=== PATIENT | female | born 1975 | race Caucasian/White ===

== ENCOUNTER → 2017-04-11 | Outpatient (CLI) | payer BC ==
[~2017-04-11] MED LIST: CIPRO500 MG PO; DEXILANT PO; HYDROCHLOROTHIA25 MG PO; HYDROCODONE-AP1 EA23 PO; POTASSIUM CHLO20 ME1 PO; PROAIR HFA INH8.5 GM INH; SINCALIDE 3 MCG/VIAL INJ ONE; SYMAX DUOTAB0.375 MG PO; VITAMIN D1000 UNI1 PO; Z.0.LEVAQUIN500 MG PO; ZOFRAN ODT4 MG PO
--- NOTE | 2017-04-11 16:35 | Diagnostic Imaging Report ---
Hepatobiliary Scan with Gallbladder Ejection Fraction Clinical information: Intermittent upper abdominal pain Report: Following intravenous administration of 6.8 millicuries of Tc-99m mebrofenin, dynamic images of the abdomen in the anterior projection were obtained through 46 minutes. Sincalide (CCK analog) 1.7 micrograms was administered intravenously over 30 minutes with additional imaging for determination of gallbladder ejection fraction. Perfusion to the liver is normal. Extraction of tracer from the blood pool by the liver parenchyma is normal. Tracer is seen promptly within the biliary tract. The gallbladder begins to fill by 18 minutes post-injection of tracer. Tracer is seen in the small bowel by 5 minutes. The gallbladder ejection fraction with administration of sincalide is 92% (normal greater than 40%). Impression: 1. Filling of the gallbladder excludes the diagnosis of acute cystic duct obstruction/acute cholecystitis. 2. Normal gallbladder ejection fraction of 92% does not support the clinical diagnosis of chronic cholecystitis/gallbladder dyskinesia. Signed by: Dr. Elida Plummer M.D. on 04/11/2017 4:31 PM
== END ==
LOC: NM 12:54
PROVIDERS: ATTEND Internal Medicine Gastroenterology
DX: R10.11 Right upper quadrant pain (principal); R10.12 Left upper quadrant pain
CPT/HCPCS: 78227; 81025; A9537; J2805

== ENCOUNTER → 2018-06-06 | Outpatient (CLI) | payer BC ==
[~2018-06-06] MED LIST changes: +DIATRIZOATE MEGL/DIATRIZOA SOD 30 ML BTL PO ONE; -SINCALIDE 3 MCG/VIAL INJ ONE
--- NOTE | 2018-06-06 16:23 | Diagnostic Imaging Report ---
EXAMINATION: CT of the abdomen and pelvis without contrast. TECHNIQUE: Spiral CT images of the abdomen and pelvis were performed from the lung bases to the lesser trochanters. No intravenous contrast was given per iodine allergy. Coronal and sagittal reformatted images were obtained. COMPARISON: Right upper quadrant pain, cholecystectomy in April 25, 2018 CLINICAL HISTORY:Abdominal pain DISCUSSION: ABSENCE OF INTRAVENOUS CONTRAST DECREASES SENSITIVITY FOR DETECTION OF FOCAL LESIONS AND VASCULAR PATHOLOGY. ABDOMEN/PELVIS: LOWER THORAX: Unremarkable. HEPATOBILIARY:No focal hepatic lesion or intrahepatic biliary dilatation. The gallbladder has been removed with metallic clips in the gallbladder fossa. Hepatic parenchyma is diffusely hypoattenuating relative to the spleen, compatible with steatosis. SPLEEN: No splenomegaly. PANCREAS: No focal masses or ductal dilatation. ADRENALS: No adrenal nodules. KIDNEYS/URETERS: No hydronephrosis, stones, or solid mass lesions. PELVIC ORGANS/BLADDER: Urinary bladder is incompletely distended but otherwise unremarkable. Uterus is anteflexed and appears normal. No adnexal mass. PERITONEUM/RETROPERITONEUM: Trace free pelvic fluid average attenuation 10-15 Hounsfield units. Dropped surgical clip in the deep pelvis. No pneumoperitoneum. LYMPH NODES: No pelvic sidewall, retroperitoneal, or mesenteric lymphadenopathy. VESSELS: Limited evaluation without intravenous contrast. The abdominal aorta is nonaneurysmal. GI TRACT: The large bowel shows no distention or wall thickening. Status post appendectomy. No small bowel dilatation to suggest obstruction. BONES AND SOFT TISSUES: No osseous destructive lesions. Bone islands intertrochanteric right femur and left femoral head. Degenerative disc changes and facet arthropathy of the lower lumbar spine. Transitional lumbosacral anatomy. IMPRESSION: No acute intra-abdominal or pelvic CT abnormalities. Trace free pelvic fluid is likely physiologic in a patient of this age. Hepatic steatosis. Signed by: Dr. Jermaine Coy M.D. on 06/06/2018 4:20 PM
== END ==
LOC: CT 14:31
PROVIDERS: ATTEND Internal Medicine Gastroenterology
DX: R10.11 Right upper quadrant pain (principal)
CPT/HCPCS: 74176; 81025

== ENCOUNTER → 2018-06-16 | Day surgery (SDC) | payer BC ==
[~2018-06-16] MED LIST changes: -DIATRIZOATE MEGL/DIATRIZOA SOD 30 ML BTL PO ONE; +FENTANYL CITRATE/PF 100MCG/2 ML INJ ONE; +HYDRALAZINE HCL 20 MG/ML VIAL ONE; +HYOSCYAMINE SULFATE 0.5 MG/ML INJ ONE; +LABETALOL HCL 5 MG/ML 20ML VIAL ONE; +LIDOCAINE HCL 2% LOCAL INJ 5 ML SDV VIAL INJ ONE; +METOCLOPRAMIDE HCL 10 MG/2ML VIAL ONE; +MIDAZOLAM HCL 2 MG/2 ML VIAL ONE; +ONDANSETRON HCL INJ 2MG/ML 2ML 2 MG/ML VIAL ONE; +PROPOFOL IV EMULSION 10 MG/ML 50 ML VIAL ONE
[2018-06-16 09:27] VITALS: BP 135/79
[2018-06-16 09:45] VITALS: BP 132/95
[2018-06-16 10:00] VITALS: BP 135/80
[2018-06-16 10:09] LABS: WBC,FECAL (FECAL LACTOFERRIN) NEGATIVE (NEGATIVE)
[2018-06-16 10:15] VITALS: BP 132/70
[2018-06-16 10:30] VITALS: BP 110/99
[2018-06-16 11:00] VITALS: BP 117/80
[2018-06-16 14:20] LABS: C DIFFICILE TOXIN A&B AMP PROB NEGATIVE (NEGATIVE)
--- NOTE | 2018-06-16 19:58 | Operative Report ---
DATE OF PROCEDURE: 06/16/2018 SURGEON: Herman Brown MD PROCEDURES: Esophagogastroduodenoscopy with biopsies and colonoscopy with polypectomy and biopsies. INDICATIONS FOR EGD: Upper abdominal pain, nausea, and vomiting. INDICATIONS FOR COLONOSCOPY: Diarrhea and right lower quadrant pain. MEDICATIONS: The patient was done under MAC. Please see anesthesiologist's note. PROCEDURE IN DETAIL: With the patient in left lateral decubitus position, flexible fiberoptic Olympus gastroscope was introduced into the esophagus under direct visualization without any difficulty. There was some patchy erythema noted in distal esophagus. GE junction was nodular and that was biopsied. The scope was then advanced with ease into the stomach and mucosa overlying the antrum and the body revealed some patchy areas of erythema and low-grade to moderate edema and biopsies were obtained and sent to stain for H pylori. Pylorus appeared to be of normal contour and shape, it was intubated with ease and the scope was advanced all the way to the second portion of the duodenum. The scope was then withdrawn slowly. Mucosa overlying the proximal second portion and duodenal bulb grossly appeared to be within normal limits. Biopsies were obtained to rule out sprue. The scope was then withdrawn back into the stomach and retroflexed and mucosa overlying the fundus and cardia appeared to be within normal limits. The scope was then straightened out and stomach was decompressed. The scope was subsequently withdrawn. The patient tolerated procedure well. IMPRESSION: 1. Distal esophagitis. 2. Gastroesophageal junction, nodular, biopsied. 3. Gastritis, biopsied. Biopsies sent to stain for H pylori. 4. Rule out sprue. PLAN: Follow up histology. Initiate Dexilant 60 mg one p.o. q.a.m. before meals and Carafate 1 g p.o. before meals t.i.d. and at bedtime. The patient was then turned around and after adequate lubrication of the anal canal, a flexible fiberoptic Olympus colonoscope was inserted into the rectum with ease and advanced all the way to the cecum. Mucosa overlying the cecum appeared to be within normal limits. The ileocecal valve was intubated and the scope was advanced into the terminal ileum. Biopsies were obtained. The scope was then withdrawn back into the colon. It was then withdrawn slowly. Mucosa overlying the ascending colon appeared to be within normal limits. One polyp was snared from the transverse colon. The mucosa overlying the transverse revealed some patchy areas of erythema and low-grade edema. The inflammatory changes were more marked in the left colon, but there was still patchy mild and multiple random biopsies were obtained. One polyp was hot biopsied from the sigmoid colon and one polyp was hot biopsied from the rectum. The scope was then retroflexed into the distal rectum and small internal hemorrhoids were noted, none of which were actively bleeding. The scope was then straightened out. It was subsequently withdrawn after securing an adequate stool specimen that was sent for the appropriate stool studies. The patient tolerated procedure well. IMPRESSION: 1. Transverse colon polyp, snared. 2. Mild patchy left-sided colitis. 3. Sigmoid colon polyp, hot biopsied. 4. Proctitis, mild. 5. Rectal polyp, hot biopsied. 6. Internal hemorrhoids, none actively bleeding. PLAN: Follow up histology. Follow up stool studies. Start Questran 4 g p.o. b.i.d. and Bentyl 20 mg one p.o. t.i.d. The patient might benefit from a followup colonoscopy in 3 years. Herman Brown MD [facility]ANKI /[id number] cc: Slade Ballard DO
--- OUTSIDE RECORDS SUMMARY | 2018-06-18 10:28 | XMS REPORT | Summary of Care ---
Author Organization Unknown Address Unknown Phone Unavailable Encounter HQ Anair_marito([facility]) [id number] Date(s): 06/19/13 - 06/19/13 [facility] Outpatient Imaging - [address] [address]- [place] Discharge Disposition: Home Physician Attending: Brian Nowak MD Reason for Visit 786.50 - CHEST PAIN NOS Problem List No data available for this section Allergies, Adverse Reactions, Alerts No data available for this section Medications No data available for this section Medications Administered During Your Visit No data available for this section Immunizations No data available for this section
--- OUTSIDE RECORDS SUMMARY | 2018-06-18 10:28 | XMS REPORT | Summary of Care ---
Author Author [facility] Outpatient Imaging [facility] Address Unknown Phone Unavailable Encounter HQ Encntr_alivaishali(FIN) [id number] Date(s): 01/06/17 - 01/06/17 [facility] Outpatient [facility] [address] [address], [address] [place] [phone] Discharge Disposition: Home or Self Care Attending Physician: Brennan Whitaker MD Vital Signs No data available for this section Problem List No data available for this section Allergies, Adverse Reactions, Alerts No data available for this section Medications No data available for this section Results No data available for this section Immunizations No data available for this section Procedures No data available for this section Social History No data available for this section Assessment and Plan No data available for this section
--- OUTSIDE RECORDS SUMMARY | 2018-06-18 10:28 | XMS REPORT | Clinical Summary ---
Author Author [facility] Organization [facility] Address Unknown Phone Unavailable Care Team Providers Care Front Office Specialist Name Role Phone Hank Ballard MD PCP Allergies Comments Active Allergy Reactions Severity Noted Date Codeine 09/14/2017 Fish Oil 09/14/2017 Penicillins 09/14/2017 Sulfa (Sulfonamide 09/14/2017 Antibiotics) Medications End Date Status Medication Sig Dispensed Refills Start Date Active PROAIR HFA 90 Inhale 2 2 mcg/actuation inhaler puffs every 4 8 (four) hours as needed. May take every 4-6 hrs Active hydroCHLOROthiazide Take 12.5 mg 0 (HYDRODIURIL) 12.5 MG by mouth tablet daily. Active ergocalciferol (VITAMIN Take 50,000 0 D2) 50,000 unit capsule Units by mouth once a week. Active potassium gluconate 595 Take 1 tablet 0 mg (99 mg) tablet by mouth daily. Active albuterol (ACCUNEB) 0.63 Take 1 ampule 0 mg/3 mL nebulizer by solution nebulization every 6 (six) hours as needed for wheezing. Active acetaminophen (TYLENOL) Take 325 mg 0 325 MG tablet by mouth every 6 (six) hours as needed for fever. 09/23/2017 ciprofloxacin (CIPRO) 500 Take 1 tablet 10 tablet 0 MG tablet (500 mg 8 total) by mouth 2 (two) times a day for 5 days. 10/18/2017 ondansetron (ZOFRAN) 4 MG Take 1 tablet 20 tablet 0 tablet (4 mg total) 8 by mouth every 8 (eight) hours as needed for nausea or vomiting for up to 30 days. Active Problems Problem Noted Date Asthma 09/15/2017 Chronic kidney disease 09/15/2017 Overview: Normal GFR at this time Intractable cyclical vomiting with nausea 09/14/2017 Encounters Care Team Description Date Type Specialty Sherif Briones, Deshaun Coffey MD Intractable cyclical vomiting with nausea (Primary Dx); Viral gastroenteritis 09/14/2017 Emergency General Internal Medicine - 09/18/2017 after 06/17/2017 Social History Date Tobacco Use Types Packs/Day Years Used Never Smoker Smokeless Tobacco: Never Used Alcohol Use Drinks/Week oz/Week Comments No Sex Assigned at Date Recorded Not on file Industry Job Start Date Occupation Not on file Not on file Not on file Travel End Travel History Travel Start No recent travel history available. Last Filed Vital Signs Time Taken Vital Sign Reading 09/18/2017 7:18 PM CDT Blood Pressure 143/86 09/18/2017 8:13 PM CDT Pulse 94 09/18/2017 7:18 PM CDT Temperature 37 C (98.6 F) 09/18/2017 8:13 PM CDT Respiratory Rate 18 09/18/2017 7:18 PM CDT Oxygen Saturation 98% - Inhaled Oxygen - Concentration 09/14/2017 1:46 PM CDT Weight 78 kg (172 lb) 09/14/2017 1:46 PM CDT Height 149.9 cm (4' 11") 09/14/2017 1:46 PM CDT Body Mass Index 34.74 Plan of Treatment Health Maintenance Due Date Last Done Comments CERVICAL CANCER SCREENING 1998 INFLUENZA VACCINE 09/06/2018 Procedures Comments Procedure Name Priority Date/Time Associated Diagnosis ZZESTIMATED GFR STAT 09/18/2017 6:20 PM CDT COMPREHENSIVE METABOLIC STAT 09/18/2017 PANEL 6:20 PM CDT HC COMPLETE BLD COUNT STAT 09/18/2017 W/AUTO DIFF 6:[address] ABDOMEN PELVIS WO Routine 09/15/2017 CONTRAST 10:14 AM CDT XR CHEST 1 VW PORTABLE STAT 09/14/2017 2:41 PM CDT ZZESTIMATED GFR STAT 09/14/2017 2:38 PM CDT BASIC METABOLIC PANEL STAT 09/14/2017 2:38 PM CDT HC COMPLETE BLD COUNT STAT 09/14/2017 W/AUTO DIFF 2:38 PM CDT ECG 12-LEAD STAT 09/14/2017 1:46 PM CDT after 06/17/2017 Results * Estimated GFR (09/18/2017 6:20 PM CDT) Only the most recent of 2 results within the time period is included. GFR Non Af Amer 61 mL/min/1.73 m2 [facility] DEPARTMENT OF PATHOLOGY AND GENOMIC MEDICINE GFR Af Amer 74 mL/min/1.73 m2 [facility] DEPARTMENT OF Comment: PATHOLOGY AND Chronic kidney disease: <60 GENOMIC MEDICINE mL/min/1.73m2 Kidney failure: <15 mL/min/1.73m2 The estimated GFR is calculated from the IDMS-traceable Modification of Diet in Renal Disease Equation. The accuracy of the calculation is poor when the creatinine is normal. Calculated values >90 mL/min/1.73m2 are not reported. This equation has not been validated in children (<18 years), women, the elderly (>70 years), or ethnic groups other than Caucasians and Americans. Specimen Plasma specimen Performing Organization Address City/State/Zipcode Phone Number [facility] [place] [address] [place] [address] PATHOLOGY AND GENOMIC MEDICINE * CBC with platelet and differential (09/18/2017 6:20 PM CDT) Only the most recent of 2 results within the time period is included. WBC 10.54 4.50 - 11.00 k/uL [facility] DEPARTMENT OF PATHOLOGY AND GENOMIC MEDICINE RBC 4.41 4.20 - 5.50 m/uL [facility] DEPARTMENT OF PATHOLOGY AND GENOMIC MEDICINE HGB 12.6 12.0 - 16.0 g/dL [facility] DEPARTMENT OF PATHOLOGY AND GENOMIC MEDICINE HCT 39.2 37.0 - 47.0 % [facility] DEPARTMENT OF PATHOLOGY AND GENOMIC MEDICINE MCV 88.9 82.0 - 100.0 fL [facility] DEPARTMENT OF PATHOLOGY AND GENOMIC MEDICINE MCH 28.6 27.0 - 34.0 pg [facility] DEPARTMENT OF PATHOLOGY AND GENOMIC MEDICINE MCHC 32.1 31.0 - 37.0 g/dL [facility] DEPARTMENT OF PATHOLOGY AND GENOMIC MEDICINE RDW - SD 40.6 37.0 - 55.0 fL [facility] DEPARTMENT OF PATHOLOGY AND GENOMIC MEDICINE MPV 9.9 8.8 - 13.2 fL [facility] DEPARTMENT OF PATHOLOGY AND GENOMIC MEDICINE Platelet count 358 150 - 400 k/uL [facility] DEPARTMENT OF PATHOLOGY AND GENOMIC MEDICINE Nucleated RBC 0.00 /100 WBC [facility] DEPARTMENT OF PATHOLOGY AND GENOMIC MEDICINE Neutrophils 68.3 39.0 - 69.0 % [facility] DEPARTMENT OF PATHOLOGY AND GENOMIC MEDICINE Lymphocytes 21.4 (L) 25.0 - 45.0 % [facility] DEPARTMENT OF PATHOLOGY AND GENOMIC MEDICINE Monocytes 6.3 0.0 - 10.0 % [facility] DEPARTMENT OF PATHOLOGY AND GENOMIC MEDICINE Eosinophils 3.1 0.0 - 5.0 % [facility] DEPARTMENT OF PATHOLOGY AND GENOMIC MEDICINE Basophils 0.6 0.0 - 1.0 % [facility] DEPARTMENT OF PATHOLOGY AND GENOMIC MEDICINE Specimen Blood Performing Organization Address City/State/Zipcode Phone Number [facility] [phone] [place] [address] [place] [address] PATHOLOGY AND GENOMIC MEDICINE * Comprehensive metabolic panel (09/18/2017 6:20 PM CDT) Sodium 138 135 - 148 mEq/L [facility] DEPARTMENT OF PATHOLOGY AND GENOMIC MEDICINE Potassium 4.4 3.5 - 5.0 mEq/L [facility] DEPARTMENT OF PATHOLOGY AND GENOMIC MEDICINE Chloride 104 98 - 112 mEq/L [facility] DEPARTMENT OF PATHOLOGY AND GENOMIC MEDICINE CO2 22 (L) 24 - 31 mEq/L [facility] DEPARTMENT OF PATHOLOGY AND GENOMIC MEDICINE Anion gap 12@ANIO 7 - 15 mEq/L [facility] DEPARTMENT OF PATHOLOGY AND GENOMIC MEDICINE BUN 14 6 - 20 mg/dL [facility] DEPARTMENT OF PATHOLOGY AND GENOMIC MEDICINE Creatinine 1.0 (H) 0.5 - 0.9 mg/dL [facility] DEPARTMENT OF PATHOLOGY AND GENOMIC MEDICINE Glucose 134 (H) 65 - 99 mg/dL [facility] DEPARTMENT OF PATHOLOGY AND GENOMIC MEDICINE Calcium 8.7 8.3 - 10.2 mg/dL [facility] DEPARTMENT OF PATHOLOGY AND GENOMIC MEDICINE Protein 6.9 6.3 - 8.3 g/dL [facility] DEPARTMENT OF Comment: PATHOLOGY AND GENOMIC MEDICINE 4.6-7.0 g/dL 1 week 4.4-7.6 g/dL 7 months-1year 5.1-7.3 g/dL 1-2 years5.6-7 .5 g/dL >3 years6.0-8 .0 g/dL 18-150 6.3-8.3 g/dL Albumin 4.0 3.5 - 5.0 g/dL [facility] DEPARTMENT OF PATHOLOGY AND GENOMIC MEDICINE A/G ratio 1.4 0.7 - 3.8 [facility] DEPARTMENT OF PATHOLOGY AND GENOMIC MEDICINE Alkaline phosphatase 92 35 - 104 U/L [facility] DEPARTMENT OF PATHOLOGY AND GENOMIC MEDICINE AST 56 (H) 10 - 35 U/L [facility] DEPARTMENT OF PATHOLOGY AND GENOMIC MEDICINE ALT 48 5 - 50 U/L [facility] OF PATHOLOGY AND GENOMIC MEDICINE Total bilirubin 0.3 0.0 - 1.2 mg/dL [facility] DEPARTMENT OF PATHOLOGY AND GENOMIC MEDICINE Specimen Plasma specimen Performing Organization Address City/State/Zipcode Phone Number [facility] DEPARTMENT [address] [place] [address] PATHOLOGY AND GENOMIC MEDICINE * CT Abdomen Pelvis Wo Contrast (09/15/2017 10:14 AM CDT) Narrative Performed At EXAMINATION:CT ABDOMEN PELVIS WO CONTRAST RADIANT CLINICAL HISTORY:Abd painunspecified, Nauseavomiting TECHNIQUE: Multiple axial images of the abdomen and pelvis were obtained without intravenous administration of iodinated contrast. Sagittal and coronal computerized reformatted images were also obtained. The lack of intravenous contrast reduces the sensitivity of detecting solid organ disease. CT scans are performed using radiation dose reduction techniques. Technical factors are evaluated and adjusted to ensure appropriate moderation of exposure. Automated dose management technology is applied to adjust radiation exposure while achieving a diagnostic quality image. COMPARISON:None. FINDINGS: The unenhanced spleen, adrenal glands, pancreas, liver, gallbladder, and kidneys are normal. There are no renal calculi. Abdominal aorta is normal in caliber. There is no lymphadenopathy. Appendix has been removed. There are diverticula within the colon without findings of diverticulitis. No bowel obstruction is present. There is a small amount of pelvic ascites. No pelvic mass or pelvic lymphadenopathy are seen. There is atelectasis in the lung bases. Degenerative changes of the lower thoracic and lumbosacral spine are noted. IMPRESSION: No acute findings. Diverticulosis without findings of diverticulitis. [id number] Procedure Note Interface, Radiology Results Incoming - 09/15/2017 10:50 AM CDT EXAMINATION: CT ABDOMEN PELVIS WO CONTRAST CLINICAL HISTORY: Abd pain unspecified, Nausea vomiting TECHNIQUE: Multiple axial images of the abdomen and pelvis were obtained without intravenous administration of iodinated contrast. Sagittal and coronal computerized reformatted images were also obtained. The lack of intravenous contrast reduces the sensitivity of detecting solid organ disease. CT scans are performed using radiation dose reduction techniques. Technical factors are evaluated and adjusted to ensure appropriate moderation of exposure. Automated dose management technology is applied to adjust radiation exposure while achieving a diagnostic quality image. COMPARISON: None. FINDINGS: The unenhanced spleen, adrenal glands, pancreas, liver, gallbladder, and kidneys are normal. There are no renal calculi. Abdominal aorta is normal in caliber. There is no lymphadenopathy. Appendix has been removed. There are diverticula within the colon without findings of diverticulitis. No bowel obstruction is present. There is a small amount of pelvic ascites. No pelvic mass or pelvic lymphadenopathy are seen. There is atelectasis in the lung bases. Degenerative changes of the lower thoracic and lumbosacral spine are noted. IMPRESSION: No acute findings. Diverticulosis without findings of diverticulitis. [facility]-[id number] Performing Organization Address [facility] Phone Number [facility] [address] [place] [address] * XR Chest 1 Vw Portable (09/14/2017 2:41 PM CDT) Narrative Performed At EXAMINATION:XR CHEST 1 VW PORTABLE RADIANT CLINICAL HISTORY:COUGH COMPARISON: None . IMPRESSION: 1.Heart size is at upper limits of normal. 2.Lungs are clear. 3.A pleural effusion or pneumothorax is not identified. 4.Osseous structures are intact. [id number] Procedure Note Interface, Radiology Results Incoming - 09/14/2017 3:02 PM CDT EXAMINATION: XR CHEST 1 VW PORTABLE CLINICAL HISTORY: COUGH COMPARISON: None . IMPRESSION: 1. Heart size is at upper limits of normal. 2. Lungs are clear. 3. A pleural effusion or pneumothorax is not identified. 4. Osseous structures are intact. [id number] Performing Organization Address [facility] Phone Number [facility] [address] [place] [address] * Basic metabolic panel (09/14/2017 2:38 PM CDT) Sodium 139 135 - 148 mEq/L [facility] DEPARTMENT OF PATHOLOGY AND GENOMIC MEDICINE Potassium 4.1 3.5 - 5.0 mEq/L [facility] DEPARTMENT OF PATHOLOGY AND GENOMIC MEDICINE Chloride 105 98 - 112 mEq/L [facility] DEPARTMENT OF PATHOLOGY AND GENOMIC MEDICINE CO2 24 24 - 31 mEq/L [facility] DEPARTMENT OF PATHOLOGY AND GENOMIC MEDICINE Anion gap 10@ANIO 7 - 15 mEq/L [facility] DEPARTMENT OF PATHOLOGY AND GENOMIC MEDICINE BUN 12 6 - 20 mg/dL [facility] DEPARTMENT OF PATHOLOGY AND GENOMIC MEDICINE Creatinine 0.9 0.5 - 0.9 mg/dL [facility] DEPARTMENT OF PATHOLOGY AND GENOMIC MEDICINE Glucose 92 65 - 99 mg/dL [facility] OF PATHOLOGY AND GENOMIC MEDICINE Calcium 8.8 8.3 - 10.2 mg/dL [facility] DEPARTMENT OF PATHOLOGY AND GENOMIC MEDICINE Specimen Plasma specimen Performing Organization Address City/[facility] Phone Number [address] [place] [address] PATHOLOGY AND GENOMIC MEDICINE * ECG 12 lead (09/14/2017 1:46 PM CDT) Ventricular rate 90 [facility] Atrial rate 90 [facility] ID interval 152 [facility] QRSD interval 80 [facility] QT interval 334 [facility] QTC interval 408 [facility] P axis 1 26 [facility] QRS axis 1 6 [facility] T wave axis 12 [facility] EKG impression Normal sinus rhythm-Normal [facility] ECG-No previous ECGs available- Performing Organization Address City/[facility] Hospital[facility] Phone Number [facility] [address] [place] [address] after 06/17/2017 Insurance Payer Benefit Subscriber ID Type Phone Address Plan / Group BCBS BCBS OUT xxxxxxxxxxxx PPO OF STATE Advance Directives Patient has advance care planning documents on file. For more information, plevaishali e contact: Orlando Luke [address] [place] [address]
--- OUTSIDE RECORDS SUMMARY | 2018-06-18 10:28 | XMS REPORT | Continuity of Care Document ---
Author Author [facility] Interface Address Unknown Phone Unavailable Problems Problem Status Onset Date Classification Date Reported Comments Source [id number] SCLEROSIS Active 05/19/2016 [place] 786.50 - CHEST PAIN NOS Active 06/19/2013 [facility] Medications Medication Details Route Status Patient Instructions Ordering Provider Order Date Source Allergies, Adverse Reactions, Alerts Substance Category Reaction Severity Reaction type Status Date Reported Comments Source Immunizations Immunization Date Given Site Status Last Updated Comments Source Results Order Name Results Value Reference Range Date Interpretation Comments Source Retroperitoneal Complete US Retroperitoneal Complete US EXAM: US RETROPERITONEAL COMPLETE DATE: 01/06/2017 8:27 AM 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 Lower back pain for the past 6 months increasing over the past 3 weeks. Bilateral leg swelling for the past 6 months. ADDITIONAL INFORMATION: None. COMPARISON: None. TECHNIQUE: Multiplanar grayscale and color Doppler ultrasound images of the kidneys, aorta, IVC and urinary bladder. DISCUSSION: Right kidney Hydronephrosis: None. Size: 9.8 x 4.2 x 4.6 cm Echogenicity: Normal. Parenchymal thickness and contour: Normal. Calculi: None. Cysts: None. Masses: None. Left kidney Hydronephrosis: None. Size: 10.0 x 4.9 x 4.7 cm Echogenicity: Normal. Parenchymal thickness and contour: Normal. Calculi: Within the inferior pole of the left kidney, there is a 0.7 x 0.6 x 0.6 cm hyperechoic calculus with posterior acoustic shadowing/twinkle artifact. Cysts: None. Masses: None. Abdominal aorta:There is no sonographic evidence of aneurysm or of dissection where visualized. IVC: Normal where visualized. Bladder: No wall thickening, masses, or calculi are seen. Normal ureteral jets are seen confirming bilateral ureteral patency. Prevoid bladder volume is estimated to be 233 cc. Postvoid bladder volume is estimated to be 45 cc. Other: The liver displays diffuse increased echogenicity were visualized within compared with the right kidney. IMPRESSION: 1. 7 mm nonobstructive inferior pole left renal calculus. 2. No abnormalities of the right kidney are seen. 3. Moderate postvoid residual in the urinary bladder of approximately 45 cc. 4. The liver displays a nonspecific diffuse increased echogenicity were visualized, likely from steatosis (fatty infiltration). 01/06/2017 - - Read by: Han Cosby MD Dictated Date/time: 01/06/17 09:16 Electronically Signed by: Han Cosby MD 01/06/17 09:20 FINAL REPORT [facility] BODY FLUIDS Color CSF Colorless (05/25/16 9:01 AM) Colorless 05/25/2016 [facility] BODY FLUIDS Clarity CSF Clear (05/25/16 9:01 AM) Clear 05/25/2016 [facility] FLUIDS Supernat CSF Colorless (05/25/16 9:01 AM) Colorless 05/25/2016 [facility] FLUIDS WBC CSF 0 /mm3 0 - 53 05/25/2016 [facility] FLUIDS RBC CSF 1 /mm3 0 - 03 05/25/2016 [facility] Tube Num CSF 4 05/25/2016 [facility] FLUIDS Glucose CSF 57 mg/dL 45 - 80 05/25/2016 [facility] FLUIDS Protein CSF 43 mg/dL 15 - 45 05/25/2016 [facility] MYELIN BASIC PROT CSF 1.1 ng/mL 0.0 - 1.2 05/25/2016 Result Comment: Results for this test are for research purposes only by the assay's family practice physician assistant. The performance characteristics of this product have not been established. Results should not be used as a diagnostic procedure without confirmation of the diagnosis by another medically established diagnostic product or procedure. Performed At: [facility] [id number] Jay Fuentes MD Ph:[phone] [facility] IMMUNOLOGY IgG Lvl CSF null 2.0 - 4.0 05/25/2016 [facility] IgG Lvl CSF 2.4 mg/dL 2.0 - 4.0 05/25/2016 [facility] IMMUNOLOGY Alb CSF (CPE) 26.3 mg/dL 14.0 - 25.0 05/25/2016 [facility] IMMUNOLOGY Alb (CPE) 3900.0 05/25/2016 [facility] IgG (CPE) 751 mg/dL 694 - 1618 05/25/2016 [facility] IMMUNOLOGY IgG Index 0.5 mg/dL 0.3 - 0.7 05/25/2016 [facility] URINE CHEM U Preg Negative (05/25/16 8:18 AM) Negative 05/25/2016 [facility] Spine lumbar puncture w fluoro DX Spine lumbar puncture w fluoro DX Patient Name: AMBROSIO CHILD : 1975; Age: 40 years y/o Female MR: [id number] Study: Spine lumbar puncture w fluoro DX 05/25/2016 7:43 AM CDT Clinical Indication: G35 Multiple sclerosis, pt. stated hx. of fall in Feb...hx. of epistaxis, pain, blurred vision, gait and balance problems, ringing in ears, weakness, tremors, dizziness, blackouts, left sided tingling/numbness since - fluoro time: 09 sec. dose: 4 mGy. COMPARISON: None. EXAM: Lumbar Puncture, flouroscopic guidance CONSENT: The patient denied any drug allergies. The patient denied intake of any blood thinners, including Plavix, aspirin and warfarin. The risks and benefits of the procedure, the risk of doing nothing, as well as alternative therapies were explained to the patient. The patient was then allowed to ask questions. The patient stated understanding and agreed to proceed. It is my judgment the patient does understand the treatment plan. TECHNIQUE AND FINDINGS: Time out procedure was performed. The lower back was prepped and draped in sterile fashion with the patient in prone position. Under fluoroscopic guidance a 22 gauge Quincke tip needle was advanced into the thecal sac at the L2-L3 interspace, and 8 mL of clear spinal fluid was withdrawn without complication. COMPLICATION: None. IMPRESSION: Fluoroscopically guided lumbar puncture. SL: [id number] 05/25/2016 - - Read by: Tadeo Iqbal MD Dictated Date/time: 05/25/16 10:03 Electronically Signed by: Tadeo Iqbal MD 05/25/16 10:04 FINAL REPORT [facility] Small bowel series DX Small bowel series DX EXAMINATION: Small Bowel Follow-Through HISTORY: Abdominal pain; food intolerance COMPARISON: None. TECHNIQUE: After a customer sales consultant radiograph was obtained, the patient was given barium to drink and multiple fluoroscopic and conventional overhead radiographs of the stomach, duodenum, and small bowel were obtained. FINDINGS: Government Minister radiograph demonstrates a normal bowel gas pattern with air and stool throughout the colon. There is transit of contrast from stomach to the colon by less than 20 minutes. The duodenum, jejunum, and ileum are normal in caliber with a normal mucosal fold pattern. There is no obstruction or extraluminal extravasation of contrast. There are no obstructing masses or strictures identified. Fluoroscopy time: 7 seconds IMPRESSION: 1. Rapid transit time with contrast appearing within the colon at less than 20 minutes. 2. Otherwise, unremarkable small bowel follow-through examination. 01/13/2014 - - Read by: Hugh Pierson MD Dictated Date/time: 01/13/14 12:42 Electronically Signed by: Hugh Pierson MD 01/13/14 12:45 FINAL REPORT [facility] Chest 2 views Chest 2 views CHEST RADIOGRAPHY CLINICAL HISTORY: Chest pain. COMPARISON IMAGING: None. FINDINGS: Two views of the chest were acquired and submitted for evaluation. No pleural fluid is identified. The contour of the cardiac silhouette is within normal limits. There is no significant pulmonary consolidation or nodularity. Bones are unremarkable. IMPRESSION: No significant abnormality. 06/19/2013 - - Read by: John Jones MD Dictated Date/time: 06/19/13 16:47 Electronically Signed by: John Jones MD 06/19/13 16:48 FINAL REPORT [facility] Vital Signs Vital Sign Value Date Comments Source Encounters Location Location Details Encounter Type Encounter Number Reason For Visit Attending Provider ADM Date DC Date Status Source [facility] [place] [facility] [id number] Brian Nowak 06/19/2013 06/20/2013 [facility] Tripathia [facility] [place] [facility] [id number] Damon Hurley 01/13/2014 01/14/2014 [facility] Hermosilloadena [facility] Outpatient [id number] Frankie Regan 05/25/2016 05/26/2016 [facility] [place] [facility] [id number] Brennan Whitaker 01/06/2017 01/07/2017 [facility] [place] Procedures Procedure Code Date Perfomer Comments Source
--- OUTSIDE RECORDS SUMMARY | 2018-06-18 10:28 | XMS REPORT | Summary of Care ---
Author Author [facility] Organization [facility] Address Unknown Phone Unavailable Encounter HQ Javier(LISA) [id number] Date(s): 05/25/16 - 05/25/16 [facility] [address] [place] [address]- Discharge Disposition: Home or Self Care Attending Physician: Frankie Regan MD Referring Physician: Frankie Regan MD Vital Signs No data available for this section Problem List No data available for this section Allergies, Adverse Reactions, Alerts No data available for this section Medications No data available for this section Results URINE CHEM Most recent to 1 oldest [Reference Range]: U Preg [Negative] Negative (05/25/16 8:18 AM) BODY FLUIDS Most recent to 1 oldest [Reference Range]: Glucose CSF [45-80 57 mg/dL mg/dL] (05/25/16 9:01 AM) Protein CSF [15-45 43 mg/dL mg/dL] (05/25/16 9:01 AM) Tube Num CSF 4 *NA* (05/25/16 9:01 AM) Color CSF Colorless [Colorless] (05/25/16 9:01 AM) Clarity CSF [Clear] Clear (05/25/16 9:01 AM) Supernat CSF Colorless [Colorless] (05/25/16 9:01 AM) RBC CSF [0-0 /mm3] 1 /mm3 *HI* (05/25/16 9:01 AM) WBC CSF [0-5 /mm3] 0 /mm3 (05/25/16 9:01 AM) IMMUNOLOGY Most recent to 1 2 oldest [Reference Range]: MBP CSF [0.0-1.2 1.1 ng/mL 1 ng/mL] *NA* (05/25/16 9:01 AM) IgG Lvl CSF [2.0-4.0 <35.0 mg/dL 2.4 mg/dL mg/dL] *HI* (05/25/16 9:01 AM) (05/25/16 9:01 AM) IgG (CPE) [694-1618 751 mg/dL mg/dL] (05/25/16 9:01 AM) Alb CSF (CPE) 26.3 mg/dL [14.0-25.0 mg/dL] *HI* (05/25/16 9:01 AM) Alb (CPE) 3900.0 (05/25/16 9:01 AM) IgG Index [0.3-0.7 0.5 mg/dL mg/dL] (05/25/16 9:01 AM) 1Result Comment: Results for this test are for research purposes only by the assay's surgical garment assembly supervisor. The performance characteristics of this product have not been established. Results should not be used as a diagnostic procedure without confirmation of the diagnosis by another medically established diagnostic product or procedure. Performed At: [facility] [id number] Jay Fuentes MD Ph:[phone] Immunizations No data available for this section Procedures No data available for this section Social History No data available for this section Assessment and Plan No data available for this section
--- OUTSIDE RECORDS SUMMARY | 2018-06-18 10:28 | XMS REPORT ---
Author Author [facility] Address Unknown Phone Unavailable Care Team Providers Care Shell Maker Lockstitch Name Role Phone LEATHA JUSTINE Unavailable Unavailable JUAN PABLO BALLARD Unavailable Unavailable Payers Payer Name Policy Type Policy Number Effective Date Expiration Date Problems This patient has no known problems. Allergies, Adverse Reactions, Alerts Allergy Name Allergy Type Status Severity Reaction(s) Onset Date Inactive Date Treating Clinician Comments codeine DA Active 2018-04-24 00:00:00 Iodinated Contrast- Oral and IV Dye DA Active SV 2018-03-19 00:00:00 Penicillins DA Active U 2018-03-19 00:00:00 Sulfa (Sulfonamide Antibiotics) DA Active U 2018-03-19 00:00:00 aspirin DA Active U 2018-03-19 00:00:00 fish oil DA Active U 2018-03-19 00:00:00 Iodinated Contrast- Oral and IV Dye DA Active SV 2016-12-30 00:00:00 Penicillins DA Active U 2016-12-30 00:00:00 Sulfa (Sulfonamide Antibiotics) DA Active U 2016-12-30 00:00:00 aspirin DA Active U 2016-12-30 00:00:00 fish oil DA Active U 2016-12-30 00:00:00 Medications This patient has no known medications. Results Test Description Test Time Test Comments Text Results Atomic Results Result Comments CT ABDOMEN/PELVIS WO 2018-06-06 16:13:[address] [address] Patient Name: AMBROSIO CHILD MR #: [id number] : 1975 Age/Sex: 42/F Req #: [id number] [facility] Physician: Ordered by: JUSTINE ZHANG MD Report #: [id number] Location: CT Room/Bed: Procedure: [id number] CT/CT ABDOMEN/PELVIS WO Exam Date: 06/06/18 Exam Time: 1550 REPORT STATUS: Signed EXAMINATION: CT of the abdomen and pelvis without cont rast. TECHNIQUE: Spiral CT images of the abdomen and pelvis were performed from the lung bases to the lesser trochanters. No intravenous contrast was given per iodine allergy. Coronal and sagittal reformatted images were obtained. COMPARISON: Right upper quadrant pain, cholecystectomy in April 25, 2018 CLINICAL HISTORY:Abdominal pain DISCUSSION: ABSENCE OF INTRAVENOUS CONTRAST DECREASES SENSITIVITY FOR DETECTION OF FOCAL LESIONS AND VASCULAR PATHOLOGY. ABDOMEN/PELVIS: LOWER THORAX: Unremarkable. HEPATOBILIARY:No focal hepatic lesion or intrahepatic biliary dilatation. The gallbladder has been removed with metallic clips in the gallbladder fossa. Hepatic parenchyma is diffusely hypoattenuating relative to the spleen, compatible with steatosis. SPLEEN: No splenomegaly. PANCREAS: No focal masses or ductal dilatation. ADRENALS: No adrenal nodules. KIDNEYS/URETERS: No hydronephrosis, stones, or solid mass lesions. PELVIC ORGANS/BLADDER: Urinary bladder is incompletely distended but otherwise unremarkable. Uterus is anteflexed and appears normal. No adnexal mass. PERITONEUM/RETROPERITONEUM: Trace free pelvic fluid average attenuation 10-15 Hounsfield units. Dropped surgical clip in the deep pelvis. No pneumoperitoneum. LYMPH NODES: No pelvic sidewall, retroperitoneal, or mesenteric lymphadenopathy. VESSELS: Limited evaluation without intravenous contrast. The abdominal aorta is nonaneurysmal. GI TRACT: The large bowel shows no distention or wall thickening. Status post appendectomy. No small bowel dilatation to suggest obstruction. BONES AND SOFT TISSUES: No osseous destructive lesions. [place] intertrochanteric right femur and left femoral head. Degenerative disc changes and facet arthropathy of the lower lumbar spine. Transitional lumbosacral anatomy. IMPRESSION: No acute intra-abdominal or pelvic CT abnormalities. Trace free pelvic fluid is likely physiologic in a patient of this age. Hepatic steatosis. Signed by: Dr. Dennise Coy M.D. on 06/06/2018 4:20 PM Dictated By: DENNISE COY MD 19 Transcribed By: ALAN on 06/06/18 1620 COPY TO: JUSTINE ZHANG MD CBC W/AUTO DIFF 2018-04-25 07:37:00 WHITE BLOOD CELL (test code=WBC) 12.0 K/mm3 4.5-12.5 RED BLOOD CELL (test code=RBC) 4.03 mill/mm3 3.7-5.2 HEMOGLOBIN (test code=HGB) 11.3 gram/dL 11.5-15.5 HEMATOCRIT (test code=HCT) 37.0 % 36.0-46.0 MEAN CELL VOLUME (test code=MCV) 91.8 fL 80-98 MEAN CELL HGB (test code=MCH) 28.0 picogram 27.0-33.0 MEAN CELL HGB CONCETRATION (test code=MCHC) 30.5 gram/dL 33.0-36.0 RED CELL DISTRIBUTION WIDTH (test code=RDW) 13.4 % 11.6-16.2 RED CELL DISTRIBUTION WIDTH SD (test code=RDW-SD) 45.5 fL 37.0-51.0 PLATELET COUNT (test code=PLT) 365 K/mm3 150-450 MEAN PLATELET VOLUME (test code=MPV) 10.1 fL 6.7-11.0 NEUTROPHIL % (test code=NT%) 73.4 % 39.0-69.0 IMMATURE GRANULOCYTE % (test code=IG%) 0.5 % 0.0-5.0 LYMPHOCYTE % (test code=LY%) 18.5 % 25.0-55.0 MONOCYTE % (test code=MO%) 7.0 % 0.0-10.0 EOSINOPHIL % (test code=EO%) 0.4 % 0.0-5.0 BASOPHIL % (test code=BA%) 0.2 % 0.0-1.0 NUCLEATED RBC % (test code=NRBC%) 0.0 % 0-0 NEUTROPHIL # (test code=NT#) 8.83 K/mm3 1.8-7.7 IMMATURE GRANULOCYTE # (test code=IG#) 0.06 x10 3/uL 0-0.03 LYMPHOCYTE # (test code=LY#) 2.22 K/mm3 1.0-5.0 MONOCYTE # (test code=MO#) 0.84 K/mm3 0-0.8 EOSINOPHIL # (test code=EO#) 0.05 K/mm3 0.0-0.5 BASOPHIL # (test code=BA#) 0.03 K/mm3 0.0-0.2 NUCLEATED RBC # (test code=NRBC#) 0.00 K/mm3 0.0-0.1 MANUAL DIFF REQUIRED (test code=MDIFF) NO HEPATIC FUNCTION [id number] 07:33:00* Test Item Value Reference Range Comments TOTAL PROTEIN (test code=PROT) 6.6 gram/dL 6.4-8.2 ALBUMIN (test code=ALB) 3.2 g/dL 3.4-5.0 GLOBULIN (test code=GLOB) 3.4 gram/dL 2.7-4.2 ALBUMIN/GLOBULIN RATIO (test code=A/G) 0.9 0.75-1.50 BILIRUBIN TOTAL (test code=BILT) 0.50 mg/dL 0.0-1.0 BILIRUBIN DIRECT (test code=BILD) 0.09 mg/dL 0.0-0.20 SGOT/AST (test code=AST) 47 IUnit/L 15-37 SGPT/ALT (test code=ALT) 60 IUnit/L 12-78 ALKALINE PHOSPHATASE TOTAL (test code=ALKP) 79 IUnit/L 45-117 Note change in reference range due to change in reagent. COMPREHENSIVE METABOLIC [id number] 10:11:00* Test Item Value Reference Range Comments SODIUM (test code=NA) 140 mmol/L 136-145 POTASSIUM (test code=K) 4.5 mmol/L 3.5-5.1 CHLORIDE (test code=CL) 107.0 mmol/L 98-107 CARBON DIOXIDE (test code=CO2) 28.0 mmol/L 21-32 ANION GAP (test code=GAP) 9.5 10-20 GLUCOSE (test code=GLU) 89 mg/dL 74-106 BLOOD UREA NITROGEN (test code=BUN) 13 mg/dL 7-18 GLOMERULAR FILTRATION RATE (test code=GFR) > 60 mL/min >=60 Estimated GFR by using Modified MDRD formula.Chronic kidney disease is defined as either kidney damageor GFR <60 mL/min/1.73 m2 for >3 months. CREATININE (test code=CREAT) 0.80 mg/dL 0.55-1.02 Note change in reference range due to change in reagent. BUN/CREATININE RATIO (test code=BUN/CREA) 15.7 10-20 TOTAL PROTEIN (test code=PROT) 6.6 gram/dL 6.4-8.2 ALBUMIN (test code=ALB) 3.5 g/dL 3.4-5.0 GLOBULIN (test code=GLOB) 3.1 gram/dL 2.7-4.2 ALBUMIN/GLOBULIN RATIO (test code=A/G) 1.1 0.75-1.50 CALCIUM (test code=CA) 8.4 mg/dL 8.5-10.1 BILIRUBIN TOTAL (test code=BILT) 0.40 mg/dL 0.0-1.0 SGOT/AST (test code=AST) 43 IUnit/L 15-37 SGPT/ALT (test code=ALT) 59 IUnit/L 12-78 ALKALINE PHOSPHATASE TOTAL (test code=ALKP) 96 IUnit/L 45-117 Note change in reference range due to change in reagent. COMPREHENSIVE METABOLIC [id number] 09:55:00* Test Item Value Reference Range Comments SODIUM (test code=NA) 140 mmol/L 136-145 POTASSIUM (test code=K) 4.5 mmol/L 3.5-5.1 CHLORIDE (test code=CL) 107.0 mmol/L 98-107 CARBON DIOXIDE (test code=CO2) mmol/L 21-32 ANION GAP (test code=GAP) 10-20 GLUCOSE (test code=GLU) mg/dL 74-106 BLOOD UREA NITROGEN (test code=BUN) mg/dL 7-18 GLOMERULAR FILTRATION RATE (test code=GFR) mL/min >=60 CREATININE (test code=CREAT) mg/dL 0.55-1.02 BUN/CREATININE RATIO (test code=BUN/CREA) 10-20 TOTAL PROTEIN (test code=PROT) gram/dL 6.4-8.2 ALBUMIN (test code=ALB) g/dL 3.4-5.0 GLOBULIN (test code=GLOB) gram/dL 2.7-4.2 ALBUMIN/GLOBULIN RATIO (test code=A/G) 0.75-1.50 CALCIUM (test code=CA) mg/dL 8.5-10.1 BILIRUBIN TOTAL (test code=BILT) mg/dL 0.0-1.0 SGOT/AST (test code=AST) IUnit/L 15-37 SGPT/ALT (test code=ALT) IUnit/L 12-78 ALKALINE PHOSPHATASE TOTAL (test code=ALKP) IUnit/L 45-117 CBC W/AUTO [id number] 09:53:00* Test Item Value Reference Range Comments WHITE BLOOD CELL (test code=WBC) 12.7 K/mm3 4.5-12.5 RED BLOOD CELL (test code=RBC) 4.58 mill/mm3 3.7-5.2 HEMOGLOBIN (test code=HGB) 12.5 gram/dL 11.5-15.5 HEMATOCRIT (test code=HCT) 41.7 % 36.0-46.0 MEAN CELL VOLUME (test code=MCV) 91.0 fL 80-98 MEAN CELL HGB (test code=MCH) 27.3 picogram 27.0-33.0 MEAN CELL HGB CONCETRATION (test code=MCHC) 30.0 gram/dL 33.0-36.0 RED CELL DISTRIBUTION WIDTH (test code=RDW) 13.2 % 11.6-16.2 RED CELL DISTRIBUTION WIDTH SD (test code=RDW-SD) 43.9 fL 37.0-51.0 PLATELET COUNT (test code=PLT) 394 K/mm3 150-450 MEAN PLATELET VOLUME (test code=MPV) 10.2 fL 6.7-11.0 NEUTROPHIL % (test code=NT%) 69.2 % 39.0-69.0 IMMATURE GRANULOCYTE % (test code=IG%) 0.6 % 0.0-5.0 LYMPHOCYTE % (test code=LY%) 21.7 % 25.0-55.0 MONOCYTE % (test code=MO%) 6.4 % 0.0-10.0 EOSINOPHIL % (test code=EO%) 1.7 % 0.0-5.0 BASOPHIL % (test code=BA%) 0.4 % 0.0-1.0 NUCLEATED RBC % (test code=NRBC%) 0.0 % 0-0 NEUTROPHIL # (test code=NT#) 8.78 K/mm3 1.8-7.7 IMMATURE GRANULOCYTE # (test code=IG#) 0.07 x10 3/uL 0-0.03 LYMPHOCYTE # (test code=LY#) 2.75 K/mm3 1.0-5.0 MONOCYTE # (test code=MO#) 0.81 K/mm3 0-0.8 EOSINOPHIL # (test code=EO#) 0.22 K/mm3 0.0-0.5 BASOPHIL # (test code=BA#) 0.05 K/mm3 0.0-0.2 NUCLEATED RBC # (test code=NRBC#) 0.00 K/mm3 0.0-0.1 MANUAL DIFF REQUIRED (test code=MDIFF) NO CBC W/AUTO [id number] 09:50:00* Test Item Value Reference Range Comments WHITE BLOOD CELL (test code=WBC) K/mm3 4.5-12.5 RED BLOOD CELL (test code=RBC) mill/mm3 3.7-5.2 HEMOGLOBIN (test code=HGB) 12.5 gram/dL 11.5-15.5 HEMATOCRIT (test code=HCT) 41.7 % 36.0-46.0 MEAN CELL VOLUME (test code=MCV) fL 80-98 MEAN CELL HGB (test code=MCH) picogram 27.0-33.0 MEAN CELL HGB CONCETRATION (test code=MCHC) gram/dL 33.0-36.0 RED CELL DISTRIBUTION WIDTH (test code=RDW) % 11.6-16.2 RED CELL DISTRIBUTION WIDTH SD (test code=RDW-SD) fL 37.0-51.0 PLATELET COUNT (test code=PLT) K/mm3 150-450 MEAN PLATELET VOLUME (test code=MPV) fL 6.7-11.0 NEUTROPHIL % (test code=NT%) % 39.0-69.0 IMMATURE GRANULOCYTE % (test code=IG%) % 0.0-5.0 LYMPHOCYTE % (test code=LY%) % 25.0-55.0 MONOCYTE % (test code=MO%) % 0.0-10.0 EOSINOPHIL % (test code=EO%) % 0.0-5.0 BASOPHIL % (test code=BA%) % 0.0-1.0 NEUTROPHIL # (test code=NT#) K/mm3 1.8-7.7 LYMPHOCYTE # (test code=LY#) K/mm3 1.0-5.0 MONOCYTE # (test code=MO#) K/mm3 0-0.8 EOSINOPHIL # (test code=EO#) K/mm3 0.0-0.5 BASOPHIL # (test code=BA#) K/mm3 0.0-0.2 - HEPA IMAG INCL GB W [id number] 09:12:00 FAX: Poli Alvarado MD [place]: St: ADM FAX: Juan Manuel [place],Juan Pablo Nathaniel DO [phone] Name: AMBROSIO CHILD [facility] : 1975 Age/S: 42/F [address] [facility] Unit #: [id number] Loc: [address] [place] [id number] Phys: Poli Bazan MD Acct: [id number] Dis Date: Status: ADM IN PHONE #: [phone] Exam Date: 04/23/2018 0910 FAX #: [phone] Reason: contracted gallbladder w/ abd pain. EXAMS: CPT CODE: [id number] HEPA IMAG INCL GB W PHA 18031 HISTORY: Abdominal pain and contracted gallbladder. COMPARISON: CT and ultrasound from previous day. HIDA scan: 6.2 mCi of technetium 99m Choletec and 1.8 mcg of CCK. Sequential images obtai kash. Homogeneous uptake within the liver. Excretion into the bilia ry system as well as into the gallbladder. Ejection fraction calculated to 1% at 15 1/2 minutes. The normal should be greater than 35%. IMPRESSION: Markedly depressed ejection fraction of 1% at 15 1/2 minutes may suggest chronic gallbladder dysmotility and/or biliary dyskinesia. at 0912 Reported and signed by: Igor Caballero M.D. CC: Poli Bazan MD; Juan Pablo Ballard DO Technologist: MYRON LARA Trnscrd Da te/Time/By: 04/23/2018 (911) : By: [email or web address] Orig Print D/T: S: 04/23 (914) PAGE 1 Signed Report [id number] 07:41:00* Test Item Value Reference Range Comments TROPONIN-I (test code=TROPI) <0.015 ng/mL 0-0.045 COMMENTS TO GEOCHEMIST: COLLECT 3 HOURS AFTER PREVIOUS [id number] 05:22:00* Test Item Value Reference Range Comments TROPONIN-I (test code=TROPI) <0.015 ng/mL 0-0.045 COMMENTS TO GEOCHEMIST: COLLECT 3 HOURS AFTER PREVIOUS [id number] 23:15:00* Test Item Value Reference Range Comments TROPONIN-I (test code=TROPI) <0.015 ng/mL 0-0.045 - CT ABD PELVIS W/O [id number] 22:52:00 Name: AMBROSIO CHILD [facility] : 1975 Age/S: 42 / F [address] [facility] Unit #: [id number] Loc: [place] [address] Phys: Gay Washburn DO Acct: [id number] Dis Date: Status: REG ER PHONE #: [phone] Exam Date: 04/22/2018 2235 FAX #: [phone] Reason: abdominal pain, r/o appendicitis EXAMS: CPT CODE: [id number] CT ABD PELVIS W/O CONT 03706 REASON FOR EXAM: abdominal pain, r/o appendicitis EXAM ORDER DATE: 04/22/2018 10:11 PM Ordering Andrew: Gay Washburn DO PROCEDURE: - CT ABD PELVIS W/O CONT COMPARISON: FINDINGS: CT images of the abdomen and pelvis were obtained without IV and without oral contrast at 5mm. Dose modulation, iterative reconstruction, and/or weight based adjustment of the MA/KV was utilized to reduce the radiation dose to as low as reasonably achievable. The liver, spleen, and pancreas are grossly within normal limits. The gall bladder is unremarkable by CT. The kidneys are within normal limits. The urinary bladder is contracted The colon, small bowel, and stomach are within normal limits without evidence of obstruction. The appendix was not seen No evidence of free air . The uterus is unremarkable. IMPRESSION: Nonspecific minimal free fluid in the cul-de-sac. Nonvis ualization of the appendix at 2252 Reported and signed by: López Beatty M.D. CC: Juan Pablo Ballard DO; Gay Washburn DO Technologis t:HUMERA DAYTON CT CTDI: DLP: Trnscb Date/Time: (553) t.JOSHR.VTL Orig Print D/T: S: 04/22/2018 (2 255) CTDI: DLP: PAGE 1 Signed Rep ort - US ABDOMEN [id number] 21:22:00 Name: AMBROSIO CHILD [facility] : 1975 Age/S: 42 / F [address] [facility] Unit #: [id number] Loc: [place] [address] Phys: Justin Washburn DO Acct: [id number] Di s Date: Status: REG ER PHONE #: Exam Date: 04/22/20182111 FAX #: Reason: Abdominal Pain EXAMS: CPT CODE: [id number] US ABDOMEN LTD 00456 REASON FOR EXAM: Abdominal Pain EXAM ORDER DATE: 04/22/2018 8:11 PM At [facility] Andrew: Gay Washburn DO PROCEDURE: - US ABDOMEN LTD FINDINGS: The liver is mildly echogenic. There is no evidence of focal mass identified. The pancreas is within normal limits. The right kidney measures 10 x 3.6 cm. There is no evidence of hydronephrosis. There is no evidence of nephrolithiasis. There is no evidence of renal mass. The gallbladder is contracted without evidence of gallstone. The common bile duct measures 0.4 cm. There is no evidence of ascites. The aorta and IVC are within normal limits. The portal vein is patent with hepatopetal flow IMPRESSION: Fatty liver. Contrac crista gallbladder without evidence of gallstone at 2121 Reported a nd signed by: López Beatty M.D. CC: Juan Pablo Ballard DO; Rafia Washburn DO Technologist: ELIZABTEH YADAV Trnscb Date/Time: 04/22/2018 (2121) t.VTL Orig Print D/T: S: 04/22/2018 (2124) Probe: PAGE 1 Signed Report BASIC METABOLIC [id number] 20:49:00* Test Item Value Reference Range Comments SODIUM (test code=NA) 137 mmol/L 136-145 POTASSIUM (test code=K) 4.3 mmol/L 3.5-5.1 CHLORIDE (test code=CL) 106.0 mmol/L 98-107 CARBON DIOXIDE (test code=CO2) 22.0 mmol/L 21-32 ANION GAP (test code=GAP) 13.3 10-20 GLUCOSE (test code=GLU) 86 mg/dL 74-106 BLOOD UREA NITROGEN (test code=BUN) 14 mg/dL 7-18 GLOMERULAR FILTRATION RATE (test code=GFR) > 60 mL/min >=60 Estimated GFR by using Modified MDRD formula.Chronic kidney disease is defined as either kidney damageor GFR <60 mL/min/1.73 m2 for >3 months. CREATININE (test code=CREAT) 0.90 mg/dL 0.55-1.02 Note change in reference range due to change in reagent. BUN/CREATININE RATIO (test code=BUN/CREA) 15.8 10-20 CALCIUM (test code=CA) 9.0 mg/dL 8.5-10.1 HEPATIC FUNCTION [id number] 20:49:00* Test Item Value Reference Range Comments TOTAL PROTEIN (test code=PROT) 7.5 gram/dL 6.4-8.2 ALBUMIN (test code=ALB) 3.6 g/dL 3.4-5.0 GLOBULIN (test code=GLOB) 3.9 gram/dL 2.7-4.2 ALBUMIN/GLOBULIN RATIO (test code=A/G) 0.9 0.75-1.50 BILIRUBIN TOTAL (test code=BILT) 0.30 mg/dL 0.0-1.0 BILIRUBIN DIRECT (test code=BILD) 0.07 mg/dL 0.0-0.20 SGOT/AST (test code=AST) 46 IUnit/L 15-37 SGPT/ALT (test code=ALT) 59 IUnit/L 12-78 ALKALINE PHOSPHATASE TOTAL (test code=ALKP) 110 IUnit/L 45-117 Note change in reference range due to change in reagent. [id number] 20:49:00* Test Item Value Reference Range Comments LIPASE (test code=LIP) 150 U/L 73.0-393.0 HCG SERUM [id number] 20:49:00* Test Item Value Reference Range Comments HCG SERUM QUAL (test code=HCGQL) NEGATIVE NEGATIVE This HCGQL test is NOT applicable for MALE patients.Check with nurse about probable order error.If Tumor Marker Test needed, nurse should order test "HCGTU"(Test #550.10255) BASIC METABOLIC [id number] 20:46:00* Test Item Value Reference Range Comments SODIUM (test code=NA) 137 mmol/L 136-145 POTASSIUM (test code=K) 4.3 mmol/L 3.5-5.1 CHLORIDE (test code=CL) 106.0 mmol/L 98-107 CARBON DIOXIDE (test code=CO2) 22.0 mmol/L 21-32 ANION GAP (test code=GAP) 13.3 10-20 GLUCOSE (test code=GLU) 86 mg/dL 74-106 BLOOD UREA NITROGEN (test code=BUN) 14 mg/dL 7-18 GLOMERULAR FILTRATION RATE (test code=GFR) > 60 mL/min >=60 Estimated GFR by using Modified MDRD formula.Chronic kidney disease is defined as either kidney damageor GFR <60 mL/min/1.73 m2 for >3 months. CREATININE (test code=CREAT) 0.90 mg/dL 0.55-1.02 Note change in reference range due to change in reagent. BUN/CREATININE RATIO (test code=BUN/CREA) 15.8 10-20 CALCIUM (test code=CA) 9.0 mg/dL 8.5-10.1 HEPATIC FUNCTION [id number] 20:46:00* Test Item Value Reference Range Comments TOTAL PROTEIN (test code=PROT) 7.5 gram/dL 6.4-8.2 ALBUMIN (test code=ALB) 3.6 g/dL 3.4-5.0 GLOBULIN (test code=GLOB) 3.9 gram/dL 2.7-4.2 ALBUMIN/GLOBULIN RATIO (test code=A/G) 0.9 0.75-1.50 BILIRUBIN TOTAL (test code=BILT) 0.30 mg/dL 0.0-1.0 BILIRUBIN DIRECT (test code=BILD) 0.07 mg/dL 0.0-0.20 SGOT/AST (test code=AST) 46 IUnit/L 15-37 SGPT/ALT (test code=ALT) 59 IUnit/L 12-78 ALKALINE PHOSPHATASE TOTAL (test code=ALKP) 110 IUnit/L 45-117 Note change in reference range due to change in reagent. [id number] 20:46:00* Test Item Value Reference Range Comments LIPASE (test code=LIP) 150 U/L 73.0-393.0 HCG SERUM [id number] 20:46:00* Test Item Value Reference Range Comments HCG SERUM QUAL (test code=HCGQL) NEGATIVE BASIC METABOLIC [id number] 20:42:00* Test Item Value Reference Range Comments SODIUM (test code=NA) 137 mmol/L 136-145 POTASSIUM (test code=K) 4.3 mmol/L 3.5-5.1 CHLORIDE (test code=CL) 106.0 mmol/L 98-107 CARBON DIOXIDE (test code=CO2) mmol/L 21-32 ANION GAP (test code=GAP) 10-20 GLUCOSE (test code=GLU) mg/dL 74-106 BLOOD UREA NITROGEN (test code=BUN) mg/dL 7-18 GLOMERULAR FILTRATION RATE (test code=GFR) mL/min >=60 CREATININE (test code=CREAT) mg/dL 0.55-1.02 BUN/CREATININE RATIO (test code=BUN/CREA) 10-20 CALCIUM (test code=CA) mg/dL 8.5-10.1 HEPATIC FUNCTION [id number] 20:42:00* Test Item Value Reference Range Comments TOTAL PROTEIN (test code=PROT) gram/dL 6.4-8.2 ALBUMIN (test code=ALB) g/dL 3.4-5.0 GLOBULIN (test code=GLOB) gram/dL 2.7-4.2 ALBUMIN/GLOBULIN RATIO (test code=A/G) 0.75-1.50 BILIRUBIN TOTAL (test code=BILT) mg/dL 0.0-1.0 BILIRUBIN DIRECT (test code=BILD) mg/dL 0.0-0.20 SGOT/AST (test code=AST) IUnit/L 15-37 SGPT/ALT (test code=ALT) IUnit/L 12-78 ALKALINE PHOSPHATASE TOTAL (test code=ALKP) IUnit/L 45-117 [id number] 20:42:00* Test Item Value Reference Range Comments LIPASE (test code=LIP) U/L 73.0-393.0 HCG SERUM [id number] 20:42:00* Test Item Value Reference Range Comments HCG SERUM QUAL (test code=HCGQL) NEGATIVE - XR CHEST 1 [id number] 20:34:00 FAX: Juan Pablo Rdz DO [phone] [place]: St: PRE FAX: Gay Washburn DO Name: AMBROSIO CHILD [facility] : 1975 Age/S: 42/F [address] [facility] Unit #: [id number] Loc: [place] [address] Phys: Gay Washburn DO Acct: [id number] Dis Date: Status: PRE ER PHONE #: [phone] Exam Date: 04/22/20182029 FAX #: [phone] Reason: chest pain EXAMS: CPT CODE: [id number] XR CHEST 1 V 27983 REASON FOR EXAM: chest pain EXAM ORDER DATE: 04/22/2018 8:11 PM Ordering Andrew: Gay Washburn DO PROCEDURE: - XR CHEST 1 V COMPARISON: FINDINGS: Portable AP frontal view of the chest obtained at 8:28 PM shows clear lungs without evidence of consolidation. There is no evidence of effusion. The heart size is within normal limits. Pulmonary vasculatures are unremarkable. IMPRESSION: No active disease. at 2033 Reported and signed by: López Beatty M.D. CC: Juan Pablo Ballard DO; Gay Washburn DO Technologist: Sai Skinner RT(R) Trnscrd Date/Time/By: 04/22/2018 (2033) : By: RocioL Orig Print D/T: S: 04/22/2018 (2037) PAGE 1 Signed Report CBC W/O [id number] 20:22:00* Test Item Value Reference Range Comments WHITE BLOOD CELL (test code=WBC) 15.2 K/mm3 4.5-12.5 RED BLOOD CELL (test code=RBC) 4.69 mill/mm3 3.7-5.2 HEMOGLOBIN (test code=HGB) 13.4 gram/dL 11.5-15.5 HEMATOCRIT (test code=HCT) 42.2 % 36.0-46.0 MEAN CELL VOLUME (test code=MCV) 90.0 fL 80-98 MEAN CELL HGB (test code=MCH) 28.6 picogram 27.0-33.0 MEAN CELL HGB CONCETRATION (test code=MCHC) 31.8 gram/dL 33.0-36.0 RED CELL DISTRIBUTION WIDTH (test code=RDW) 13.0 % 11.6-16.2 PLATELET COUNT (test code=PLT) 428 K/mm3 150-450 MEAN PLATELET VOLUME (test code=MPV) 10.2 fL 6.7-11.0 CBC W/O [id number] 20:17:00* Test Item Value Reference Range Comments WHITE BLOOD CELL (test code=WBC) K/mm3 4.5-12.5 RED BLOOD CELL (test code=RBC) mill/mm3 3.7-5.2 HEMOGLOBIN (test code=HGB) 13.4 gram/dL 11.5-15.5 HEMATOCRIT (test code=HCT) 42.2 % 36.0-46.0 MEAN CELL VOLUME (test code=MCV) fL 80-98 MEAN CELL HGB (test code=MCH) picogram 27.0-33.0 MEAN CELL HGB CONCETRATION (test code=MCHC) gram/dL 33.0-36.0 RED CELL DISTRIBUTION WIDTH (test code=RDW) % 11.6-16.2 PLATELET COUNT (test code=PLT) K/mm3 150-450 MEAN PLATELET VOLUME (test code=MPV) fL 6.7-11.0 URINALYSIS [id number] 20:17:00* Test Item Value Reference Range Comments UA COLOR (test code=COLU) STRAW YELLOW UA APPEARANCE (test code=APPU) CLEAR CLEAR UA GLUCOSE DIPSTICK (test code=DGLUU) NEGATIVE mg/dL NEGATIVE UA BILIRUBIN DIPSTICK (test code=BILU) NEGATIVE mg/dL NEGATIVE UA KETONE DIPSTICK (test code=KETU) Negative mg/dL NEGATIVE UA SPECIFIC GRAVITY (test code=SGU) 1.011 1.001-1.035 UA BLOOD DIPSTICK (test code=PHOEBE) Negative NEGATIVE UA PH DIPSTICK (test code=ITA) 5.0 5.0-8.0 UA PROTEIN DIPSTICK (test code=PROU) Negative mg/dL NEGATIVE UA UROBILINIOGEN DIPSTICK (test code=URO) NEGATIVE mg/dL NEGATIVE UA NITRITE DIPSTICK (test code=EVARISTO) NEGATIVE NEGATIVE UA LEUKOCYTE ESTERASE W REFLEX (test code=LEUUR) NEGATIVE NEGATIVE UA WBC (test code=WBCU) 0-5 #/HPF 0-5 UA RBC (test code=RBCU) NONE SEEN #/HPF 0-5 UA EPITHELIAL CELLS (test code=EPIU) None seen per HPF FEW UA BACTERIA (test code=BACU) NONE SEEN #/HPF NONE UA MUCUS (test code=MUCU) FEW #/LPF FEW Urine Source? Clean CatchURINALYSIS [id number] 20:12:00* Test Item Value Reference Range Comments UA COLOR (test code=COLU) STRAW YELLOW UA APPEARANCE (test code=APPU) CLEAR CLEAR UA GLUCOSE DIPSTICK (test code=DGLUU) NEGATIVE mg/dL NEGATIVE UA BILIRUBIN DIPSTICK (test code=BILU) NEGATIVE mg/dL NEGATIVE UA KETONE DIPSTICK (test code=KETU) Negative mg/dL NEGATIVE UA SPECIFIC GRAVITY (test code=SGU) 1.011 1.001-1.035 UA BLOOD DIPSTICK (test code=PHOEBE) Negative NEGATIVE UA PH DIPSTICK (test code=ITA) 5.0 5.0-8.0 UA PROTEIN DIPSTICK (test code=PROU) Negative mg/dL NEGATIVE UA UROBILINIOGEN DIPSTICK (test code=URO) NEGATIVE mg/dL NEGATIVE UA NITRITE DIPSTICK (test code=EVARISTO) NEGATIVE NEGATIVE UA LEUKOCYTE ESTERASE W REFLEX (test code=LEUUR) NEGATIVE NEGATIVE UA WBC (test code=WBCU) per HPF 0-5 Urine Source? Clean CatchURINALYSIS [id number] 21:31:00* Test Item Value Reference Range Comments UA COLOR (test code=COLU) LIGHT YELLOW YELLOW UA APPEARANCE (test code=APPU) CLEAR CLEAR UA GLUCOSE DIPSTICK (test code=DGLUU) NEGATIVE mg/dL NEGATIVE UA BILIRUBIN DIPSTICK (test code=BILU) NEGATIVE mg/dL NEGATIVE UA KETONE DIPSTICK (test code=KETU) Negative mg/dL NEGATIVE UA SPECIFIC GRAVITY (test code=SGU) 1.018 1.001-1.035 UA BLOOD DIPSTICK (test code=PHOEBE) Negative NEGATIVE UA PH DIPSTICK (test code=ITA) 8.0 5.0-8.0 UA PROTEIN DIPSTICK (test code=PROU) Negative mg/dL NEGATIVE UA UROBILINIOGEN DIPSTICK (test code=URO) NEGATIVE mg/dL NEGATIVE UA NITRITE DIPSTICK (test code=EVARISTO) NEGATIVE NEGATIVE UA LEUKOCYTE ESTERASE W REFLEX (test code=LEUUR) NEGATIVE NEGATIVE UA WBC (test code=WBCU) 0-5 #/HPF 0-5 UA RBC (test code=RBCU) 0-2 #/HPF 0-5 UA BACTERIA (test code=BACU) FEW #/HPF NONE UA MUCUS (test code=MUCU) FEW #/LPF FEW Urine Source? Clean CatchDRUGS OF ABUSE SCREEN [id number] 21:31:00* Test Item Value Reference Range Comments URN COCAINE (test code=COCAURN) NEGATIVE <300 ng/mL URN CANNABINOIDS (test code=CANNABURN) NEGATIVE <50 ng/mL URN AMPHETAMINE (test code=AMPHETURN) NEGATIVE <1000 ng/mL URN BARBITURATE (test code=BARBITURN) NEGATIVE <200 ng/mL URN BENZODIAZEPINE (test code=BENZOURN) NEGATIVE <200 ng/mL URN OPIATES (test code=OPIATURN) NEGATIVE <300 ng/mL URN PHENCYCLIDINE (PCP) (test code=PHENCURN) NEGATIVE <25 ng/mL URN METHADONE (test code=METHAURN) NEGATIVE <300 ng/mL Urine Source? Clean CatchURINALYSIS [id number] 21:09:00* Test Item Value Reference Range Comments UA COLOR (test code=COLU) LIGHT YELLOW YELLOW UA APPEARANCE (test code=APPU) CLEAR CLEAR UA GLUCOSE DIPSTICK (test code=DGLUU) NEGATIVE mg/dL NEGATIVE UA BILIRUBIN DIPSTICK (test code=BILU) NEGATIVE mg/dL NEGATIVE UA KETONE DIPSTICK (test code=KETU) Negative mg/dL NEGATIVE UA SPECIFIC GRAVITY (test code=SGU) 1.018 1.001-1.035 UA BLOOD DIPSTICK (test code=PHOEBE) Negative NEGATIVE UA PH DIPSTICK (test code=ITA) 8.0 5.0-8.0 UA PROTEIN DIPSTICK (test code=PROU) Negative mg/dL NEGATIVE UA UROBILINIOGEN DIPSTICK (test code=URO) NEGATIVE mg/dL NEGATIVE UA NITRITE DIPSTICK (test code=EVARISTO) NEGATIVE NEGATIVE UA LEUKOCYTE ESTERASE W REFLEX (test code=LEUUR) NEGATIVE NEGATIVE UA WBC (test code=WBCU) 0-5 #/HPF 0-5 UA RBC (test code=RBCU) 0-2 #/HPF 0-5 UA BACTERIA (test code=BACU) FEW #/HPF NONE UA MUCUS (test code=MUCU) FEW #/LPF FEW Urine Source? Clean CatchDRUGS OF ABUSE SCREEN [id number] 21:09:00* Test Item Value Reference Range Comments URN COCAINE (test code=COCAURN) <300 ng/mL URN CANNABINOIDS (test code=CANNABURN) <50 ng/mL URN AMPHETAMINE (test code=AMPHETURN) <1000 ng/mL URN BARBITURATE (test code=BARBITURN) <200 ng/mL URN BENZODIAZEPINE (test code=BENZOURN) <200 ng/mL URN OPIATES (test code=OPIATURN) <300 ng/mL URN PHENCYCLIDINE (PCP) (test code=PHENCURN) <25 ng/mL URN METHADONE (test code=METHAURN) <300 ng/mL Urine Source? Clean Catch- US ABDOMEN [id number] 20:27:00 Name: AMBROSIO CHILD [facility] : 1975 Age/S: 42 / F [address] [facility] Unit #: [id number] Loc: K[place]INA Herrera [address] Phys: RITA ROTIZ MD Acct: [id number] Di s Date: Status: REG ER PHONE #: Exam Date: 03/19/20181955 FAX #: Reason: RUQ pain, vomiting EXAMS: CPT CODE: [id number] US ABDOMEN LTD [id number] REASON FOR EXAM: RUQ pain, vomiting EXAM ORDER DATE: 03/19/2018 7:20 PM Attending Andrew: LOUISE ORTIZ MD PROCEDURE: - US ABDOMEN LTD FINDINGS: The liver is mildly echogenic. There is no evidence of focal mass identified. The pancreas is within normal limits. The right kidney measures 9.6 x 4 cm. There is no evidence of hydronephrosis. There is no evidence of nephrolithiasis. There is no evidence of renal m ass. The gallbladder is partially contracted without evidence of g allstone. The common bile duct measures 0.3 cm There is no evidence of ascites. The aorta and IVC are within normal limits. The gissell l vein is patent with hepatopetal flow IMPRESSION: Fatty liver. No evidence of gallstone. at 2027 Reported and signed by: López Beatty M.D. CC: Juan Pablo Ballard DO; LOUISE ORTIZ MD Obed hnologist: Mallorie Moncada RDMS Trnscb Date/Ti me: 03/19/2018 (2026) Selene Orig Print D/T: S: 2018 (2029) Probe: PAGE 1 Anu d Report [id number] 19:06:00* Test Item Value Reference Range Comments TROPONIN-I (test code=TROPI) <0.015 ng/mL 0-0.045 [id number] 18:49:00* Test Item Value Reference Range Comments LIPASE (test code=LIP) 180 U/L 73.0-393.0 [id number] 18:49:00* Test Item Value Reference Range Comments MAGNESIUM (test code=MAG) 2.2 mg/dL 1.8-2.4 BASIC METABOLIC [id number] 16:44:00* Test Item Value Reference Range Comments SODIUM (test code=NA) 139 mmol/L 136-145 POTASSIUM (test code=K) 3.7 mmol/L 3.5-5.1 CHLORIDE (test code=CL) 107.0 mmol/L 98-107 CARBON DIOXIDE (test code=CO2) 23.0 mmol/L 21-32 ANION GAP (test code=GAP) 12.7 10-20 GLUCOSE (test code=GLU) 95 mg/dL 74-106 BLOOD UREA NITROGEN (test code=BUN) 13 mg/dL 7-18 GLOMERULAR FILTRATION RATE (test code=GFR) > 60 mL/min >=60 Estimated GFR by using Modified MDRD formula.Chronic kidney disease is defined as either kidney damageor GFR <60 mL/min/1.73 m2 for >3 months. CREATININE (test code=CREAT) 0.90 mg/dL 0.55-1.02 Note change in reference range due to change in reagent. BUN/CREATININE RATIO (test code=BUN/CREA) 14.4 10-20 CALCIUM (test code=CA) 8.9 mg/dL 8.5-10.1 HEPATIC FUNCTION [id number] 16:44:00* Test Item Value Reference Range Comments TOTAL PROTEIN (test code=PROT) 7.9 gram/dL 6.4-8.2 ALBUMIN (test code=ALB) 3.8 g/dL 3.4-5.0 GLOBULIN (test code=GLOB) 4.1 gram/dL 2.7-4.2 ALBUMIN/GLOBULIN RATIO (test code=A/G) 0.9 0.75-1.50 BILIRUBIN TOTAL (test code=BILT) 0.40 mg/dL 0.0-1.0 BILIRUBIN DIRECT (test code=BILD) 0.05 mg/dL 0.0-0.20 SGOT/AST (test code=AST) 60 IUnit/L 15-37 SGPT/ALT (test code=ALT) 74 IUnit/L 12-78 ALKALINE PHOSPHATASE TOTAL (test code=ALKP) 105 IUnit/L 45-117 Note change in reference range due to change in reagent. HCG SERUM [id number] 16:44:00* Test Item Value Reference Range Comments HCG SERUM QUAL (test code=HCGQL) NEGATIVE NEGATIVE This HCGQL test is NOT applicable for MALE patients.Check with nurse about probable order error.If Tumor Marker Test needed, nurse should order test "HCGTU"(Test #550.91668) [id number] 16:44:00* Test Item Value Reference Range Comments ACETAMINOPHEN (test code=ACET) < 10 mcg/mL 10-30 A RANGE OF 10-30 mcg/mL IS A THERAPEUTIC RANGE. TOXIC CONCENTRATIONS: >150 mcg/mL AT 4 HOURS AFTER INGESTION >=50 mcg/mL AT 12 HOURS AFTER INGESTION [id number] 16:44:00* Test Item Value Reference Range Comments SALICYLATE (test code=ALBERTO) 1.8 mg/dL 2.8-20.0 [id number] 16:44:00* Test Item Value Reference Range Comments ALCOHOL (test code=ALC) < 3 mg/dL 0.0-3.0 INTERPRETIVE DATA NOTE: POSITIVE SCREENING RESULTS SHOULD BE CONSIDERED PRESUMPTIVE.WHEN COLLECTED FOR MEDICAL PURPOSES ONLY. SPECIMEN WILL NOTBE COLLECTED BY CHAIN OF CUSTODY.IF A CONFIRMATION OF POSITIVE RESULTS IS DESIRED, ACONFIRMATION TEST MUST BE REQUESTED BY THE PHYSICIAN AT ANADDITIONAL CHARGE TO THE PATIENT. BASIC METABOLIC [id number] 16:34:00* Test Item Value Reference Range Comments SODIUM (test code=NA) mmol/L 136-145 POTASSIUM (test code=K) mmol/L 3.5-5.1 CHLORIDE (test code=CL) mmol/L 98-107 CARBON DIOXIDE (test code=CO2) mmol/L 21-32 ANION GAP (test code=GAP) 10-20 GLUCOSE (test code=GLU) mg/dL 74-106 BLOOD UREA NITROGEN (test code=BUN) mg/dL 7-18 GLOMERULAR FILTRATION RATE (test code=GFR) mL/min >=60 CREATININE (test code=CREAT) mg/dL 0.55-1.02 BUN/CREATININE RATIO (test code=BUN/CREA) 10-20 CALCIUM (test code=CA) mg/dL 8.5-10.1 HEPATIC FUNCTION [id number] 16:34:00* Test Item Value Reference Range Comments TOTAL PROTEIN (test code=PROT) gram/dL 6.4-8.2 ALBUMIN (test code=ALB) g/dL 3.4-5.0 GLOBULIN (test code=GLOB) gram/dL 2.7-4.2 ALBUMIN/GLOBULIN RATIO (test code=A/G) 0.75-1.50 BILIRUBIN TOTAL (test code=BILT) mg/dL 0.0-1.0 BILIRUBIN DIRECT (test code=BILD) mg/dL 0.0-0.20 SGOT/AST (test code=AST) IUnit/L 15-37 SGPT/ALT (test code=ALT) IUnit/L 12-78 ALKALINE PHOSPHATASE TOTAL (test code=ALKP) IUnit/L 45-117 HCG SERUM [id number] 16:34:00* Test Item Value Reference Range Comments HCG SERUM QUAL (test code=HCGQL) NEGATIVE NEGATIVE This HCGQL test is NOT applicable for MALE patients.Check with nurse about probable order error.If Tumor Marker Test needed, nurse should order test "HCGTU"(Test #550.07305) [id number] 16:34:00* Test Item Value Reference Range Comments ACETAMINOPHEN (test code=ACET) mcg/mL 10-30 [id number] 16:34:00* Test Item Value Reference Range Comments SALICYLATE (test code=ALBERTO) mg/dL 2.8-20.0 [id number] 16:34:00* Test Item Value Reference Range Comments ALCOHOL (test code=ALC) mg/dL 0-3 BASIC METABOLIC [id number] 16:34:00* Test Item Value Reference Range Comments SODIUM (test code=NA) 139 mmol/L 136-145 POTASSIUM (test code=K) 3.7 mmol/L 3.5-5.1 CHLORIDE (test code=CL) 107.0 mmol/L 98-107 CARBON DIOXIDE (test code=CO2) mmol/L 21-32 ANION GAP (test code=GAP) 10-20 GLUCOSE (test code=GLU) mg/dL 74-106 BLOOD UREA NITROGEN (test code=BUN) mg/dL 7-18 GLOMERULAR FILTRATION RATE (test code=GFR) mL/min >=60 CREATININE (test code=CREAT) mg/dL 0.55-1.02 BUN/CREATININE RATIO (test code=BUN/CREA) 10-20 CALCIUM (test code=CA) mg/dL 8.5-10.1 HEPATIC FUNCTION [id number] 16:34:00* Test Item Value Reference Range Comments TOTAL PROTEIN (test code=PROT) gram/dL 6.4-8.2 ALBUMIN (test code=ALB) g/dL 3.4-5.0 GLOBULIN (test code=GLOB) gram/dL 2.7-4.2 ALBUMIN/GLOBULIN RATIO (test code=A/G) 0.75-1.50 BILIRUBIN TOTAL (test code=BILT) mg/dL 0.0-1.0 BILIRUBIN DIRECT (test code=BILD) mg/dL 0.0-0.20 SGOT/AST (test code=AST) IUnit/L 15-37 SGPT/ALT (test code=ALT) IUnit/L 12-78 ALKALINE PHOSPHATASE TOTAL (test code=ALKP) IUnit/L 45-117 HCG SERUM [id number] 16:34:00* Test Item Value Reference Range Comments HCG SERUM QUAL (test code=HCGQL) NEGATIVE NEGATIVE This HCGQL test is NOT applicable for MALE patients.Check with nurse about probable order error.If Tumor Marker Test needed, nurse should order test "HCGTU"(Test #550.94476) [id number] 16:34:00* Test Item Value Reference Range Comments ACETAMINOPHEN (test code=ACET) mcg/mL 10-30 [id number] 16:34:00* Test Item Value Reference Range Comments SALICYLATE (test code=ALBERTO) mg/dL 2.8-20.0 [id number] 16:34:00* Test Item Value Reference Range Comments ALCOHOL (test code=ALC) mg/dL 0-3 CBC W/O [id number] 16:23:00* Test Item Value Reference Range Comments WHITE BLOOD CELL (test code=WBC) 13.8 K/mm3 4.5-12.5 RED BLOOD CELL (test code=RBC) 5.13 mill/mm3 3.7-5.2 HEMOGLOBIN (test code=HGB) 14.3 gram/dL 11.5-15.5 HEMATOCRIT (test code=HCT) 46.0 % 36.0-46.0 MEAN CELL VOLUME (test code=MCV) 89.7 fL 80-98 MEAN CELL HGB (test code=MCH) 27.9 picogram 27.0-33.0 MEAN CELL HGB CONCETRATION (test code=MCHC) 31.1 gram/dL 33.0-36.0 RED CELL DISTRIBUTION WIDTH (test code=RDW) 12.8 % 11.6-16.2 PLATELET COUNT (test code=PLT) 417 K/mm3 150-450 MEAN PLATELET VOLUME (test code=MPV) 9.9 fL 6.7-11.[address] [facility] [place] [address] Patient Name: AMBROSIO CHILD MR #: [id number] : 1975 Age/Sex: 41/F Req #: [id number] Adm Physician: Ordered by: JUSTIEN ZHANG MD Report #: [id number] Location: NE Room/Bed: Procedure: [id number] NM/HEPTOBILIARY W PHARM Exam Date: 04/11/17 Exam Time: 1500 REPORT STATUS: Signed Hepatobiliary Scan with Gallbladder Ejection Fraction Clinical in formation: Intermittent upper abdominal pain Report: Following intravenous administration of 6.8 millicuries of Tc-99m mebrofenin, dynamic images of the abdomen in the anterior projection were obtained through 46 minutes. Sincalid e (CCK analog) 1.7 micrograms was administered intravenously over 30 minutes w ith additional imaging for determination of gallbladder ejection fraction. Perfusion to the liver is normal. Extraction of tracer from the blood pool by the liver parenchyma is normal. Tracer is seen promptly within the biliary tract. The gallbladder begins to fill by 18 minutes post-injection of tracer. Tracer is seen in the small bowel by 5 minutes. The gallbladder ejection f raction with administration of sincalide is 92% (normal greater than 40%). Impression: 1. Filling of the gallbladder excludes the diagnosis of acute cystic duct obstruction/acute cholecystitis. 2. Normal gallbladder ejection fraction of 92% does not support the clinical diagnosis of chronic cholecyst itis/gallbladder dyskinesia. Signed by: Dr. Milton Plummer M.D. on 04/11/2017 4 :31 PM Dictated By: MILTON PLUMMER MD 1631 Transcribed By: ALAN on 04/11/17 1631 COPY TO: JUSTINE ZHANG MD CT ABDOMEN/PELVIS WO [facility] [address] [address] Patient Name: AMBROSIO CHILD MR #: [id number] : 1975 Age/Sex: 41/F Req #: [id number] Adm Physician: Ordered by: BALLARD ANDREW DO Report #: [id number] Location: CT Room/Bed: Procedure: [id number] CT/CT ABDOMEN/PELVIS WO Exam D ate: 12/19/16 Exam Time: 1730 REPORT STATUS: Si gned PROCEDURE: CT ABDOMEN AND PELVIS WITHOUT CONTRAST TECHNIQUE: Th e abdomen and pelvis were scanned utilizing a multidetector helical scanner f rom the diaphragm to the lesser trochanter after the oral administration of w ater. No IV contrast was administered per protocol. Coronal and sagittal mult iplanar reformations were obtained. COMPARISON: None. INDICATIONS: swelling legs FINDINGS: ABSENCE OF INTRAVENOUS CONTRAST DECREASES SENSITIVITY FOR DETECTION OF FOCAL LESIONS AND VASCULAR PATHOLOGY. LOW ER THORAX: Lung bases are clear. HEPATOBILIARY: Normal hepatic size and co ntour. No focal lesions. No biliary ductal dilation. Gallbladder is unremarka ble. SPLEEN: No splenomegaly. PANCREAS: No focal masses or ductal dilatatio n. ADRENALS: No adrenal nodules. KIDNEYS/URETERS: No renal or ureteral c alculi. No hydronephrosis, hydroureter, or evidence of obstruction. No abnorm al renal contour. PELVIC ORGANS/BLADDER: Bladder is decompressed, but grossly unremarkable. Uterus is unremarkable. No adnexal masses. PERITONEUM / R ETROPERITONEUM: Small amount of free fluid in the pelvic cul-de-sac. LYMPH NODES: No lymphadenopathy. VESSELS: Mild atherosclerotic calcification of the distal abdominal aorta. GI TRACT: No bowel dilation or evidence of obst ruction. No pericolonic inflammatory changes. Surgical sutures in the distal cecum, from prior appendectomy. Stomach is unremarkable. BONES AND SOFT TISSUES: No acute bony abnormalities. Soft tissues are unremarkable. I MPRESSION: 1. no acute abdominopelvic abnormalities. No renal, ureteral, o r bladder calculi. No hydronephrosis or obstruction. 2. Findings discussed with DERICK De Leon, December 19, 2016 at 18 00 hours Rudy Butler M.D. Dictated by: Rudy Butler M.D. on 12/19/2016 at 18:1 1 Electronically approved by: Rudy Butler M.D. on 12/19/2016 at 18:11 Dictated By: RUDY BUTLER MD 10 Transcribed By: TANG on 12/19/161810 COPY TO: JUAN PABLO BALLARD DO
--- OUTSIDE RECORDS SUMMARY | 2018-06-18 10:28 | XMS REPORT | Summary of Care ---
Author Organization Unknown Address Unknown Phone Unavailable Encounter HQ Encntr_marito([facility]) [id number] Date(s): 01/13/14 - 01/13/14 [facility] Outpatient Imaging - [address] [address]- [place] Discharge Disposition: Home Physician Attending: Damon Hurley MD Reason for Visit 578.1 - BLOOD IN STOOL Problem List No data available for this section Allergies, Adverse Reactions, Alerts No data available for this section Medications No data available for this section Medications Administered During Your Visit No data available for this section Immunizations No data available for this section
== END | disposition home or self-care (01) ==
LOC: OR 06:02
PROVIDERS: ATTEND Internal Medicine Gastroenterology
DX: K29.70 Gastritis, unspecified, without bleeding (principal); K63.5 Polyp of colon; K62.1 Rectal polyp; K51.50 Left sided colitis without complications; K29.80 Duodenitis without bleeding; K20.9 Esophagitis, unspecified; K22.8 Other specified diseases of esophagus; K62.89 Other specified diseases of anus and rectum; K64.8 Other hemorrhoids; J45.909 Unspecified asthma, uncomplicated; I10 Essential (primary) hypertension; R07.9 Chest pain, unspecified; N32.89 Other specified disorders of bladder; Z88.0 Allergy status to penicillin; Z88.2 Allergy status to sulfonamides; Z88.6 Allergy status to analgesic agent; Z91.041 Radiographic dye allergy status
CPT/HCPCS: 43239; 45380; 45384; 45385; 81025; 83630; 83993; 87045; 87177; 87328; 87493; J0360; J1980; J2001; J2250; J2405; J2704; J2765; J3490

== ENCOUNTER → 2018-09-27 | Day surgery (SDC) | payer BC ==
[2018-09-24 10:39] LABS: BLOOD UREA NITROGEN 19 mg/dL (7-26); BUN/CREATININE RATIO 22 (6-25); CALCIUM 9.5 mg/dL (8.4-10.2); CARBON DIOXIDE 25 mmol/L (22-29); CHLORIDE 102 mmol/L (98-107); CREATININE, SERUM 0.86 mg/dL (0.57-1.11); EST GLOMERULAR FILTRATION RATE > 60 ML/MIN (60-); GLUCOSE 98 mg/dL (74-118); SODIUM 135 mmol/L (136-145)
[~2018-09-27] MED LIST changes: +ACIPHEX20 MG PO; +ALBUTEROL SULF 0.083% NEB SOLN 3 ML NEB NEB STA; +ALBUTEROL SULF 0.083% NEB SOLN 3 ML NEB ONE; +B&O 60MG R/S 60 MG SUPP PR ONE; +CEFTRIAXONE SOD 1 GM/NS 50 ML 0 ML IV ONE; +CHOLESTYRAMINE PO; +DEXAMETHASONE SOD PHOS INJ 4 MG/ML VIAL ONE; +DEXILANT60 MG PO; +DICYCLOMINE HCL20 MG PO; +FLOMAX0.4 MG PO; -HYDRALAZINE HCL 20 MG/ML VIAL ONE; -HYOSCYAMINE SULFATE 0.5 MG/ML INJ ONE; +KETOROLAC TROMETHAMINE 30 MG/ML VIAL ONE; -LABETALOL HCL 5 MG/ML 20ML VIAL ONE; +LEVOFLOXACIN 500MG/D5W 100ML 100 ML IV ONE; -METOCLOPRAMIDE HCL 10 MG/2ML VIAL ONE; +NITROFURANTOIN100 MG PO; +ONDANSETRON2 MG/1 ML PO; +PROPOFOL IV EMULSION 10 MG/ML 20 ML VIAL ONE; -PROPOFOL IV EMULSION 10 MG/ML 50 ML VIAL ONE; +SEVOFLURANE INHAL SOLN 250 ML PEN BTL ONE; +SUCRALFATE1 GM PO; +TORSEMIDE10 MG PO; +VSL#3 CAPSULE1 EACH PO
--- OUTSIDE RECORDS SUMMARY | 2018-09-27 08:06 | XMS REPORT | Clinical Summary ---
Author Author [facility] Organization [facility] Address Unknown Phone Unavailable Care Team Providers Care Second Grade Teacher Name Role Phone Hank Ballard MD PCP [...] 6 (six) hours as needed for fever. 10/18/2017 ondansetron (ZOFRAN) 4 MG Take 1 tablet 20 tablet 0 tablet (4 mg total) 8 by mouth every 8 (eight) hours as needed for nausea or vomiting for up to 30 days. Active Problems Problem Noted Date Asthma 09/15/2017 Chronic kidney disease 09/15/2017 Overview: Normal GFR at this time Intractable cyclical vomiting with nausea 09/14/2017 Social History Date Tobacco Use Types Packs/Day Years Used Never Smoker Smokeless Tobacco: Never Used Drinks/Week oz/Week Comments Alcohol Use No Sex Assigned at Date Recorded Not on file Industry Job Start Date Occupation Not on file Not on file Not on file Travel End Travel History Travel Start No recent travel history available. 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
--- OUTSIDE RECORDS SUMMARY | 2018-09-27 08:06 | XMS REPORT | Continuity of Care Document ---
Author Author [employer] Organization [employer] Address Unknown Phone Unavailable Care Team Providers Care Administrative Clerk Name Role Phone [employer] Unavailable Unavailable Problems Problem Status Onset Date Classification Date Reported Comments Source [id number] SCLEROSIS Active 05/19/2016 [facility] 786.50 - CHEST PAIN NOS Active 06/19/2013 [facility] Medications No Data Provided for This Section Allergies, Adverse Reactions, Alerts No Known Medication Allergies Immunizations No Data Provided for This Section Results Order Name Results Value Reference Range Date Interpretation Comments Source BODY FLUIDS Color CSF Colorless (05/25/16 9:01 AM) Colorless 05/25/2016 [facility] BODY FLUIDS Clarity CSF Clear (05/25/16 9:01 AM) Clear 05/25/2016 [facility] BODY FLUIDS Supernat CSF Colorless (05/25/16 9:01 AM) Colorless 05/25/2016 [facility] BODY FLUIDS WBC CSF 0 0 - 53 05/25/2016 [facility] BODY FLUIDS RBC CSF 1 0 - 03 05/25/2016 [facility] BODY FLUIDS Tube Num CSF 4 05/25/2016 [facility] BODY FLUIDS Glucose CSF 57 45 - 80 05/25/2016 [facility] BODY FLUIDS Protein CSF 43 15 - 45 05/25/2016 [facility] MYELIN BASIC PROT CSF 1.1 0.0 - 1.2 05/25/2016 Result Comment: Results for this test are for research purposes only by the
assay's diesel retrofit installer. The performance characteristics of
this product have not been established. Results should not
be used as a diagnostic procedure without confirmation of
the diagnosis by another medically established diagnostic
product or procedure.
Performed At: [facility]
[address], [place] [id number]
Jay Fuentes MD Ph:[phone] [facility] IMMUNOLOGY IgG Lvl CSF <35.0 2.0 - 4.0 05/25/2016 [facility] IgG Lvl CSF 2.4 2.0 - 4.0 05/25/2016 [facility] IMMUNOLOGY Alb CSF (CPE) 26.3 14.0 - 25.0 05/25/2016 [facility] IMMUNOLOGY Alb (CPE) 3900.0 05/25/2016 [facility] IMMUNOLOGY IgG (CPE) 751 694 - 1618 05/25/2016 [facility] IMMUNOLOGY IgG Index 0.5 0.3 - 0.7 05/25/2016 [facility] URINE CHEM U Preg Negative (05/25/16 8:18 AM) Negative 05/25/2016 [facility] Pathology Reports No Data Provided for This Section Diagnostic Reports Report Value Date Source Retroperitoneal Complete US EXAM: US RETROPERITONEAL COMPLETE DATE: 01/06/2017 8:27 AM LEVEL VIAL CURVATURE GAUGER INDICATION: - R60.9 Edema, unspecified. Lower back [...] visualized, likely from steatosis (fatty infiltration). 01/06/2017 [facility] Spine lumbar puncture w fluoro DX Patient Name: AMBROSIO CHILD : 1975; Age: 40 years y/o Female MR: [id number] Study: Spine lumbar puncture w fluoro DX [...] None. IMPRESSION: Fluoroscopically guided lumbar puncture. SL: [id number] 05/25/2016 [facility] Small bowel series DX EXAMINATION: Small Bowel Follow-Through HISTORY: Abdominal pain; food intolerance COMPARISON: None. TECHNIQUE: After a librarian helper radiograph was obtained, the patient was given barium to drink and multiple fluoroscopic and conventional overhead radiographs of the stomach, duodenum, and small bowel were obtained. FINDINGS: Dianetic Counselor radiograph demonstrates a normal bowel gas pattern [...] Otherwise, unremarkable small bowel follow-through examination. 01/13/2014 [facility] Chest 2 views CHEST RADIOGRAPHY CLINICAL HISTORY: Chest pain. COMPARISON IMAGING: None. FINDINGS: Two views of the chest were acquired and submitted for evaluation. No pleural fluid is identified. The contour of the cardiac silhouette is within normal limits. There is no significant pulmonary consolidation or nodularity. Bones are unremarkable. IMPRESSION: No significant abnormality. 06/19/2013 [facility] Consultation Notes No Data Provided for This Section Discharge Summaries No Data Provided for This Section History and Physicals No Data Provided for This Section Vital Signs No Data Provided for This Section Encounters Location Location Details Encounter Type Encounter Number Reason For Visit Attending Provider ADM Date DC Date Status Source [facility] [place] [facility] [id number] Brian Nowak 06/19/2013 06/20/2013 [facility] [place] [facility] [id number] Damon Hurley 01/13/2014 01/14/2014 [facility] Out[facility] [id number] Frankie Rgean 05/25/2016 05/26/2016 [facility] [place] [facility] [id number] Brennan Whitaker 01/06/2017 01/07/2017 [facility] Procedures No Data Provided for This Section Assessment and Plan No Data Provided for This Section Plan of Care No Data Provided for This Section Social History Social History Date Source No data available for this section 01/07/2017 [facility] No data available for this section 05/26/2016 [facility] Family History No Data Provided for This Section Advance Directives No Data Provided for This Section Functional Status No Data Provided for This Section
[2018-09-27 12:45] VITALS: BP 137/80
--- NOTE | 2018-09-29 23:44 | Operative Report ---
DATE OF PROCEDURE: 09/27/2018 SURGEON: Joshua Guerra MD PREOPERATIVE DIAGNOSIS: Painful bladder. POSTOPERATIVE DIAGNOSIS: Painful bladder. OPERATIVE PROCEDURE: 1. Cystoscopy. 2. Hydrodistention. ANESTHESIA: General. ESTIMATED BLOOD LOSS: Minimal. INDICATIONS: Ms. Grace Holm is a 43-year-old woman with a history of frequency, urgency, and painful bladder. She now presents for potential diagnosis of this problem. DESCRIPTION OF PROCEDURE: The patient was brought into the operating room, placed in supine position, and after administration of general anesthesia, was placed in dorsal lithotomy position and prepped and draped in usual sterile fashion. Cystourethroscopy was performed using 21-Frisian cystoscope. The anterior and posterior urethra were noted to be normal. The bladder was entered without difficulty. Upon entrance into the bladder, the ureteral orifices were in normal anatomical position and produced clear efflux. There was mild trigonitis noted in the trigone, but other than that, there were no mucosal lesions identified. The bladder mucosa was normal and the bladder wall was noted to be relatively smooth. The bladder capacity was at least 700 mL. Filling and emptying of the bladder revealed no glomerulations and no Hunner ulcers. After the bladder was noted to fill passively, extra 150-200 mL of fluid were forcibly infused in the bladder in an attempt to do hydrodistention. This did not result in any significant bleeding. The bladder was then emptied and the patient was returned to the supine position. Anesthesia was reversed. The patient was transferred to a bed and taken to the Postanesthesia Care Unit in good condition. Of note, the needle and instrument counts were correct at the conclusion of the case. Joshua Guerra MD HLW/MODL /[id number]
== END | disposition home or self-care (01) ==
LOC: OR 08:00
PROVIDERS: ATTEND Urology
DX: N30.30 Trigonitis without hematuria (principal); I10 Essential (primary) hypertension; J45.909 Unspecified asthma, uncomplicated; Z88.6 Allergy status to analgesic agent; Z88.0 Allergy status to penicillin; Z91.048 Other nonmedicinal substance allergy status; Z01.810 Encounter for preprocedural cardiovascular examination; Z01.812 Encounter for preprocedural laboratory examination; Z68.36 Body mass index [BMI] 36.0-36.9, adult
CPT/HCPCS: 36415; 52000; 80048; 81025; 93005; J1100; J1885; J1956; J2001; J2250; J2405; J2704; J3010; J0696

== ENCOUNTER → 2018-11-19 | Outpatient (CLI) | payer BC ==
[~2018-11-19] MED LIST changes: -ALBUTEROL SULF 0.083% NEB SOLN 3 ML NEB NEB STA; -ALBUTEROL SULF 0.083% NEB SOLN 3 ML NEB ONE; -B&O 60MG R/S 60 MG SUPP PR ONE; -CEFTRIAXONE SOD 1 GM/NS 50 ML 0 ML IV ONE; -DEXAMETHASONE SOD PHOS INJ 4 MG/ML VIAL ONE; -FENTANYL CITRATE/PF 100MCG/2 ML INJ ONE; +IOPAMIDOL 370 MG/ML 200 ML INFUS..BTL INJ ONE; -KETOROLAC TROMETHAMINE 30 MG/ML VIAL ONE; -LEVOFLOXACIN 500MG/D5W 100ML 100 ML IV ONE; -LIDOCAINE HCL 2% LOCAL INJ 5 ML SDV VIAL INJ ONE; -MIDAZOLAM HCL 2 MG/2 ML VIAL ONE; -ONDANSETRON HCL INJ 2MG/ML 2ML 2 MG/ML VIAL ONE; -PROPOFOL IV EMULSION 10 MG/ML 20 ML VIAL ONE; -SEVOFLURANE INHAL SOLN 250 ML PEN BTL ONE; +SODIUM CHLORIDE 0.9% 50ML 50 ML ONE
[2018-11-19 10:16] LABS: BLOOD UREA NITROGEN 18 mg/dL (7-26); BUN/CREATININE RATIO 19 (6-25); CREATININE, SERUM 0.94 mg/dL (0.57-1.11); EST GLOMERULAR FILTRATION RATE > 60 ML/MIN (60-)
--- NOTE | 2018-11-19 17:18 | Diagnostic Imaging Report ---
CT of the abdomen and pelvis, with runoff, 11/19/2018. History: Lower extremity swelling. Comparison: CT abdomen 06/06/2018. Technique: Multidetector CT scanning of the abdomen and pelvis was performed from the level of the lung bases to the inferior pubic rami after intravenous administration of contrast. Coronal and sagittal multiplanar reformations were obtained. RADIATION DOSE: Total DLP: 1939 mGy*cm Dose modulation, iterative reconstruction, and/or weight based adjustment of the mA/kV was utilized to reduce the radiation dose to as low as reasonably achievable. Discussion: LUNG BASES: No visualized abnormalities. ABDOMEN: Liver is enlarged measuring over 17 cm in length. There is diffuse low-density of the liver. Cholecystectomy clips are present. The biliary tree, spleen, pancreas, adrenal glands, and kidneys are normal. The hepatic vein, portal vein, and splenic vein are patent. The abdominal aorta is within normal limits for size. Evaluation bowel is limited without oral contrast. Appendectomy clips are present. There is no bowel dilatation. There is no evidence of adenopathy or free fluid. No evidence of retroperitoneal mass causing IVC compression. PELVIS: The bladder, uterus, adnexa are normal in appearance. There is a small amount of free fluid, likely physiologic. Lower extremity runoff: Arterial system including the aorta, common iliac arteries, external iliac arteries, common femoral arteries, superficial femoral arteries, popliteal arteries, and trifurcation vessels are patent bilaterally. Venous system is patent, including IVC, bilateral common iliac veins, external iliac veins, internal iliac veins, common femoral vein, superficial femoral vein, and popliteal veins bilaterally. Calf veins also enhance normally and are patent. BONES AND SOFT TISSUES: No abnormality. IMPRESSION: 1. Hepatomegaly with diffuse fatty infiltration of the liver. 2. Status post cholecystectomy. Otherwise unremarkable CT of the abdomen and pelvis. 3. Normal bilateral runoff. Patent lower extremity arterial and venous systems bilaterally. Patent central veins. Signed by: Curtis Baca on 11/19/2018 5:15 PM
== END ==
LOC: CT 09:07
PROVIDERS: ATTEND Internal Medicine Cardiovascular Disease
DX: I87.2 Venous insufficiency (chronic) (peripheral) (principal); R22.43 Localized swelling, mass and lump, lower limb, bilateral
CPT/HCPCS: 36415; 75635; 81025; 82565; 84520; Q9967

== ENCOUNTER → 2019-06-26 | Day surgery (SDC) | payer BC, OTHER ==
[2019-06-21 13:36] LABS: BASOPHILS # (AUTO) 0.1 (0.0-0.1); BASOPHILS % 0.4 % (0.0-1.0); EOSINOPHILS # (AUTO) 0.1 (0.0-0.4); EOSINOPHILS % 1.2 % (0.0-6.0); HEMATOCRIT 41.2 % (34.2-44.1); HEMOGLOBIN 12.9 g/dL (12.0-16.0); LYMPHOCYTES # (AUTO) 2.1 (1.0-3.2); MEAN CORPUSCULAR HEMOGLOBIN 27.4 pg (28-32); MEAN CORPUSCULAR HGB CONC 31.3 g/dL (31-35); MEAN CORPUSCULAR VOLUME 87.7 fL (81-99); MONOCYTES # (AUTO) 0.7 (0.2-0.8); NEUTROPHILS # (AUTO) 8.2 (2.1-6.9); PLATELET COUNT 410 x10e3/uL (140-360); RED CELL DISTRIBUTION WIDTH 13.5 % (11.7-14.4)
[~2019-06-26] MED LIST changes: +AZELASTINE HCL6 ML NS; +BROMIDE PO; +CEFDINIR300 MG PO; +CETIRIZINE HCL10 MG PO; +COLESTIPOL HCL1 GM PO; +FENTANYL CITRATE/PF 100MCG/2 ML INJ ONE; +FUROSEMIDE20 MG PO; -IOPAMIDOL 370 MG/ML 200 ML INFUS..BTL INJ ONE; +LIDOCAINE HCL 2% LOCAL INJ 5 ML SDV VIAL INJ ONE; +METOCLOPRAMIDE HCL 10 MG/2ML VIAL ONE; +METOLAZONE5 MG PO; +MIDAZOLAM HCL 2 MG/2 ML VIAL ONE; +MONTELUKAST SOD10 MG PO; +ONDANSETRON HCL INJ 2MG/ML 2ML 2 MG/ML VIAL ONE; +PANTOPRAZOLE 40 MG 10ML VIAL ONE; +PLAVIX75 MG PO; +PROPOFOL IV EMULSION 10 MG/ML 20 ML VIAL ONE; +PYRIDOSTIGMINE60 MG PO; -SODIUM CHLORIDE 0.9% 50ML 50 ML ONE; +SYMBICORT 16010.2 GM INH; +URECHOLINE50 MG PO; +ZOFRAN4 MG PO
--- OUTSIDE RECORDS SUMMARY | 2019-06-26 06:05 | XMS REPORT | Continuity of Care Document ---
Author Author [facility] AMBROSIO Cancino Organization [facility] Address Unknown Phone Unavailable Care Team Providers Care Head Waiter/Waitress Banquet Name Role Phone [employer] Unavailable Un available Problems Problem Status Onset Date Classification Date Reported Comments Source G35 = MULTIPLE SCLEROSIS Active 05/19/2016 [place] [address]23.50 - CHEST PAIN NOS Active 06/19/2013 [facility] [place] Medications No Data Provided for This Section Allergies, Adverse Reactions, Alerts No Known Medication Allergies Immunizations No Data Provided for This Section Results Order Name Results Value Reference Range Date Interpretation Comments Source BODY FLUIDS Color CSF Rosser rless (05/25/16 9:01 AM) Colorless 05/25/2016 [facility] BODY FLUIDS Clarity CSF Magy r (05/25/16 9:01 AM) Clear 05/25/2016 [facility] BODY FLUIDS Supernat CSF Rosser rless (05/25/16 9:01 AM) Colorless 05/25/2016 [facility] BODY FLUIDS WBC CSF 0 0 - 53 05/25/2016 [facility] BODY FLUIDS RBC CSF 1 0 - 03 05/25/2016 [facility] FLUIDS Tube Num CSF 4 05/25/2016 [facility] BODY FLUIDS Glucose CSF 57 45 - 80 05/25/2016 [facility] BODY FLUIDS Protein CSF 43 15 - 45 05/25/2016 [facility] MYELIN BASIC PROT CSF 1.1 0.0 - 1.2 05/25/2016 Result Comment: Results for this test ar e for research purposes only by the
assay's coil cleaner. The performance characteristics of
this product have not been established. Results should not
be used as a diagnostic procedure without confirmation of
the diagnosis by another medically established diagnostic
product or procedure.
Performed At: [facility]
[address], [place] [id number]
Jay Fuentes MD Ph:[phone] [facility] IgG Lvl CSF <35.0 2.0 - 4.0 05/25/2016 [facility] IgG Lvl CSF 2.4 2.0 - 4.0 05/25/2016 [facility] Alb CSF (CPE) 26.3 14.0 - 25.0 05/25/2016 [facility] IMMUNOLOGY Alb (CPE) 3900.0 05/25/2016 [facility] IMMUNOLOGY IgG (CPE) [id number] - 1618 05/25/2016 [facility] IgG Index 0.5 0.3 - 0.7 05/25/2016 [facility] URINE CHEM U Preg Negat maribel (05/25/16 8:18 AM) Negative 05/25/2016 [facility] Pathology Reports No Data Provided for This Section Diagnostic Reports Report Value Date Source Retroperitoneal Complete US EX AM: US RETROPERITONEAL COMPLETE DATE: 01/06/2017 8:27 AM LAW INSTRUCTOR INDICATION: - R60.9 Edema, unspecified. Lower back [...] IMPRESSION: 1. 7 mm nonobstructive inferior pole lef t renal calculus. 2. No abnormalities of the right kidney are seen. 3. Moderate postvoid residual in the uri nary bladder of approximately 45 cc. 4. The liver displays a nonspecific diff use increased echogenicity were visualized, likely from steatosis (fatty infiltration). 01/06/2017 [facility] Spine lumbar puncture w fluoro DX Patient Name: AMBROSIO CHILD : 1975; Age: 40 years y/o Female MR: [id number] Study: Spine lumbar puncture w fluoro DX [...] None. IMPRESSION: Fluoroscopically guided lumbar puncture. SL: [id number] 05/25/2016 [facility] Small bowel series DX EXAMINAT ION: Small Bowel Follow-Through HISTORY: Abdominal pain; food intolerance COMPARISON: None. TECHNIQUE: After a traveling freight agent radiograph was obtained, the patient was given barium to drink and multiple fluoroscopic and conventional overhead radiographs of the stomach, duodenum, and small bowel were obtained. FINDINGS: Wrapper Hands Sprayer radiograph demonstrates a normal bowel gas pattern [...] IMPRESSION: 1. Rapid transit time with contrast appe aring within the colon at less than 20 minutes. 2. Otherwise, unremarkable small bowel f ollow-through examination. 01/13/2014 [facility] [place] Chest 2 views CHEST RADIOGRAPH Y CLINICAL HISTORY: Chest pain. COMPARISON IMAGING: None. FINDINGS: Two views of the chest were acquired and submitted for evaluation. No pleural fluid is identified. The contour of the cardiac silhouette is within normal limits. There is no significant pulmonary consolidation or nodularity. Bones are unremarkable. IMPRESSION: No significant abnormality. 06/19/2013 [facility] [place] Consultation Notes No Data Provided for This Section Discharge Summaries No Data Provided for This Section History and Physicals No Data Provided for This Section Vital Signs No Data Provided for This Section Encounters Location Location Details Encounter Type Encounter Number Reason For Visit Attending Provider ADM Date DC Date Status Source [facility] [place] [facility] [id number] Brian Eliu 06/19/2013 06/20/2013 [facility] [place] [facility] [place] [facility] [id number] Damon Xavi 01/13/2014 01/14/2014 [facility] [place] [facility] Outpatient [id number] Frankie Regan 05/25/2016 05/26/[address] [facility] [place] [facility] [id number] Brennan Julianne 01/06/2017 01/07/[address] [facility] [address] [place] Procedures No Data Provided for This Section Assessment and Plan No Data Provided for This Section Plan of Care No Data Provided for This Section Social History Social History Date Source No data available for this section 01/07/[address] [facility] [address] [place] No data available for this section 05/26/2016 [facility] Family History No Data Provided for This Section Advance Directives No Data Provided for This Section Functional Status No Data Provided for This Section
--- OUTSIDE RECORDS SUMMARY | 2019-06-26 06:05 | XMS REPORT | Clinical Summary ---
Author Author [facility] Address Unknown Phone Unavailable Care Team Providers Care Oracle Applications Analyst Name Role Phone Hank Ballard MD PCP [...] 6 (six) hours as needed for fever. Active Problems Problem Noted Date Asthma 09/15/2017 [...] Comments CERVICAL CANCER SCREENING 1998 INFLUENZA VACCINE 09/07/2019 Results Not on fileafter 06/25/2018 Insurance Type Payer Benefit Subscriber ID Effective Phone Address Plan / Dates Group PPO BCBS BCBS OUT xxxxxxxxxxxx 2016-P OF STATE resent Advance Directives For more information, please contact: [phone] Patient Outpatient Coding Specialist Explanation Type Date Recorded Advance Directives, 09/14/2017 2:43 PM Living Will and Medical Power of Bioinformatics Assistant
--- OUTSIDE RECORDS SUMMARY | 2019-06-26 06:06 | XMS REPORT ---
Author Author [facility] t Organization [facility] Address [address] [place] [address] Phone Unavailable Care Team Providers Care Early Interventionist Name Role Phone Jani Ballard MD PCP JUSTINE ZHANG Attphys Unavailable Shae BALLARD Attphys Unavailable Hudson Whitaker Attphys JUAN PABLO BALLARD Attphys Unavailable Nathaniel Regan Attphys Damon Hurley Attphys Brian Nowak Attphys Payers Payer Name Policy Type Policy Number Effective Date Expiration Date S ource Problems Condition Name Condition Details Condition Category Status Onset Date Resolution Date Last Treatment Date Treating Clinician Comments Source Asthma Asthma Disease Active 2017-09-15 00:00:00 Orlando Luke Chronic kidney disease Chronic kidney disease Disease Active 2017-09-15 00:00:00 Overview: Normal GFR at this time Orlando Luke Intractable cyclical vomiting with nausea Intractable cyclical vomiting with nausea Disease Active 2017-09-14 00:00:00 Carl Luke Allergies, Adverse Reactions, Alerts Allergy Name Allergy Type Status Severity Reaction(s) Onset Date Inacti ve Date Treating Clinician Comments Source codeine DA Active SV 2018-04-24 00:00:00 [facility] Iodinated Contrast Media DA Active SV 2018-03-19 00:00:00 [facility] Penicillins DA Active U 2018-03-19 00:00:00 [facility] Sulfa (Sulfonamide Antibiotics) DA Active U 2018-03-19 00 :00:00 [facility] aspirin DA Active U 2018-03-19 00:00:00 [facility] fish oil FA Active U 2018-03-19 00:00:00 [facility] fish oil DA Active U 2018-03-19 00:00:00 [facility] Codeine Propensity to adverse reactions to drug Active 2017-09-14 00:00:00 Orlando Luke Fish Oil Propensity to adverse reactions to drug Active 2017-09-14 00:00:00 Orlando Luke Penicillins Propensity to adverse reactions to drug Active 2017-09-14 00:00:00 Orlando salgado Sulfa (Sulfonamide Antibiotics) Propensity to adverse reactions to drug Active 2017-09-14 00:00:00 Nehemias Luke Iodinated Contrast- Oral and IV Dye DA Active SV 2016-12-08 4 00:00:00 [facility] Penicillins DA Active U 2016-12-30 00:00:00 [facility] Sulfa (Sulfonamide Antibiotics) DA Active U 2016-12-30 00 :00:00 [facility] aspirin DA Active U 2016-12-30 00:00:00 [facility] fish oil DA Active U 2016-12-30 00:00:00 [facility] Social History Social Habit Start Date Stop Date Quantity Comments Source Sex Assigned At Gracie henrytravon Luke Alcohol intake 2017-09-14 00:00:00 2017-09-14 00:00:00 Current non-drinker of alcohol (finding) Orlando Luke Smoking Status Start Date Stop Date Source Never smoker Orlando salgado Medications Ordered Medication Name Filled Medication Name Start Date Stop Da te Current Medication? Ordering Clinician Indication Dosage Frequency Signature (SIG) Comments Components Source hydroCHLOROthiazide (HYDRODIURIL) 12.5 MG tablet 2017-09-19 01:48:12 Yes 12.5mg QD Take 12.5 mg by mouth daily. Orlando Luke ergocalciferol (VITAMIN D2) 50,000 unit capsule 2017-09-19 01:48 :12 Yes [id number] Q7D Take 50,000 Units by mouth once a week. Orlando Luke potassium gluconate 595 mg (99 mg) tablet 2017-09-19 01:48:12 Yes 1{tbl} Take 1 tablet by mouth daily. Orlando Luke albuterol (ACCUNEB) 0.63 mg/3 mL nebulizer solution 09-19 01:48:12 Yes 1{ampule} Q6H Take 1 ampule by nebulization every 6 (six) hours as needed for wheezing. Orlando Luke acetaminophen (TYLENOL) 325 MG tablet 2017-09-19 01:48:12 Y es 325mg Q6H Take 325 mg by mouth every 6 (six) hours as needed for fever. Orlando Luke PROAIR HFA 90 mcg/actuation inhaler 2017-08-16 00:00:00 Yes 2{puff} Q4H Inhale 2 puffs every 4 (four) hours as needed. May take every 4-6 hrs Orlando Luke Procedures This patient has no known procedures. Plan of Care Planned Activity Planned Date Details Comments Source Future Scheduled Test 2019-09-07 00:00:00 INFLUENZA VACCINE [code = INFLUENZA VACCINE] Orlando Luke Future Scheduled Test 1998 00:00:00 Screening for josé antonio gnant neoplasm of cervix (procedure) [code = 754603718] Orlando Caraballo t Encounters Start Date/Time End Date/Time Encounter Type Admission Type Attendi [facility] Care Department Encounter ID Source 2017-01-06 07:57:00 2017-01-06 23:59:00 [id number] Outpatient [facility] 2016-05-25 07:24:00 2016-05-25 23:59:00 Outpatient Frankie Regan [facility] [id number] [facility] 2014-01-13 10:38:00 2014-01-13 23:59:00 Outpatient Whit Hurley [facility] [id number] 2013-06-19 15:47:00 2013-06-19 23:59:00 Outpatient Brian Palomo [facility] MHIEALT [id number] Results Test Description Test Time Test Comments Results Result Comments Source [id number] 2019-05-07 09:38:00 Test Item [id number] (test code = [id number]) [facility] this [facility] is for TRACKING purposes only and the testwas done outside [facility], the performing entity isfound in specimen comments. [id number] 12:43:00* Test Item Value Reference Range Interpretation Comments [id number] (test code = [id number]) Negative Negative Note: this entry is for TRACKING purposes only and the testwas done outside [facility], the performing entity isfound in specimen comments. Novel Coronavirus [id number] 22:43:00* Test Item Value Reference Range Interpretation Comments Novel Coronavirus 2018 nCoV (test code = COVID19) NEGATIVE NOT DETECT. Testing Criteria: Fever & Resp S/S w/AdmitCARDIAC ENZYMES [id number] 13:20:00* Test Item Value Reference Range Interpretation Comments CREATINE KINASE (CK) (test code = CK) 91 Units/L 26-192 N TROPONIN-I (test code = TROPI) <0.02 NG/ML 0.00-0.06 N REFERENCE RANGE TROPONIN I HEALTHY INDIVIDUALS: <0.06 ng/mL R/O ISCHEMIA: 0.07 - 0.60 ng/mL CUT-OFF RANGE FOR AMI: 0.60 - 1.5 ng/mL - XR CHEST 1 [id number] 08:15:00 FAX: Merlene Araya MD [phone] [place]: St: ADM FAX: Joyce Ladd [phone] Name: AMBROSIO CHILD [facility] : 1975 Age/S: 43/F [address] [facility] Unit #: [id number] Loc: E.338 [place], [place] Phys: [place] [address] Acct: [id number] Dis Date: Status: ADM IN PHONE #: [phone] Exam Date: 05/03/2019811 FAX #: [phone] Reason: ADMISSION SOB EXAMS: CPT CODE: [id number] XR CHEST 1 V [id number] EXAM: - XR CHEST 1 V LOCATION: C3 HISTORY: ADMISSION SOB COMPARISON: 05/02/2019 FINDINGS: Single view of the chest. No indwelling lines or tubes. No pneumothorax. The lungs are clear without significant effusions. The mediastinal contours are unremarkable/unchanged. No acute osseous findings are present. IMPRESSION: No acute cardiopulmonary abnormality. at 0815 Reported and signed by: Cristino Broussard M.D. CC: Merlene Araya MD; Jenise Ricardo MD Technologist: ANTONIO CORONEL Trnscrd Date/Time/By: 05/03/2019 (0815) : By: [email or web address] PAGE 1 Signed Report FAX: Merlene Araya MD [phone] [place]: St: [facility] FAX: Joyce Ladd ----- Name: AMBROSIO CHILD [facility] : 1975 Age/S: 43/F [address] Unit #: [id number] Loc: E.338 [place], [place]: [place] [address] Acct: [id number] Dis Date: Status: ADM IN PHONE #: [phone] Exam Date: 05/03/2019811 FAX #: [phone] Reason: ADMISSION SOB EXAM S: CPT CODE: [id number] XR EDA ST 1 V 24847 <Continued> Orig Print D/T: S: 05/03/2019 (4379) PAGE 2 Signed Report CARDIAC ENZYMES [id number] 07:05:00* Test Item Value Reference Range Interpretation Comments CREATINE KINASE (CK) (test code = CK) 97 Units/L 26-192 N TROPONIN-I (test code = TROPI) <0.02 NG/ML 0.00-0.06 N REFERENCE RANGE TROPONIN I HEALTHY INDIVIDUALS: <0.06 ng/mL R/O ISCHEMIA: 0.07 - 0.60 ng/mL CUT-OFF RANGE FOR AMI: 0.60 - 1.5 ng/mL URINALYSIS [id number] 06:49:00* Test Item Value Reference Range Interpretation Comments UA COLOR (test code = COLU) YELLOW UA APPEARANCE (test code = APPU) CLEAR UA GLUCOSE DIPSTICK (test code = DGLUU) 250 mg/dl NORMAL UA BILIRUBIN DIPSTICK (test code = BILU) NEGATIVE mg/dL NEGATIVE UA KETONE DIPSTICK (test code = KETU) 5 mg/dl mg/dl NEGATIVE A UA SPECIFIC GRAVITY (test code = SGU) 1.015 1.000-1.030 UA BLOOD DIPSTICK (test code = PHOEBE) NEGATIVE Toby/micL NEGATIVE UA PH DIPSTICK (test code = ITA) 6.0 5.0-9.0 UA PROTEIN DIPSTICK (test code = PROU) NEGATIVE mg/dl NEGATIVE UA UROBILINIOGEN DIPSTICK (test code = URO) NORMAL mg/dl NORMAL UA NITRITE DIPSTICK (test code = EVARISTO) NEGATIVE NEGATIVE UA LEUKOCYTE ESTERASE DIPSTICK (test code = LEUU) NEGATIVE Simone/micL NEGATIVE UA WBC (test code = WBCU) 0-3 WBC/HPF NONE UA RBC (test code = RBCU) 1-3 RBC/HPF 0-3 UA EPITHELIAL CELLS (test code = EPIU) 2-5 EPI/HPF 0-3 A UA BACTERIA (test code = BACU) FEW NONE UA YEAST (test code = YEASTU) MANY NEGATIVE URINALYSIS [id number] 06:44:00* Test Item Value Reference Range Interpretation Comments UA COLOR (test code = COLU) YELLOW UA APPEARANCE (test code = APPU) CLEAR UA GLUCOSE DIPSTICK (test code = DGLUU) 250 mg/dl NORMAL UA BILIRUBIN DIPSTICK (test code = BILU) NEGATIVE mg/dL NEGATIVE UA KETONE DIPSTICK (test code = KETU) 5 mg/dl mg/dl NEGATIVE A UA SPECIFIC GRAVITY (test code = SGU) 1.015 1.000-1.030 UA BLOOD DIPSTICK (test code = PHOEBE) NEGATIVE Toby/micL NEGATIVE UA PH DIPSTICK (test code = ITA) 6.0 5.0-9.0 UA PROTEIN DIPSTICK (test code = PROU) NEGATIVE mg/dl NEGATIVE UA UROBILINIOGEN DIPSTICK (test code = URO) NORMAL mg/dl NORMAL UA NITRITE DIPSTICK (test code = EVARISTO) NEGATIVE NEGATIVE UA LEUKOCYTE ESTERASE DIPSTICK (test code = LEUU) NEGATIVE Simone/micL NEGATIVE UA WBC (test code = WBCU) WBC/HPF NONE UA RBC (test code = RBCU) RBC/HPF 0-3 UA EPITHELIAL CELLS (test code = EPIU) EPI/HPF 0-3 UA BACTERIA (test code = BACU) NONE CBC W/AUTO [id number] 03:11:00* Test Item Value Reference Range Interpretation Comments WHITE BLOOD CELL (test code = WBC) 12.7 K/mm3 4.5-11.0 H RED BLOOD CELL (test code = RBC) 4.63 M/mm3 3.80-5.20 N HEMOGLOBIN (test code = HGB) 12.7 gm/dL 12.0-16.0 N HEMATOCRIT (test code = HCT) 40.6 % 36.0-48.0 N MEAN CELL VOLUME (test code = MCV) 87.7 UM3 82.0-99.0 N MEAN CELL HGB (test code = MCH) 27.4 UUG 25.5-32.5 N MEAN CELL HGB CONCETRATION (test code = MCHC) 31.3 gm/dL 29.0-35. 5 N RED CELL DISTRIBUTION WIDTH (test code = RDW) 13.0 % 11.5-15. 0 N RED CELL DISTRIBUTION WIDTH SD (test code = RDW-SD) 41.2 fL 34 .8-50.2 N PLATELET COUNT (test code = PLT) 421 K/mm3 150-400 H MEAN PLATELET VOLUME (test code = MPV) 9.9 fl 7.4-10.4 N NEUTROPHIL % (test code = NT%) 90.9 % 49.0-76.0 H IMMATURE GRANULOCYTE % (test code = IG%) 0.4 % 0.0-0.4 N LYMPHOCYTE % (test code = LY%) 8.0 % 23.0-38.0 L MONOCYTE % (test code = MO%) 0.6 % 1.0-10.0 L EOSINOPHIL % (test code = EO%) 0.0 % 1.0-5.0 L BASOPHIL % (test code = BA%) 0.1 % 0.0-1.0 N NEUTROPHIL # (test code = NT#) 11.6 K/mm3 2.4-6.3 H IMMATURE GRANULOCYTE # (test code = IG#) 0.05 x10 3/uL 0.00-0.07 N LYMPHOCYTE # (test code = LY#) 1.0 K/mm3 1.2-4.0 L MONOCYTE # (test code = MO#) 0.1 K/mm3 0.0-0.6 N EOSINOPHIL # (test code = EO#) 0.0 K/MM3 0.0-0.7 N BASOPHIL # (test code = BA#) 0.0 K/mm3 0.0-0.2 N MORPHOLOGY COMMENT (test code = MOC) NM PLATELET ESTIMATE (test code = PLTEST) INCREASED COMPREHENSIVE METABOLIC [id number] 02:10:00* Test Item Value Reference Range Interpretation Comments SODIUM (test code = NA) 139 mmol/l 134.0-147.0 N POTASSIUM (test code = K) 3.0 mmol/L 3.6-5.2 L CHLORIDE (test code = CL) 100 mmol/l 98.0-107.0 N CARBON DIOXIDE (test code = CO2) 27.9 mmol/l 21.0-33.0 N ANION GAP (test code = GAP) 14.1 0-20 N GLUCOSE (test code = GLU) 173 mg/dl 70.0-110.0 H BLOOD UREA NITROGEN (test code = BUN) 13 mg/dl 7.0-18.0 N CREATININE (test code = CREAT) 0.92 mg/dL 0.60-1.30 N GFR NON BLACK (test code = GFRNONBLACK) 71 mL/min 95-105 L GFR BLACK (test code = GFRBLACK) 86 mL/min 115-127 L TOTAL PROTEIN (test code = PROT) 7.2 gm/dL 6.4-8.2 N ALBUMIN (test code = ALB) 3.3 gm/dl 3.2-4.7 N CALCIUM (test code = CA) 8.6 mg/dl 8.0-10.5 N BILIRUBIN TOTAL (test code = BILT) 0.5 mg/dl 0.0-1.0 N SGOT/AST (test code = AST) 52 Units/L 15.0-37.0 H SGPT/ALT (test code = ALT) 78 Units/L 12.0-78.0 N ALKALINE PHOSPHATASE TOTAL (test code = ALKP) 98 Units/L 50.0-136 .0 N CARDIAC ENZYMES [id number] 02:09:00* Test Item Value Reference Range Interpretation Comments CREATINE KINASE (CK) (test code = CK) 92 Units/L 26-192 N TROPONIN-I (test code = TROPI) <0.02 NG/ML 0.00-0.06 N REFERENCE RANGE TROPONIN I HEALTHY INDIVIDUALS: <0.06 ng/mL R/O ISCHEMIA: 0.07 - 0.60 ng/mL CUT-OFF RANGE FOR AMI: 0.60 - 1.5 ng/mL CBC W/AUTO [id number] 01:48:00* Test Item Value Reference Range Interpretation Comments WHITE BLOOD CELL (test code = WBC) 12.7 K/mm3 4.5-11.0 H RED BLOOD CELL (test code = RBC) 4.63 M/mm3 3.80-5.20 N HEMOGLOBIN (test code = HGB) 12.7 gm/dL 12.0-16.0 N HEMATOCRIT (test code = HCT) 40.6 % 36.0-48.0 N MEAN CELL VOLUME (test code = MCV) 87.7 UM3 82.0-99.0 N MEAN CELL HGB (test code = MCH) 27.4 UUG 25.5-32.5 N MEAN CELL HGB CONCETRATION (test code = MCHC) 31.3 gm/dL 29.0-35. 5 N RED CELL DISTRIBUTION WIDTH (test code = RDW) 13.0 % 11.5-15. 0 N RED CELL DISTRIBUTION WIDTH SD (test code = RDW-SD) 41.2 fL 34 .8-50.2 N PLATELET COUNT (test code = PLT) 421 K/mm3 150-400 H MEAN PLATELET VOLUME (test code = MPV) 9.9 fl 7.4-10.4 N NEUTROPHIL % (test code = NT%) 90.9 % 49.0-76.0 H IMMATURE GRANULOCYTE % (test code = IG%) 0.4 % 0.0-0.4 N LYMPHOCYTE % (test code = LY%) 8.0 % 23.0-38.0 L MONOCYTE % (test code = MO%) 0.6 % 1.0-10.0 L EOSINOPHIL % (test code = EO%) 0.0 % 1.0-5.0 L BASOPHIL % (test code = BA%) 0.1 % 0.0-1.0 N NEUTROPHIL # (test code = NT#) 11.6 K/mm3 2.4-6.3 H IMMATURE GRANULOCYTE # (test code = IG#) 0.05 x10 3/uL 0.00-0.07 N LYMPHOCYTE # (test code = LY#) 1.0 K/mm3 1.2-4.0 L MONOCYTE # (test code = MO#) 0.1 K/mm3 0.0-0.6 N EOSINOPHIL # (test code = EO#) 0.0 K/MM3 0.0-0.7 N BASOPHIL # (test code = BA#) 0.0 K/mm3 0.0-0.2 N STREPTOCOCCUS PCR [id number] 00:40:00* Test Item Value Reference Range Interpretation Comments STREPTOCOCCUS DYSGALACTIAE (test code = STREPGC) NEGATIVE FOR G/C N EGATIVE STREPA MOLECULAR (test code = STREPAMOL) NEGATIVE FOR GRP A NEGATIV E LACTIC [id number] 17:52:00* Test Item Value Reference Range Interpretation Comments LACTIC ACID (test code = LACT) 1.9 mmol/L 0.4-1.9 N NEEDEDURINALYSIS [id number] 17:48:00* Test Item Value Reference Range Interpretation Comments UA COLOR (test code = COLU) Light-Yellow YELLOW UA APPEARANCE (test code = APPU) CLEAR CLEAR UA GLUCOSE DIPSTICK (test code = DGLUU) NEGATIVE mg/dL NEGATIVE UA BILIRUBIN DIPSTICK (test code = BILU) NEGATIVE mg/dL NEGATIVE UA KETONE DIPSTICK (test code = KETU) NEGATIVE mg/dL NEGATIVE UA SPECIFIC GRAVITY (test code = SGU) 1.006 1.001-1.035 UA BLOOD DIPSTICK (test code = PHOEBE) Negative mg/dL NEGATIVE UA PH DIPSTICK (test code = ITA) 5.0 5.0-8.0 UA PROTEIN DIPSTICK (test code = PROU) NEGATIVE mg/dL NEGATIVE UA UROBILINIOGEN DIPSTICK (test code = URO) Normal mg/dL NEGATIVE UA NITRITE DIPSTICK (test code = EVARISTO) NEGATIVE NEGATIVE UA LEUKOCYTE ESTERASE W REFLEX (test code = LEUUR) NEGATIVE Simone/uL NEGATIVE UA WBC (test code = WBCU) 0-5 per HPF 0-5 UA RBC (test code = RBCU) 0-2 #/HPF 0-5 UA EPITHELIAL CELLS (test code = EPIU) FEW per HPF FEW UA BACTERIA (test code = BACU) FEW #/HPF NONE A UA MUCUS (test code = MUCU) FEW #/LPF FEW UA YEAST (test code = YEASTU) FEW #/HPF NONE A Urine Source? Clean Catch- XR CHEST 1 [id number] 15:46:00 FAX: Jaqui Barrientos [phone] [place]: St: REG Name: AMBROSIO GARCES [facility] : [birth year] Age/S: 43/F [address] [facility] Unit #: [id number] Loc: [place] [address] Phys: Jaqui Manzanares MD Acct: [id number] Dis Date: Status: REG ER PHONE #: [phone] Exam Date: 05/02/2019 1540 FAX #: [phone] Reason: CODE SEPSIS EXAMS: CPT CODE: [id number] XR CHEST 1 V 74231 HISTORY: CODE SEPSIS, shortness of breath TECHNIQUE: AP chest x-ray COMPARISON: 04/22/18 FINDINGS: Low lung volumes. No airspace consolidat ion or pleural effusion. Mild cardiomegaly. Mediastinal silhouette is unre markable. Thoracic spondylosis. IMPRESSION: No radiographic evidence of acute cardiopulmonary process. LOCATION: LP at 1546 Reported and signed by: Jayde Ramsey D.O. CC: Jaqui Manzanares MD Technologist: LAI BURKETT Trnscrd Date/Time/By: 05/02/2019 (7715) : By: [email or web address] Orig Print D/T: S: 05/02/2019 (0999) PAGE 1 Signed Report B-TYPE NATRIURETIC [id number] 15:42:00* Test Item Value Reference Range Interpretation Comments B-TYPE NATRIURETIC PEPTIDE (test code = BNP) 1.97 pgram/mL 0-100 N LACTIC [id number] 15:15:00* Test Item Value Reference Range Interpretation Comments LACTIC ACID (test code = LACT) 2.2 mmol/L 0.4-1.9 HH Results called to by V.LAB.QD 05/02/19 1514Critical results verified and read back by Nurse? YES BASIC METABOLIC [id number] 15:14:00* Test Item Value Reference Range Interpretation Comments SODIUM (test code = NA) 134 mmol/L 136-145 L POTASSIUM (test code = K) 2.6 mmol/L 3.5-5.1 LL Re sults called to by V.LAB.QD 05/02/19 1514Critical results verified and read back by Nurse? YES CHLORIDE (test code = CL) 95.0 mmol/L 98-107 L CARBON DIOXIDE (test code = CO2) 30.0 mmol/L 21-32 N ANION GAP (test code = GAP) 11.6 10-20 N GLUCOSE (test code = GLU) 96 mg/dL 74-106 N BLOOD UREA NITROGEN (test code = BUN) 11 mg/dL 7-18 N GLOMERULAR FILTRATION RATE (test code = GFR) 55 mL/min >=60 Estimated GFR by using Modified MDRD formula.Chronic kidney disease is defined as either kidney damageor GFR <60 mL/min/1.73 m2 for >3 months. CREATININE (test code = CREAT) 1.10 mg/dL 0.55-1.02 H Note change in reference range due to change in reagent. BUN/CREATININE RATIO (test code = BUN/CREA) 10.0 10-20 N CALCIUM (test code = CA) 9.0 mg/dL 8.5-10.1 N HEPATIC FUNCTION [id number] 15:14:00* Test Item Value Reference Range Interpretation Comments TOTAL PROTEIN (test code = PROT) 8.1 gram/dL 6.4-8.2 N ALBUMIN (test code = ALB) 3.9 g/dL 3.4-5.0 N GLOBULIN (test code = GLOB) 4.2 gram/dL 2.7-4.2 N ALBUMIN/GLOBULIN RATIO (test code = A/G) 0.9 0.75-1.50 N BILIRUBIN TOTAL (test code = BILT) 0.70 mg/dL 0.0-1.0 N BILIRUBIN DIRECT (test code = BILD) 0.14 mg/dL 0.0-0.20 N SGOT/AST (test code = AST) 67 IUnit/L 15-37 H SGPT/ALT (test code = ALT) 83 IUnit/L 12-78 H ALKALINE PHOSPHATASE TOTAL (test code = ALKP) 117 IUnit/L 45-117 N Note change in reference range due to change in reagent. [id number] 15:14:00* Test Item Value Reference Range Interpretation Comments LIPASE (test code = LIP) 129 U/L 73.0-393.0 N HCG SERUM [id number] 15:14:00* Test Item Value Reference Range Interpretation Comments HCG SERUM QUAL (test code = HCGQL) NEGATIVE NEGATIVE This HCGQL test is NOT applicable for MALE patients.Check with nurse about probable order error.If Tumor Marker Test needed, nurse should order test "HCGTU"(Test #550.26582) [id number] 15:14:00* Test Item Value Reference Range Interpretation Comments TROPONIN-I (test code = TROPI) <0.015 ng/mL 0-0.045 N BASIC METABOLIC [id number] 15:05:00* Test Item Value Reference Range Interpretation Comments SODIUM (test code = NA) mmol/L 136-145 POTASSIUM (test code = K) mmol/L 3.5-5.1 CHLORIDE (test code = CL) mmol/L 98-107 CARBON DIOXIDE (test code = CO2) mmol/L 21-32 ANION GAP (test code = GAP) 10-20 GLUCOSE (test code = GLU) mg/dL 74-106 BLOOD UREA NITROGEN (test code = BUN) mg/dL 7-18 GLOMERULAR FILTRATION RATE (test code = GFR) mL/min >=60 CREATININE (test code = CREAT) mg/dL 0.55-1.02 BUN/CREATININE RATIO (test code = BUN/CREA) 10-20 CALCIUM (test code = CA) mg/dL 8.5-10.1 HEPATIC FUNCTION [id number] 15:05:00* Test Item Value Reference Range Interpretation Comments TOTAL PROTEIN (test code = PROT) gram/dL 6.4-8.2 ALBUMIN (test code = ALB) g/dL 3.4-5.0 GLOBULIN (test code = GLOB) gram/dL 2.7-4.2 ALBUMIN/GLOBULIN RATIO (test code = A/G) 0.75-1.50 BILIRUBIN TOTAL (test code = BILT) mg/dL 0.0-1.0 BILIRUBIN DIRECT (test code = BILD) mg/dL 0.0-0.20 SGOT/AST (test code = AST) IUnit/L 15-37 SGPT/ALT (test code = ALT) IUnit/L 12-78 ALKALINE PHOSPHATASE TOTAL (test code = ALKP) IUnit/L 45-117 [id number] 15:05:00* Test Item Value Reference Range Interpretation Comments LIPASE (test code = LIP) U/L 73.0-393.0 HCG SERUM [id number] 15:05:00* Test Item Value Reference Range Interpretation Comments HCG SERUM QUAL (test code = HCGQL) NEGATIVE NEGATIVE This HCGQL test is NOT applicable for MALE patients.Check with nurse about probable order error.If Tumor Marker Test needed, nurse should order test "HCGTU"(Test #550.72106) [id number] 15:05:00* Test Item Value Reference Range Interpretation Comments TROPONIN-I (test code = TROPI) ng/mL 0-0.045 PROTHROMBIN [id number] 15:03:00* Test Item Value Reference Range Interpretation Comments PROTHROMBIN TIME PATIENT (test code = PTP) 11.9 seconds 9.0-14.0 N INTERNATIONAL NORMAL RATIO (test code = INR) 1.0 0.8-1.2 N The therapeutic range for oral anticoagulant therapy formost indications is an international normalized ratio (INR)of between 2.0 and 3.0. The recommended therapeutic INRrange for various clinical situations is listed below: Clinical Situation INR range Pulmonary e mbolism treatment (2.0-3.0)Venous thrombosis treatmentVenous thrombosis prophylaxis (high risk surgery)Prevention of systemic embolism from: Acute myocardial infarction Valvular heart disease Atrial fibrillation Mechanical prosthetic heart valves (2.5-3.5) IS PATIENT ON ANTICOAGULANTS? NTHROMBOPLASTIN TIME [id number] 15:03:00* Test Item Value Reference Range Interpretation Comments THROMBOPLASTIN TIME PARTIAL (test code = PTT) 32.8 seconds 25.0-36. 5 N IS PATIENT ON ANTICOAGULANTS? NCBC W/AUTO [id number] 14:50:00* Test Item Value Reference Range Interpretation Comments WHITE BLOOD CELL (test code = WBC) 12.3 K/mm3 4.5-12.5 N RED BLOOD CELL (test code = RBC) 5.02 mill/mm3 3.7-5.2 N HEMOGLOBIN (test code = HGB) 13.9 gram/dL 11.5-15.5 N HEMATOCRIT (test code = HCT) 43.2 % 36.0-46.0 N MEAN CELL VOLUME (test code = MCV) 86.1 fL 80-98 N MEAN CELL HGB (test code = MCH) 27.7 picogram 27.0-33.0 N MEAN CELL HGB CONCETRATION (test code = MCHC) 32.2 gram/dL 33.0-36. 0 L RED CELL DISTRIBUTION WIDTH (test code = RDW) 13.0 % 11.6-16. 2 N RED CELL DISTRIBUTION WIDTH SD (test code = RDW-SD) 40.3 fL 37 .0-51.0 N PLATELET COUNT (test code = PLT) 459 K/mm3 150-450 H MEAN PLATELET VOLUME (test code = MPV) 9.9 fL 6.7-11.0 N NEUTROPHIL % (test code = NT%) 72.6 % 39.0-69.0 H IMMATURE GRANULOCYTE % (test code = IG%) 0.4 % 0.0-5.0 N LYMPHOCYTE % (test code = LY%) 17.9 % 25.0-55.0 L MONOCYTE % (test code = MO%) 7.3 % 0.0-10.0 N EOSINOPHIL % (test code = EO%) 1.2 % 0.0-5.0 N BASOPHIL % (test code = BA%) 0.6 % 0.0-1.0 N NUCLEATED RBC % (test code = NRBC%) 0.0 % 0-0 N NEUTROPHIL # (test code = NT#) 8.94 K/mm3 1.8-7.7 H IMMATURE GRANULOCYTE # (test code = IG#) 0.05 x10 3/uL 0-0.03 H LYMPHOCYTE # (test code = LY#) 2.21 K/mm3 1.0-5.0 N MONOCYTE # (test code = MO#) 0.90 K/mm3 0-0.8 H EOSINOPHIL # (test code = EO#) 0.15 K/mm3 0.0-0.5 N BASOPHIL # (test code = BA#) 0.08 K/mm3 0.0-0.2 N NUCLEATED RBC # (test code = NRBC#) 0.00 K/mm3 0.0-0.1 N MANUAL DIFF REQUIRED (test code = MDIFF) NO CBC W/AUTO [id number] 14:44:00* Test Item Value Reference Range Interpretation Comments WHITE BLOOD CELL (test code = WBC) K/mm3 4.5-12.5 RED BLOOD CELL (test code = RBC) mill/mm3 3.7-5.2 HEMOGLOBIN (test code = HGB) 13.9 gram/dL 11.5-15.5 N HEMATOCRIT (test code = HCT) 43.2 % 36.0-46.0 N MEAN CELL VOLUME (test code = MCV) fL 80-98 MEAN CELL HGB (test code = MCH) picogram 27.0-33.0 MEAN CELL HGB CONCETRATION (test code = MCHC) gram/dL 33.0-36. 0 RED CELL DISTRIBUTION WIDTH (test code = RDW) % 11.6-16. 2 RED CELL DISTRIBUTION WIDTH SD (test code = RDW-SD) fL 37 .0-51.0 PLATELET COUNT (test code = PLT) K/mm3 150-450 MEAN PLATELET VOLUME (test code = MPV) fL 6.7-11.0 NEUTROPHIL % (test code = NT%) % 39.0-69.0 IMMATURE GRANULOCYTE % (test code = IG%) % 0.0-5.0 LYMPHOCYTE % (test code = LY%) % 25.0-55.0 MONOCYTE % (test code = MO%) % 0.0-10.0 EOSINOPHIL % (test code = EO%) % 0.0-5.0 BASOPHIL % (test code = BA%) % 0.0-1.0 NEUTROPHIL # (test code = NT#) K/mm3 1.8-7.7 LYMPHOCYTE # (test code = LY#) K/mm3 1.0-5.0 MONOCYTE # (test code = MO#) K/mm3 0-0.8 EOSINOPHIL # (test code = EO#) K/mm3 0.0-0.5 BASOPHIL # (test code = BA#) K/mm3 0.0-0.2 CT ABDOMEN/PELVIS [id number] 12:00:00 [facility] [address] [address] Patient Name: AMBROSIO CHILD MR #: [id number] : 1975 Age/Sex: 43/F Req #: [id number] Adm Physician: Ordered by: JUSTINE ZHANG MD Report #: [id number] Location: CT Room/Bed: Procedure: [id number] CT /CT ABDOMEN/PELVIS W Exam Date: 02/21/19 Exam Time: 1130 REPORT STATUS: Signed EXAMI NATION: CT of the abdomen and pelvis with contrast. TECHNIQUE: Spiral CT images of the abdomen and pelvis were performed from the lung bases to the le sser trochanters after the intravenous administration of 100 cc Isovue-370. C oronal and sagittal reformatted images were obtained. COMPARISON: CT abdome n and pelvis without contrast 01/17/2019, CTA abdomen and pelvis 11/19/2018 CLINICAL HISTORY:Right-sided abdominal pain, diarrhea, diverticulitis DISCUSSION: ABDOMEN/PELVIS: LOWER THORAX:Unremarkable. HEPATOB ILIARY: Hepatic parenchyma is diffusely hypoattenuating compatible with steato sis. No focal hepatic lesion or intrahepatic biliary ductal dilatation status post cholecystectomy. SPLEEN: No splenomegaly. PANCREAS: No focal masses or ductal dilatation. ADRENALS: No adrenal nodules. KID NEYS/URETERS: No hydronephrosis, stones, or solid mass lesions. PELVIC ORGA NS/BLADDER: Urinary bladder is unremarkable. Uterus is neutral in position and appears normal. Unchanged appearance of free pelvic fluid, average attenuation 15 Hounsfield units, versus right hydrosalpinx. PERITONEUM/RETROPERITONEUM: As above. No pneumoperitoneum. LYMPH NODES: No pelvic sidewall, retroper itoneal, or mesenteric lymphadenopathy. VESSELS: Abdominal aorta, major b ranch vessels, and iliac arterial systems are patent. Interval long segment st enting of the bilateral common and external iliac veins. Cannot assess patency on phase of this examination. Portal vein, splenic vein, and central superior mesenteric vein are patent. GI TRACT: The large bowel shows no distention or wall thickening. Gas and fecal material are noted throughout. The appendix is not identified in keeping with appendectomy. The stomach is collapsed with prominent rugal folds. No small bowel dilatation to suggest obstruction. BONES AND SOFT TISSUE: No osseous destructive lesions. No focal soft tissue a bnormalities. IMPRESSION: No acute intra-abdominal or pelvic CT abnor malities. No CT findings of diverticulitis per clinical query. Hepatomega ly with hepatic steatosis. Signed by: Dr. Dennise Coy M.D. on 02/21/2019 12:13 PM Dictated By: DENNISE COY MD 121 Transcribed By: ALAN on 02/21/19 1213 COPY TO: JUSTINE ZHANG MD CT ABDOMEN/PELVIS [id number] 16:15:00 [address] [address] Patient Name: AMBROSIO CHILD MR #: [id number] : 1975 Age/Sex: 43/F Req #: [id number] Adm Physician: Ordered by: COLE BALLARD DO Report #: [id number] Location: [facility] Room/Bed: Procedure: [id number] C T/CT ABDOMEN/PELVIS WO Exam Date: Exam Time: REPORT STATUS: Signed CT of the ab domen and pelvis, without contrast, 01/17/2019. History: Pos t catheterization, concern for retroperitoneal hematoma. Comparison: 2018. Technique: Multidetector CT scanning of the abdomen and pelvis was pe rformed from the level of the lung bases to the inferior pubic rami without in travenous or oral contrast. Coronal and sagittal multiplanar reformations wer e obtained. RADIATION DOSE: Total DLP: 731 mGy*cm Dose modula tion, iterative reconstruction, and/or weight based adjustment of the mA/kV wa s utilized to reduce the radiation dose to as low as reasonably achievable. Discussion: Examination is limited without contrast. Lung bases: No visual ized abnormalities. Abdomen: There is diffuse low-density of the liver. Cho lecystectomy clips are present. The biliary tree, spleen, pancreas, adrenal gl ands, and kidneys are unremarkable. Contrast is present within bilateral renal collecting systems consistent with recent intravascular contrast administrati on. The abdominal aorta is within normal limits. There is no bowel dilatation. There is no evidence of adenopathy or free fluid. There is no retroperitoneal fluid collection or hematoma. Pelvis: The bladder, uterus, adnexa are u nremarkable. There is no evidence of adenopathy. A small amount of free fluid is present, likely physiologic. Bones and soft tissues: No acute abnormalit y. IMPRESSION: No acute intra-abdominal finding. Fatty infiltration of the liver is again noted. Signed by: Curtis Baca on 01/17/2019 4 :20 PM Dictated By: CURTIS BACA MD 19 Transcribed By: ALAN on 01/17/19 1620 COPY TO : COLE BALLARD DO CTA ABD/PEL/RUN [id number] 17:09:00 [address] [address] Patient Name: AMBROSIO CHILD MR #: [id number] : 1975 Age/Sex: 43/F Req #: [id number] Adm Physician: Ordered by: COLE BALLARD DO Report #: [id number] Location: CT Room/Bed: Procedure: [id number] C T/CTA ABD/PEL/RUN OFF Exam Date: 11/19/18 Exam Time: 1130 REPORT STATUS: Signed CT of the abdomen and pelvis, with runoff, 11/19/2018. History: Lower extremity swelling. Comparison: CT abdomen 06/06/2018. Technique: Multi detector CT scanning of the abdomen and pelvis was performed from the level of the lung bases to the inferior pubic rami after intravenous administration of contrast. Coronal and sagittal multiplanar reformations were obtained. RADIATION DOSE: Total DLP: 1939 mGy*cm Dose modulation, iterative reconstruction, and/or weight based adjustment of the mA/kV was utilized to reduce the radiation dose to as low as reasonably achievable. Discussio n: LUNG BASES: No visualized abnormalities. ABDOMEN: Liver is enlarged m easuring over 17 cm in length. There is diffuse low-density of the liver. Chol ecystectomy clips are present. The biliary tree, spleen, pancreas, adrenal gla nds, and kidneys are normal. The hepatic vein, portal vein, and splenic vein a re patent. The abdominal aorta is within normal limits for size. Evaluation b owel is limited without oral contrast. Appendectomy clips are present. There i s no bowel dilatation. There is no evidence of adenopathy or free fluid. No evidence of retroperitoneal mass causing IVC compression. PELVIS: The bl adder, uterus, adnexa are normal in appearance. There is a small amount of boo e fluid, likely physiologic. Lower extremity runoff: Arterial system incl uding the aorta, common iliac arteries, external iliac arteries, common femora l arteries, superficial femoral arteries, popliteal arteries, and trifurcation vessels are patent bilaterally. Venous system is patent, including IVC, bilat eral common iliac veins, external iliac veins, internal iliac veins, common fe moral vein, superficial femoral vein, and popliteal veins bilaterally. Calf ve ins also enhance normally and are patent. BONES AND SOFT TISSUES: No abno rmality. IMPRESSION: 1. Hepatomegaly with diffuse fatty infiltratio n of the liver. 2. Status post cholecystectomy. Otherwise unremarkable CT of t he abdomen and pelvis. 3. Normal bilateral runoff. Patent lower extremity a rterial and venous systems bilaterally. Patent central veins. Signed by: Curtis Baca on 11/19/2018 5:15 PM Dictated By: CURTIS BACA MD Electr onically Signed By: CURTIS BACA MD on 11/19/181714 Transcribed By: ALAN cool 11/19/181714 COPY TO: COLE BALLARD DO CT ABDOMEN/PELVIS WO 2018-06-06 16:13:00 [address] [place] [address] Patient Name: AMBROSIO CHILD MR #: [id number] : 1975 Age/Sex: 42/F Req #: [id number] Adm Physician: Ordered by: JUSTINE ZHANG MD Report #: [id number] Location: CT Room/Bed: Procedure: [id number] CT /CT ABDOMEN/PELVIS WO Exam Date: 06/06/18 Exam Time: 1550 REPORT STATUS: Signed EXAM INATION: CT of the abdomen and pelvis without contrast. TECHNIQUE: Spiral CT images of the abdomen and pelvis were performed from the lung bases to the lesser trochanters. No intravenous contrast was given per iodine allergy. Cor onal and sagittal reformatted images were obtained. COMPARISON: Right upper quadrant pain, cholecystectomy in April 25, 2018 CLINICAL HISTORY:Abdominal pain DISCUSSION: ABSENCE OF INTRAVENOUS CONTRAST DECREASES SENSITIVITY FOR DETECTION OF FOCAL LESIONS AND VASCULAR PATHOLOGY. ABDOMEN/PELVIS: LOWER THORAX: Unremarkable. HEPATOBILIARY:No focal hepatic lesion or intrahepatic biliary dilatation. The gallbladder has been removed with metall ic clips in the gallbladder fossa. Hepatic parenchyma is diffusely hypoattenua ting relative to the spleen, compatible with steatosis. SPLEEN: No spleno megaly. PANCREAS: No focal masses or ductal dilatation. ADRENALS: No a drenal nodules. KIDNEYS/URETERS: No hydronephrosis, stones, or solid mass l esions. PELVIC ORGANS/BLADDER: Urinary bladder is incompletely distended bu t otherwise unremarkable. Uterus is anteflexed and appears normal. No adnexal mass. PERITONEUM/RETROPERITONEUM: Trace free pelvic fluid average attenuati on 10-15 Hounsfield units. Dropped surgical clip in the deep pelvis. No pneu moperitoneum. LYMPH NODES: No pelvic sidewall, retroperitoneal, or mesenter ic lymphadenopathy. VESSELS: Limited evaluation without intravenous contr ast. The abdominal aorta is nonaneurysmal. GI TRACT: The large bowel show s no distention or wall thickening. Status post appendectomy. No small bowel d ilatation to suggest obstruction. BONES AND SOFT TISSUES: No osseous destru ctive lesions. [place] intertrochanteric right femur and left femoral hea d. Degenerative disc changes and facet arthropathy of the lower lumbar spine. Transitional lumbosacral anatomy. IMPRESSION: No acute intra-abdomi nal or pelvic CT abnormalities. Trace free pelvic fluid is likely physiologic in a patient of this age. Hepatic steatosis. Signed by: Dr. Dennise willingham M.D. on 06/06/2018 4:20 PM Dictated By: DENNISE COY MD Electronical ly Signed By: DENNISE COY MD on 06/06/18 1620 Transcribed By: ALAN on 02/24 1620 COPY TO: JUSTINE ZHANG MD [id number] 13:06:00 RUN DATE: 04/25/18 [employer] PAGE 1 RUN TIME: 1306 Specimen Inqui ry RUN USER: INTERFACE PATIENT: AMBROSIO CHILD ACCT #: [id number] LOC: DAMIAN U #: [id number] AGE/SX: 42/F ROOM: [facility] RE04/22/18[facility]: Poli Bazan MD : [birth year] BED: A DIS: STATUS: ADM Afua TLOC: SPEC #: [id number] RECD: 04/24/18 STATUS: BEHZAD REQ #: [id number] ALIRIO: 04/24/[address] [facility] [address]: Evans Deleon MD ENTERED: 04/24/18 SP TYPE: GALLBLADD OTHR DR: Vandana Ballard Fernando E MDORDERED: GROSS COPIES TO: Juan Pablo Ballard DO [address] [place] [address] Evans Deleon MD [address] [place], [place] [address] [email or web address] MARKERS: ABNORMAL TISSUE, GALLBLADDER PROCEDURES: GROSS (04/25/18) TISSUES: GALLBLADDER, NOS CLINICAL HISTORY COLLECTION DATE: 04/24/2018 CHOLECYSTITIS FINAL DIAGNOSIS Gallbladder, cholecystectomy: CHRONIC CHOLECYSTITIS CHOLESTEROLOSIS NEGATIVE FOR MALIGNANCY FA/sm A 74965 CONTINUED ON NEXT PAGE RUN DATE: 04/25/18 [facility] PAGE 2 RUN TIME: 1306 Speci men Inquiry RUN USER: INTERFACE SPEC #: [id number] PATIENT: AMBROSIO DEL ROSARIO #[id number] (Continued) TOYA CHATMANOPIC The specimen is received in formalin, labeled with the patient's nam e, and identified as "gallbladder". It consists of a gallbladder which measur es 7.3 X 2.2 X 1.3 cm. The serosal surface is unremarkable. The gallbladder contains bile. No stones are found within the gallbladder. The gallbladder m ucosa is velvety and there are some faint yellow streaks in areas. No stones are found within the container or within the gallbladder. The gallbladder wal l measures 0.15 cm in thickness. 0.5 cm of cystic duct is attached to the gal lbladder. Samples of the specimen are submitted for microscopic evaluation in a single cassette. GROSS PERFORMED AT [facility] [address] [place] [address] [phone])[phone] MICROSCOPIC All of the stains, including any con trols performed, stain appropriately. MICROSCOPIC PERFORMED AT [facility] [address] [facility], [place] [address] (p)[phone] PERFORMING SITE Diagnosis performed at: [facility], [place] [address] [facility] [place] [address] Signed SIGNATURE ON FILE Jona Girard MD 04/25/18 1306 END OF REPORT CBC W/AUTO [id number] 07:37:00* Test Item Value Reference Range Interpretation Comments WHITE BLOOD CELL (test code = WBC) 12.0 K/mm3 4.5-12.5 N RED BLOOD CELL (test code = RBC) 4.03 mill/mm3 3.7-5.2 N HEMOGLOBIN (test code = HGB) 11.3 gram/dL 11.5-15.5 L HEMATOCRIT (test code = HCT) 37.0 % 36.0-46.0 N MEAN CELL VOLUME (test code = MCV) 91.8 fL 80-98 N MEAN CELL HGB (test code = MCH) 28.0 picogram 27.0-33.0 N MEAN CELL HGB CONCETRATION (test code = MCHC) 30.5 gram/dL 33.0-36. 0 L RED CELL DISTRIBUTION WIDTH (test code = RDW) 13.4 % 11.6-16. 2 N RED CELL DISTRIBUTION WIDTH SD (test code = RDW-SD) 45.5 fL 37 .0-51.0 N PLATELET COUNT (test code = PLT) 365 K/mm3 150-450 N MEAN PLATELET VOLUME (test code = MPV) 10.1 fL 6.7-11.0 N NEUTROPHIL % (test code = NT%) 73.4 % 39.0-69.0 H IMMATURE GRANULOCYTE % (test code = IG%) 0.5 % 0.0-5.0 N LYMPHOCYTE % (test code = LY%) 18.5 % 25.0-55.0 L MONOCYTE % (test code = MO%) 7.0 % 0.0-10.0 N EOSINOPHIL % (test code = EO%) 0.4 % 0.0-5.0 N BASOPHIL % (test code = BA%) 0.2 % 0.0-1.0 N NUCLEATED RBC % (test code = NRBC%) 0.0 % 0-0 N NEUTROPHIL # (test code = NT#) 8.83 K/mm3 1.8-7.7 H IMMATURE GRANULOCYTE # (test code = IG#) 0.06 x10 3/uL 0-0.03 H LYMPHOCYTE # (test code = LY#) 2.22 K/mm3 1.0-5.0 N MONOCYTE # (test code = MO#) 0.84 K/mm3 0-0.8 H EOSINOPHIL # (test code = EO#) 0.05 K/mm3 0.0-0.5 N BASOPHIL # (test code = BA#) 0.03 K/mm3 0.0-0.2 N NUCLEATED RBC # (test code = NRBC#) 0.00 K/mm3 0.0-0.1 N MANUAL DIFF REQUIRED (test code = MDIFF) NO HEPATIC FUNCTION [id number] 07:33:00* Test Item Value Reference Range Interpretation Comments TOTAL PROTEIN (test code = PROT) 6.6 gram/dL 6.4-8.2 N ALBUMIN (test code = ALB) 3.2 g/dL 3.4-5.0 L GLOBULIN (test code = GLOB) 3.4 gram/dL 2.7-4.2 N ALBUMIN/GLOBULIN RATIO (test code = A/G) 0.9 0.75-1.50 N BILIRUBIN TOTAL (test code = BILT) 0.50 mg/dL 0.0-1.0 N BILIRUBIN DIRECT (test code = BILD) 0.09 mg/dL 0.0-0.20 N SGOT/AST (test code = AST) 47 IUnit/L 15-37 H SGPT/ALT (test code = ALT) 60 IUnit/L 12-78 N ALKALINE PHOSPHATASE TOTAL (test code = ALKP) 79 IUnit/L 45-117 N Note change in reference range due to change in reagent. COMPREHENSIVE METABOLIC [id number] 10:11:00* Test Item Value Reference Range Interpretation Comments SODIUM (test code = NA) 140 mmol/L 136-145 N POTASSIUM (test code = K) 4.5 mmol/L 3.5-5.1 N CHLORIDE (test code = CL) 107.0 mmol/L 98-107 N CARBON DIOXIDE (test code = CO2) 28.0 mmol/L 21-32 N ANION GAP (test code = GAP) 9.5 10-20 L GLUCOSE (test code = GLU) 89 mg/dL 74-106 N BLOOD UREA NITROGEN (test code = BUN) 13 mg/dL 7-18 N GLOMERULAR FILTRATION RATE (test code = GFR) > 60 mL/min >=60 Estimated GFR by using Modified MDRD formula.Chronic kidney disease is defined as either kidney damageor GFR <60 mL/min/1.73 m2 for >3 months. CREATININE (test code = CREAT) 0.80 mg/dL 0.55-1.02 N Note change in reference range due to change in reagent. BUN/CREATININE RATIO (test code = BUN/CREA) 15.7 10-20 N TOTAL PROTEIN (test code = PROT) 6.6 gram/dL 6.4-8.2 N ALBUMIN (test code = ALB) 3.5 g/dL 3.4-5.0 N GLOBULIN (test code = GLOB) 3.1 gram/dL 2.7-4.2 N ALBUMIN/GLOBULIN RATIO (test code = A/G) 1.1 0.75-1.50 N CALCIUM (test code = CA) 8.4 mg/dL 8.5-10.1 L BILIRUBIN TOTAL (test code = BILT) 0.40 mg/dL 0.0-1.0 N SGOT/AST (test code = AST) 43 IUnit/L 15-37 H SGPT/ALT (test code = ALT) 59 IUnit/L 12-78 N ALKALINE PHOSPHATASE TOTAL (test code = ALKP) 96 IUnit/L 45-117 N Note change in reference range due to change in reagent. COMPREHENSIVE METABOLIC [id number] 09:55:00* Test Item Value Reference Range Interpretation Comments SODIUM (test code = NA) 140 mmol/L 136-145 N POTASSIUM (test code = K) 4.5 mmol/L 3.5-5.1 N CHLORIDE (test code = CL) 107.0 mmol/L 98-107 N CARBON DIOXIDE (test code = CO2) mmol/L 21-32 ANION GAP (test code = GAP) 10-20 GLUCOSE (test code = GLU) mg/dL 74-106 BLOOD UREA NITROGEN (test code = BUN) mg/dL 7-18 GLOMERULAR FILTRATION RATE (test code = GFR) mL/min >=60 CREATININE (test code = CREAT) mg/dL 0.55-1.02 BUN/CREATININE RATIO (test code = BUN/CREA) 10-20 TOTAL PROTEIN (test code = PROT) gram/dL 6.4-8.2 ALBUMIN (test code = ALB) g/dL 3.4-5.0 GLOBULIN (test code = GLOB) gram/dL 2.7-4.2 ALBUMIN/GLOBULIN RATIO (test code = A/G) 0.75-1.50 CALCIUM (test code = CA) mg/dL 8.5-10.1 BILIRUBIN TOTAL (test code = BILT) mg/dL 0.0-1.0 SGOT/AST (test code = AST) IUnit/L 15-37 SGPT/ALT (test code = ALT) IUnit/L 12-78 ALKALINE PHOSPHATASE TOTAL (test code = ALKP) IUnit/L 45-117 CBC W/AUTO [id number] 09:53:00* Test Item Value Reference Range Interpretation Comments WHITE BLOOD CELL (test code = WBC) 12.7 K/mm3 4.5-12.5 H RED BLOOD CELL (test code = RBC) 4.58 mill/mm3 3.7-5.2 N HEMOGLOBIN (test code = HGB) 12.5 gram/dL 11.5-15.5 N HEMATOCRIT (test code = HCT) 41.7 % 36.0-46.0 N MEAN CELL VOLUME (test code = MCV) 91.0 fL 80-98 N MEAN CELL HGB (test code = MCH) 27.3 picogram 27.0-33.0 N MEAN CELL HGB CONCETRATION (test code = MCHC) 30.0 gram/dL 33.0-36. 0 L RED CELL DISTRIBUTION WIDTH (test code = RDW) 13.2 % 11.6-16. 2 N RED CELL DISTRIBUTION WIDTH SD (test code = RDW-SD) 43.9 fL 37 .0-51.0 N PLATELET COUNT (test code = PLT) 394 K/mm3 150-450 N MEAN PLATELET VOLUME (test code = MPV) 10.2 fL 6.7-11.0 N NEUTROPHIL % (test code = NT%) 69.2 % 39.0-69.0 H IMMATURE GRANULOCYTE % (test code = IG%) 0.6 % 0.0-5.0 N LYMPHOCYTE % (test code = LY%) 21.7 % 25.0-55.0 L MONOCYTE % (test code = MO%) 6.4 % 0.0-10.0 N EOSINOPHIL % (test code = EO%) 1.7 % 0.0-5.0 N BASOPHIL % (test code = BA%) 0.4 % 0.0-1.0 N NUCLEATED RBC % (test code = NRBC%) 0.0 % 0-0 N NEUTROPHIL # (test code = NT#) 8.78 K/mm3 1.8-7.7 H IMMATURE GRANULOCYTE # (test code = IG#) 0.07 x10 3/uL 0-0.03 H LYMPHOCYTE # (test code = LY#) 2.75 K/mm3 1.0-5.0 N MONOCYTE # (test code = MO#) 0.81 K/mm3 0-0.8 H EOSINOPHIL # (test code = EO#) 0.22 K/mm3 0.0-0.5 N BASOPHIL # (test code = BA#) 0.05 K/mm3 0.0-0.2 N NUCLEATED RBC # (test code = NRBC#) 0.00 K/mm3 0.0-0.1 N MANUAL DIFF REQUIRED (test code = MDIFF) NO CBC W/AUTO [id number] 09:50:00* Test Item Value Reference Range Interpretation Comments WHITE BLOOD CELL (test code = WBC) K/mm3 4.5-12.5 RED BLOOD CELL (test code = RBC) mill/mm3 3.7-5.2 HEMOGLOBIN (test code = HGB) 12.5 gram/dL 11.5-15.5 N HEMATOCRIT (test code = HCT) 41.7 % 36.0-46.0 N MEAN CELL VOLUME (test code = MCV) fL 80-98 MEAN CELL HGB (test code = MCH) picogram 27.0-33.0 MEAN CELL HGB CONCETRATION (test code = MCHC) gram/dL 33.0-36. 0 RED CELL DISTRIBUTION WIDTH (test code = RDW) % 11.6-16. 2 RED CELL DISTRIBUTION WIDTH SD (test code = RDW-SD) fL 37 .0-51.0 PLATELET COUNT (test code = PLT) K/mm3 150-450 MEAN PLATELET VOLUME (test code = MPV) fL 6.7-11.0 NEUTROPHIL % (test code = NT%) % 39.0-69.0 IMMATURE GRANULOCYTE % (test code = IG%) % 0.0-5.0 LYMPHOCYTE % (test code = LY%) % 25.0-55.0 MONOCYTE % (test code = MO%) % 0.0-10.0 EOSINOPHIL % (test code = EO%) % 0.0-5.0 BASOPHIL % (test code = BA%) % 0.0-1.0 NEUTROPHIL # (test code = NT#) K/mm3 1.8-7.7 LYMPHOCYTE # (test code = LY#) K/mm3 1.0-5.0 MONOCYTE # (test code = MO#) K/mm3 0-0.8 EOSINOPHIL # (test code = EO#) K/mm3 0.0-0.5 BASOPHIL # (test code = BA#) K/mm3 0.0-0.2 - HEPA IMAG INCL GB W [id number] 09:12:00 FAX: Poli Alvarado MD [place]: B St: [facility] FAX: Juan Pablo Rdz DO [phone] Name: AMBROSIO CHILD [facility] : 1975 Age/S: 42/F [place] Dick Unit #: [id number] Loc: [id number] [address] Phys: Poli Bazan MD Acct: [id number] Dis Date: Status: ADM IN PHONE #: [phone] Exam Date: 04/23/2018909 FAX #: [phone] Reason: contracted gallbladder w/ abd pain. EXAMS: CPT CODE: [id number] HEPA IMAG INCL GB W PHA [id number] HISTORY: Abdominal pain and contracted gallbladder. COMPARISON: [...] Technologist: MYRON LARA Trnscrd Da te/Time/By: 04/23/2018 (0912) : By: [email or web address] Orig Print D/T: S: 04/23 (5815) PAGE 1 Signed Report [id number] 07:41:00* Test Item Value Reference Range Interpretation Comments TROPONIN-I (test code = TROPI) <0.015 ng/mL 0-0.045 N COMMENTS TO [employer]LE [employer] DEVELOPER: COLLECT 3 HOURS AFTER PREVIOUS [id number] 05:22:00* Test Item Value Reference Range Interpretation Comments TROPONIN-I (test code = TROPI) <0.015 ng/mL 0-0.045 N COMMENTS TO [employer]LE [employer] DEVELOPER: COLLECT 3 HOURS AFTER PREVIOUS [id number] 23:15:00* Test Item Value Reference Range Interpretation Comments TROPONIN-I (test code = TROPI) <0.015 ng/mL 0-0.045 N - CT ABD PELVIS W/O [id number] 22:52:00 Name: AMBROSIO CHILD [facility] : 1975 Age/S: 42 / F [address] [facility] Unit #: [id number] Loc: [place] [address] Phys: Gay Washburn DO Acct: [id number] Dis Date: Status: REG ER PHONE #: [phone] Exam Date: 04/22/20185 FAX #: [phone] Reason: abdominal pain, r/o appendicitis EXAMS: CPT CODE: [id number] CT ABD PELVIS W/O CONT 60805 REASON FOR EXAM: abdominal pain, r/o appendicitis EXAM ORDER DATE: 04/22/2018 10:11 PM Ordering M.Chuck: Gay Washburn DO PROCEDURE: - CT ABD [...] Ballard DO; Gay Washburn DO Technologis t:HUMERA COX CT CTDI: DLP: Trnscb Date/Time: (3704) RocioL Orig Print D/T: S: 04/22/2018 (2 255) CTDI: DLP: PAGE 1 Signed Rep ort - US ABDOMEN [id number] 21:22:00 Name: AMBROSIO CHILD [facility] : 1975 Age/S: 42 / F [place]oonam Dick Unit #: [id number] Loc: [place] [address] Phys: Justin Washburn DO Acct: [id number] Di s Date: Status: REG ER PHONE #: [phone] Exam Date: 04/22/20182111 FAX #: Reason: Abdominal Pain EXAMS: CPT CODE: [id number] US ABDOMEN LTD [id number] REASON FOR EXAM: Abdominal Pain EXAM ORDER DATE: 04/22/2018 8:11 PM At berto Pichardo.: Gay Washburn DO PROCEDURE: - US ABDOMEN [...] Pablo Ballard DO; Rafia Washburn DO Technologist: ELIZABETH YADAV Trnscb Date/Time: 04/22/2018 (2121) tANITHAL Orig Print D/T: S: 04/22/2018 (2124) Probe: PAGE 1 Signed Report BASIC METABOLIC [id number] 20:49:00* Test Item Value Reference Range Interpretation Comments SODIUM (test code = NA) 137 mmol/L 136-145 N POTASSIUM (test code = K) 4.3 mmol/L 3.5-5.1 N CHLORIDE (test code = CL) 106.0 mmol/L 98-107 N CARBON DIOXIDE (test code = CO2) 22.0 mmol/L 21-32 N ANION GAP (test code = GAP) 13.3 10-20 N GLUCOSE (test code = GLU) 86 mg/dL 74-106 N BLOOD UREA NITROGEN (test code = BUN) 14 mg/dL 7-18 N GLOMERULAR FILTRATION RATE (test code = GFR) > 60 mL/min >=60 Estimated GFR by using Modified MDRD formula.Chronic kidney disease is defined as either kidney damageor GFR <60 mL/min/1.73 m2 for >3 months. CREATININE (test code = CREAT) 0.90 mg/dL 0.55-1.02 N Note change in reference range due to change in reagent. BUN/CREATININE RATIO (test code = BUN/CREA) 15.8 10-20 N CALCIUM (test code = CA) 9.0 mg/dL 8.5-10.1 N HEPATIC FUNCTION [id number] 20:49:00* Test Item Value Reference Range Interpretation Comments TOTAL PROTEIN (test code = PROT) 7.5 gram/dL 6.4-8.2 N ALBUMIN (test code = ALB) 3.6 g/dL 3.4-5.0 N GLOBULIN (test code = GLOB) 3.9 gram/dL 2.7-4.2 N ALBUMIN/GLOBULIN RATIO (test code = A/G) 0.9 0.75-1.50 N BILIRUBIN TOTAL (test code = BILT) 0.30 mg/dL 0.0-1.0 N BILIRUBIN DIRECT (test code = BILD) 0.07 mg/dL 0.0-0.20 N SGOT/AST (test code = AST) 46 IUnit/L 15-37 H SGPT/ALT (test code = ALT) 59 IUnit/L 12-78 N ALKALINE PHOSPHATASE TOTAL (test code = ALKP) 110 IUnit/L 45-117 N Note change in reference range due to change in reagent. [id number] 20:49:00* Test Item Value Reference Range Interpretation Comments LIPASE (test code = LIP) 150 U/L 73.0-393.0 N HCG SERUM [id number] 20:49:00* Test Item Value Reference Range Interpretation Comments HCG SERUM QUAL (test code = HCGQL) NEGATIVE NEGATIVE This HCGQL test is NOT applicable for MALE patients.Check with nurse about probable order error.If Tumor Marker Test needed, nurse should order test "HCGTU"(Test #550.15451) BASIC METABOLIC [id number] 20:46:00* Test Item Value Reference Range Interpretation Comments SODIUM (test code = NA) 137 mmol/L 136-145 N POTASSIUM (test code = K) 4.3 mmol/L 3.5-5.1 N CHLORIDE (test code = CL) 106.0 mmol/L 98-107 N CARBON DIOXIDE (test code = CO2) 22.0 mmol/L 21-32 N ANION GAP (test code = GAP) 13.3 10-20 N GLUCOSE (test code = GLU) 86 mg/dL 74-106 N BLOOD UREA NITROGEN (test code = BUN) 14 mg/dL 7-18 N GLOMERULAR FILTRATION RATE (test code = GFR) > 60 mL/min >=60 Estimated GFR by using Modified MDRD formula.Chronic kidney disease is defined as either kidney damageor GFR <60 mL/min/1.73 m2 for >3 months. CREATININE (test code = CREAT) 0.90 mg/dL 0.55-1.02 N Note change in reference range due to change in reagent. BUN/CREATININE RATIO (test code = BUN/CREA) 15.8 10-20 N CALCIUM (test code = CA) 9.0 mg/dL 8.5-10.1 N HEPATIC FUNCTION [id number] 20:46:00* Test Item Value Reference Range Interpretation Comments TOTAL PROTEIN (test code = PROT) 7.5 gram/dL 6.4-8.2 N ALBUMIN (test code = ALB) 3.6 g/dL 3.4-5.0 N GLOBULIN (test code = GLOB) 3.9 gram/dL 2.7-4.2 N ALBUMIN/GLOBULIN RATIO (test code = A/G) 0.9 0.75-1.50 N BILIRUBIN TOTAL (test code = BILT) 0.30 mg/dL 0.0-1.0 N BILIRUBIN DIRECT (test code = BILD) 0.07 mg/dL 0.0-0.20 N SGOT/AST (test code = AST) 46 IUnit/L 15-37 H SGPT/ALT (test code = ALT) 59 IUnit/L 12-78 N ALKALINE PHOSPHATASE TOTAL (test code = ALKP) 110 IUnit/L 45-117 N Note change in reference range due to change in reagent. [id number] 20:46:00* Test Item Value Reference Range Interpretation Comments LIPASE (test code = LIP) 150 U/L 73.0-393.0 N HCG SERUM [id number] 20:46:00* Test Item Value Reference Range Interpretation Comments HCG SERUM QUAL (test code = HCGQL) NEGATIVE BASIC METABOLIC [id number] 20:42:00* Test Item Value Reference Range Interpretation Comments SODIUM (test code = NA) 137 mmol/L 136-145 N POTASSIUM (test code = K) 4.3 mmol/L 3.5-5.1 N CHLORIDE (test code = CL) 106.0 mmol/L 98-107 N CARBON DIOXIDE (test code = CO2) mmol/L 21-32 ANION GAP (test code = GAP) 10-20 GLUCOSE (test code = GLU) mg/dL 74-106 BLOOD UREA NITROGEN (test code = BUN) mg/dL 7-18 GLOMERULAR FILTRATION RATE (test code = GFR) mL/min >=60 CREATININE (test code = CREAT) mg/dL 0.55-1.02 BUN/CREATININE RATIO (test code = BUN/CREA) 10-20 CALCIUM (test code = CA) mg/dL 8.5-10.1 HEPATIC FUNCTION [id number] 20:42:00* Test Item Value Reference Range Interpretation Comments TOTAL PROTEIN (test code = PROT) gram/dL 6.4-8.2 ALBUMIN (test code = ALB) g/dL 3.4-5.0 GLOBULIN (test code = GLOB) gram/dL 2.7-4.2 ALBUMIN/GLOBULIN RATIO (test code = A/G) 0.75-1.50 BILIRUBIN TOTAL (test code = BILT) mg/dL 0.0-1.0 BILIRUBIN DIRECT (test code = BILD) mg/dL 0.0-0.20 SGOT/AST (test code = AST) IUnit/L 15-37 SGPT/ALT (test code = ALT) IUnit/L 12-78 ALKALINE PHOSPHATASE TOTAL (test code = ALKP) IUnit/L 45-117 [id number] 20:42:00* Test Item Value Reference Range Interpretation Comments LIPASE (test code = LIP) U/L 73.0-393.0 HCG SERUM [id number] 20:42:00* Test Item Value Reference Range Interpretation Comments HCG SERUM QUAL (test code = HCGQL) NEGATIVE - XR CHEST 1 [id number] 20:34:00 FAX: Juan Pablo Rdz DO [phone] [place]: St: PRE FAX: Gay Washburn DO Name: DANYELLAMBROSIO FLAQUITA [facility] : 1975 Age/S: 42/F [address] [facility] Unit #: [id number] Loc: [place] [address] Phys: Gay Washburn DO Acct: [id number] Dis Date: Status: PRE ER PHONE #: [phone] Exam Date: 04/22/20182029 FAX #: [phone] Reason: chest pain EXAMS: CPT CODE: [id number] XR CHEST 1 V 62017 REASON FOR EXAM: chest pain EXAM ORDER [...] are unremarkable. IMPRESSION: No active disease. at 2034 Reported and signed by: López Beatty M.D. CC: Juan Pablo Ballard DO; Gay Washburn DO Technologist: Sai WAY(R) Trnscrd Date/Time/By: 04/22/2018 (2033) : By: NavaVTL Orig Print D/T: S: 04/22/2018 (2037) PAGE 1 Signed Report CBC W/O [id number] 20:22:00* Test Item Value Reference Range Interpretation Comments WHITE BLOOD CELL (test code = WBC) 15.2 K/mm3 4.5-12.5 H RED BLOOD CELL (test code = RBC) 4.69 mill/mm3 3.7-5.2 N HEMOGLOBIN (test code = HGB) 13.4 gram/dL 11.5-15.5 N HEMATOCRIT (test code = HCT) 42.2 % 36.0-46.0 N MEAN CELL VOLUME (test code = MCV) 90.0 fL 80-98 N MEAN CELL HGB (test code = MCH) 28.6 picogram 27.0-33.0 N MEAN CELL HGB CONCETRATION (test code = MCHC) 31.8 gram/dL 33.0-36. 0 L RED CELL DISTRIBUTION WIDTH (test code = RDW) 13.0 % 11.6-16. 2 N PLATELET COUNT (test code = PLT) 428 K/mm3 150-450 N MEAN PLATELET VOLUME (test code = MPV) 10.2 fL 6.7-11.0 N CBC W/O [id number] 20:17:00* Test Item Value Reference Range Interpretation Comments WHITE BLOOD CELL (test code = WBC) K/mm3 4.5-12.5 RED BLOOD CELL (test code = RBC) mill/mm3 3.7-5.2 HEMOGLOBIN (test code = HGB) 13.4 gram/dL 11.5-15.5 N HEMATOCRIT (test code = HCT) 42.2 % 36.0-46.0 N MEAN CELL VOLUME (test code = MCV) fL 80-98 MEAN CELL HGB (test code = MCH) picogram 27.0-33.0 MEAN CELL HGB CONCETRATION (test code = MCHC) gram/dL 33.0-36. 0 RED CELL DISTRIBUTION WIDTH (test code = RDW) % 11.6-16. 2 PLATELET COUNT (test code = PLT) K/mm3 150-450 MEAN PLATELET VOLUME (test code = MPV) fL 6.7-11.0 URINALYSIS [id number] 20:17:00* Test Item Value Reference Range Interpretation Comments UA COLOR (test code = COLU) STRAW YELLOW UA APPEARANCE (test code = APPU) CLEAR CLEAR UA GLUCOSE DIPSTICK (test code = DGLUU) NEGATIVE mg/dL NEGATIVE UA BILIRUBIN DIPSTICK (test code = BILU) NEGATIVE mg/dL NEGATIVE UA KETONE DIPSTICK (test code = KETU) Negative mg/dL NEGATIVE UA SPECIFIC GRAVITY (test code = SGU) 1.011 1.001-1.035 UA BLOOD DIPSTICK (test code = PHOEBE) Negative NEGATIVE UA PH DIPSTICK (test code = ITA) 5.0 5.0-8.0 UA PROTEIN DIPSTICK (test code = PROU) Negative mg/dL NEGATIVE UA UROBILINIOGEN DIPSTICK (test code = URO) NEGATIVE mg/dL NEGATIVE UA NITRITE DIPSTICK (test code = EVARISTO) NEGATIVE NEGATIVE UA LEUKOCYTE ESTERASE W REFLEX (test code = LEUUR) NEGATIVE NEG ATIVE UA WBC (test code = WBCU) 0-5 #/HPF 0-5 UA RBC (test code = RBCU) NONE SEEN #/HPF 0-5 UA EPITHELIAL CELLS (test code = EPIU) None seen per HPF FEW UA BACTERIA (test code = BACU) NONE SEEN #/HPF NONE UA MUCUS (test code = MUCU) FEW #/LPF FEW Urine Source? Clean CatchURINALYSIS [id number] 20:12:00* Test Item Value Reference Range Interpretation Comments UA COLOR (test code = COLU) STRAW YELLOW UA APPEARANCE (test code = APPU) CLEAR CLEAR UA GLUCOSE DIPSTICK (test code = DGLUU) NEGATIVE mg/dL NEGATIVE UA BILIRUBIN DIPSTICK (test code = BILU) NEGATIVE mg/dL NEGATIVE UA KETONE DIPSTICK (test code = KETU) Negative mg/dL NEGATIVE UA SPECIFIC GRAVITY (test code = SGU) 1.011 1.001-1.035 UA BLOOD DIPSTICK (test code = PHOEBE) Negative NEGATIVE UA PH DIPSTICK (test code = ITA) 5.0 5.0-8.0 UA PROTEIN DIPSTICK (test code = PROU) Negative mg/dL NEGATIVE UA UROBILINIOGEN DIPSTICK (test code = URO) NEGATIVE mg/dL NEGATIVE UA NITRITE DIPSTICK (test code = EVARISTO) NEGATIVE NEGATIVE UA LEUKOCYTE ESTERASE W REFLEX (test code = LEUUR) NEGATIVE NEG ATIVE UA WBC (test code = WBCU) per HPF 0-5 Urine Source? Clean CatchURINALYSIS [id number] 21:31:00* Test Item Value Reference Range Interpretation Comments UA COLOR (test code = COLU) LIGHT YELLOW YELLOW UA APPEARANCE (test code = APPU) CLEAR CLEAR UA GLUCOSE DIPSTICK (test code = DGLUU) NEGATIVE mg/dL NEGATIVE UA BILIRUBIN DIPSTICK (test code = BILU) NEGATIVE mg/dL NEGATIVE UA KETONE DIPSTICK (test code = KETU) Negative mg/dL NEGATIVE UA SPECIFIC GRAVITY (test code = SGU) 1.018 1.001-1.035 UA BLOOD DIPSTICK (test code = PHOEBE) Negative NEGATIVE UA PH DIPSTICK (test code = ITA) 8.0 5.0-8.0 UA PROTEIN DIPSTICK (test code = PROU) Negative mg/dL NEGATIVE UA UROBILINIOGEN DIPSTICK (test code = URO) NEGATIVE mg/dL NEGATIVE UA NITRITE DIPSTICK (test code = EVARISTO) NEGATIVE NEGATIVE UA LEUKOCYTE ESTERASE W REFLEX (test code = LEUUR) NEGATIVE NEG ATIVE UA WBC (test code = WBCU) 0-5 #/HPF 0-5 UA RBC (test code = RBCU) 0-2 #/HPF 0-5 UA BACTERIA (test code = BACU) FEW #/HPF NONE A UA MUCUS (test code = MUCU) FEW #/LPF FEW Urine Source? Clean CatchDRUGS OF ABUSE SCREEN [id number] 21:31:00* Test Item Value Reference Range Interpretation Comments URN COCAINE (test code = COCAURN) NEGATIVE <300 ng/mL URN CANNABINOIDS (test code = CANNABURN) NEGATIVE <50 ng/mL URN AMPHETAMINE (test code = AMPHETURN) NEGATIVE <1000 ng/mL URN BARBITURATE (test code = BARBITURN) NEGATIVE <200 ng/mL URN BENZODIAZEPINE (test code = BENZOURN) NEGATIVE <200 ng/mL URN OPIATES (test code = OPIATURN) NEGATIVE <300 ng/mL URN PHENCYCLIDINE (PCP) (test code = PHENCURN) NEGATIVE <25 ng/ mL URN METHADONE (test code = METHAURN) NEGATIVE <300 ng/mL Urine Source? Clean CatchURINALYSIS [id number] 21:09:00* Test Item Value Reference Range Interpretation Comments UA COLOR (test code = COLU) LIGHT YELLOW YELLOW UA APPEARANCE (test code = APPU) CLEAR CLEAR UA GLUCOSE DIPSTICK (test code = DGLUU) NEGATIVE mg/dL NEGATIVE UA BILIRUBIN DIPSTICK (test code = BILU) NEGATIVE mg/dL NEGATIVE UA KETONE DIPSTICK (test code = KETU) Negative mg/dL NEGATIVE UA SPECIFIC GRAVITY (test code = SGU) 1.018 1.001-1.035 UA BLOOD DIPSTICK (test code = PHOEBE) Negative NEGATIVE UA PH DIPSTICK (test code = ITA) 8.0 5.0-8.0 UA PROTEIN DIPSTICK (test code = PROU) Negative mg/dL NEGATIVE UA UROBILINIOGEN DIPSTICK (test code = URO) NEGATIVE mg/dL NEGATIVE UA NITRITE DIPSTICK (test code = EVARISTO) NEGATIVE NEGATIVE UA LEUKOCYTE ESTERASE W REFLEX (test code = LEUUR) NEGATIVE NEG ATIVE UA WBC (test code = WBCU) 0-5 #/HPF 0-5 UA RBC (test code = RBCU) 0-2 #/HPF 0-5 UA BACTERIA (test code = BACU) FEW #/HPF NONE A UA MUCUS (test code = MUCU) FEW #/LPF FEW Urine Source? Clean CatchDRUGS OF ABUSE SCREEN [id number] 21:09:00* Test Item Value Reference Range Interpretation Comments URN COCAINE (test code = COCAURN) <300 ng/mL URN CANNABINOIDS (test code = CANNABURN) <50 ng/mL URN AMPHETAMINE (test code = AMPHETURN) <1000 ng/mL URN BARBITURATE (test code = BARBITURN) <200 ng/mL URN BENZODIAZEPINE (test code = BENZOURN) <200 ng/mL URN OPIATES (test code = OPIATURN) <300 ng/mL URN PHENCYCLIDINE (PCP) (test code = PHENCURN) <25 ng/ mL URN METHADONE (test code = METHAURN) <300 ng/mL Urine Source? Clean Catch- US ABDOMEN [id number] 20:27:00 Name: AMBROSIO CHILD [facility]: 1975 Age/S: 42 / F [address] Unit #: [id number] Loc: [place] [address] Phys: RITA ORTIZ MD Acct: [id number] Di s Date: Status: REG ER PHONE #: Exam Date: 03/19/20181955 FAX #: Reason: RUQ pain, vomiting EXAMS: CPT CODE: [id number] US ABDOMEN LTD [id number] REASON FOR EXAM: RUQ pain, vomiting EXAM ORDER DATE: 03/19/2018 7:20 PM Attending MVladimir: LOUISE ORTIZ MD PROCEDURE: - US ABDOMEN [...] Fatty liver. No evidence of gallstone. at 2026 Reported and signed by: López Beatty M.D. CC: Juan Pablo Ballard DO; LOUISE ORTIZ MD Obed hnologist: Mallorie Moncada RDMS Trnmob Date/Ti me: 03/19/2018 (2026) tNANO Orig Print D/T: S: 2018 (2029) Probe: PAGE 1 Anu d Report [id number] 19:06:00* Test Item Value Reference Range Interpretation Comments TROPONIN-I (test code = TROPI) <0.015 ng/mL 0-0.045 N [id number] 18:49:00* Test Item Value Reference Range Interpretation Comments LIPASE (test code = LIP) 180 U/L 73.0-393.0 N [id number] 18:49:00* Test Item Value Reference Range Interpretation Comments MAGNESIUM (test code = MAG) 2.2 mg/dL 1.8-2.4 N BASIC METABOLIC [id number] 16:44:00* Test Item Value Reference Range Interpretation Comments SODIUM (test code = NA) 139 mmol/L 136-145 N POTASSIUM (test code = K) 3.7 mmol/L 3.5-5.1 N CHLORIDE (test code = CL) 107.0 mmol/L 98-107 N CARBON DIOXIDE (test code = CO2) 23.0 mmol/L 21-32 N ANION GAP (test code = GAP) 12.7 10-20 N GLUCOSE (test code = GLU) 95 mg/dL 74-106 N BLOOD UREA NITROGEN (test code = BUN) 13 mg/dL 7-18 N GLOMERULAR FILTRATION RATE (test code = GFR) > 60 mL/min >=60 Estimated GFR by using Modified MDRD formula.Chronic kidney disease is defined as either kidney damageor GFR <60 mL/min/1.73 m2 for >3 months. CREATININE (test code = CREAT) 0.90 mg/dL 0.55-1.02 N Note change in reference range due to change in reagent. BUN/CREATININE RATIO (test code = BUN/CREA) 14.4 10-20 N CALCIUM (test code = CA) 8.9 mg/dL 8.5-10.1 N HEPATIC FUNCTION [id number] 16:44:00* Test Item Value Reference Range Interpretation Comments TOTAL PROTEIN (test code = PROT) 7.9 gram/dL 6.4-8.2 N ALBUMIN (test code = ALB) 3.8 g/dL 3.4-5.0 N GLOBULIN (test code = GLOB) 4.1 gram/dL 2.7-4.2 N ALBUMIN/GLOBULIN RATIO (test code = A/G) 0.9 0.75-1.50 N BILIRUBIN TOTAL (test code = BILT) 0.40 mg/dL 0.0-1.0 N BILIRUBIN DIRECT (test code = BILD) 0.05 mg/dL 0.0-0.20 N SGOT/AST (test code = AST) 60 IUnit/L 15-37 H SGPT/ALT (test code = ALT) 74 IUnit/L 12-78 N ALKALINE PHOSPHATASE TOTAL (test code = ALKP) 105 IUnit/L 45-117 N Note change in reference range due to change in reagent. HCG SERUM [id number] 16:44:00* Test Item Value Reference Range Interpretation Comments HCG SERUM QUAL (test code = HCGQL) NEGATIVE NEGATIVE This HCGQL test is NOT applicable for MALE patients.Check with nurse about probable order error.If Tumor Marker Test needed, nurse should order test "HCGTU"(Test #550.46527) [id number] 16:44:00* Test Item Value Reference Range Interpretation Comments ACETAMINOPHEN (test code = ACET) < 10 mcg/mL 10-30 L A RANGE OF 10-30 mcg/mL IS A THERAPEUTIC RANGE. TOXIC CONCENTRATIONS: >150 mcg/mL AT 4 HOURS AFTER INGESTION >= 50 mcg/mL AT 12 HOURS AFTER INGESTION [id number] 16:44:00* Test Item Value Reference Range Interpretation Comments SALICYLATE (test code = ALBERTO) 1.8 mg/dL 2.8-20.0 L [id number] 16:44:00* Test Item Value Reference Range Interpretation Comments ALCOHOL (test code = ALC) < 3 mg/dL 0.0-3.0 N -- INTERPRETIVE DATA NOTE: POSITIVE SCREENING RESULTS SHOULD BE CONSIDERED PRESUMPTIVE.WHEN COLLECTED FOR MEDICAL PURPOSES ONLY. SPECIMEN WILL NOTBE COLLECTED BY CHAIN OF CUSTODY.IF A CONFIRMATION OF POSITIVE RESULTS IS DESIRED, ACONFIRMATION TEST MUST BE REQUESTED BY THE PHYSICIAN AT ANADDITIONAL CHARGE TO THE PATIENT. BASIC METABOLIC [id number] 16:34:00* Test Item Value Reference Range Interpretation Comments SODIUM (test code = NA) mmol/L 136-145 POTASSIUM (test code = K) mmol/L 3.5-5.1 CHLORIDE (test code = CL) mmol/L 98-107 CARBON DIOXIDE (test code = CO2) mmol/L 21-32 ANION GAP (test code = GAP) 10-20 GLUCOSE (test code = GLU) mg/dL 74-106 BLOOD UREA NITROGEN (test code = BUN) mg/dL 7-18 GLOMERULAR FILTRATION RATE (test code = GFR) mL/min >=60 CREATININE (test code = CREAT) mg/dL 0.55-1.02 BUN/CREATININE RATIO (test code = BUN/CREA) 10-20 CALCIUM (test code = CA) mg/dL 8.5-10.1 HEPATIC FUNCTION [id number] 16:34:00* Test Item Value Reference Range Interpretation Comments TOTAL PROTEIN (test code = PROT) gram/dL 6.4-8.2 ALBUMIN (test code = ALB) g/dL 3.4-5.0 GLOBULIN (test code = GLOB) gram/dL 2.7-4.2 ALBUMIN/GLOBULIN RATIO (test code = A/G) 0.75-1.50 BILIRUBIN TOTAL (test code = BILT) mg/dL 0.0-1.0 BILIRUBIN DIRECT (test code = BILD) mg/dL 0.0-0.20 SGOT/AST (test code = AST) IUnit/L 15-37 SGPT/ALT (test code = ALT) IUnit/L 12-78 ALKALINE PHOSPHATASE TOTAL (test code = ALKP) IUnit/L 45-117 HCG SERUM [id number] 16:34:00* Test Item Value Reference Range Interpretation Comments HCG SERUM QUAL (test code = HCGQL) NEGATIVE NEGATIVE This HCGQL test is NOT applicable for MALE patients.Check with nurse about probable order error.If Tumor Marker Test needed, nurse should order test "HCGTU"(Test #550.41807) [id number] 16:34:00* Test Item Value Reference Range Interpretation Comments ACETAMINOPHEN (test code = ACET) mcg/mL 10-30 [id number] 16:34:00* Test Item Value Reference Range Interpretation Comments SALICYLATE (test code = ALBERTO) mg/dL 2.8-20.0 [id number] 16:34:00* Test Item Value Reference Range Interpretation Comments ALCOHOL (test code = ALC) mg/dL 0-3 BASIC METABOLIC [id number] 16:34:00* Test Item Value Reference Range Interpretation Comments SODIUM (test code = NA) 139 mmol/L 136-145 N POTASSIUM (test code = K) 3.7 mmol/L 3.5-5.1 N CHLORIDE (test code = CL) 107.0 mmol/L 98-107 N CARBON DIOXIDE (test code = CO2) mmol/L 21-32 ANION GAP (test code = GAP) 10-20 GLUCOSE (test code = GLU) mg/dL 74-106 BLOOD UREA NITROGEN (test code = BUN) mg/dL 7-18 GLOMERULAR FILTRATION RATE (test code = GFR) mL/min >=60 CREATININE (test code = CREAT) mg/dL 0.55-1.02 BUN/CREATININE RATIO (test code = BUN/CREA) 10-20 CALCIUM (test code = CA) mg/dL 8.5-10.1 HEPATIC FUNCTION [id number] 16:34:00* Test Item Value Reference Range Interpretation Comments TOTAL PROTEIN (test code = PROT) gram/dL 6.4-8.2 ALBUMIN (test code = ALB) g/dL 3.4-5.0 GLOBULIN (test code = GLOB) gram/dL 2.7-4.2 ALBUMIN/GLOBULIN RATIO (test code = A/G) 0.75-1.50 BILIRUBIN TOTAL (test code = BILT) mg/dL 0.0-1.0 BILIRUBIN DIRECT (test code = BILD) mg/dL 0.0-0.20 SGOT/AST (test code = AST) IUnit/L 15-37 SGPT/ALT (test code = ALT) IUnit/L 12-78 ALKALINE PHOSPHATASE TOTAL (test code = ALKP) IUnit/L 45-117 HCG SERUM [id number] 16:34:00* Test Item Value Reference Range Interpretation Comments HCG SERUM QUAL (test code = HCGQL) NEGATIVE NEGATIVE This HCGQL test is NOT applicable for MALE patients.Check with nurse about probable order error.If Tumor Marker Test needed, nurse should order test "HCGTU"(Test #550.70346) [id number] 16:34:00* Test Item Value Reference Range Interpretation Comments ACETAMINOPHEN (test code = ACET) mcg/mL 10-30 [id number] 16:34:00* Test Item Value Reference Range Interpretation Comments SALICYLATE (test code = ALBERTO) mg/dL 2.8-20.0 [id number] 16:34:00* Test Item Value Reference Range Interpretation Comments ALCOHOL (test code = ALC) mg/dL 0-3 CBC W/O [id number] 16:23:00* Test Item Value Reference Range Interpretation Comments WHITE BLOOD CELL (test code = WBC) 13.8 K/mm3 4.5-12.5 H RED BLOOD CELL (test code = RBC) 5.13 mill/mm3 3.7-5.2 N HEMOGLOBIN (test code = HGB) 14.3 gram/dL 11.5-15.5 N HEMATOCRIT (test code = HCT) 46.0 % 36.0-46.0 N MEAN CELL VOLUME (test code = MCV) 89.7 fL 80-98 N MEAN CELL HGB (test code = MCH) 27.9 picogram 27.0-33.0 N MEAN CELL HGB CONCETRATION (test code = MCHC) 31.1 gram/dL 33.0-36. 0 L RED CELL DISTRIBUTION WIDTH (test code = RDW) 12.8 % 11.6-16. 2 N PLATELET COUNT (test code = PLT) 417 K/mm3 150-450 N MEAN PLATELET VOLUME (test code = MPV) 9.9 fL 6.7-11.[address] [facility] [address] [place] [id number] Patient Name: AMBROSIO CHILD MR #: [id number] : 1975 Age/Sex: 41/F Req #: [id number] Adm Physician: Ordered by: JUSTINE ZHANG MD Report #: [id number] Location: [place] Room/Bed: Procedure: [id number] NM/HEPTOBILIARY W PHARM Exam Date: 04/11/17 Exam [...] chronic cholecyst itis/gallbladder dyskinesia. Signed by: Dr. Elida Plummer M.D. on 04/11/2017 4 :31 PM Dictated By: ELIDA PLUMMER MD 1631 Transcribed By: ALAN on 04/11/17 1631 COPY TO: JUSTINE ZHANG MD CT ABDOMEN/PELVIS [place] [address] Patient Name: AMBROSIO CHILD MR #: [id number] : 1975 Age/Sex: 41/F Req #: [id number] Adm Physician: Ordered by: BALLARD ANDREW DO Report #: [id number] Location: CT Room/Bed: Procedure: [id number] CT/CT ABDOMEN/PELVIS WO Exam D ate: 12/19/16 [...]
[2019-06-26 10:10] VITALS: BP 100/56
--- NOTE | 2019-06-26 10:23 | Operative Report ---
DATE OF PROCEDURE: 06/26/2019 SURGEON: Herman Brown MD PROCEDURE: EGD with biopsies. INDICATIONS FOR EGD: Upper abdominal pain, nausea, vomiting, history of melena. MEDICATIONS: The patient was done under MAC, please see anesthesiologist's note. PROCEDURE IN DETAIL: With the patient in the left lateral decubitus position, a flexible fiberoptic Olympus gastroscope was introduced into the esophagus under direct visualization without any difficulty. There was some patchy erythema noted in distal esophagus. GE junction was somewhat nodular and that was biopsied. The scope was then advanced with ease into the stomach. Mucosa overlying the antrum and the body revealed some patchy erythema and [id number] edema, and biopsies were obtained and sent to stain for H. pylori. Pylorus was of normal contour and shape, was intubated with ease and the scope was advanced all the way to the second portion of the duodenum. Biopsies were obtained from the proximal second portion and duodenal bulb to rule out sprue. The scope was then withdrawn back into the stomach and retroflexed, and mucosa overlying the fundus and the cardia appeared to be within normal limits. The scope was then straightened out, it was subsequently withdrawn, and the patient tolerated the procedure well. IMPRESSION: 1. Distal esophagitis, mild. 2. Nodular GE junction, biopsied. 3. Gastritis. 4. Rule out sprue. PLAN: Follow up histology. Check celiac panel. Continue AcipHex 20 mg one p.o. before meals b.i.d. and Carafate 1 g p.o. before meals t.i.d. and at bedtime. We will add Reglan 10 mg p.o. before meals t.i.d. and at bedtime if nausea and vomiting recurs. Herman Brown MD [facility] /[id number] cc: Hank Ballard DO
[2019-07-02 23:07] LABS: ENDOMYSIAL ANTIBODIES, IGA Negative (Negative)
== END | disposition home or self-care (01) ==
LOC: OR 06:02
PROVIDERS: ATTEND Internal Medicine Gastroenterology
DX: K29.50 Unspecified chronic gastritis without bleeding (principal); K21.0 Gastro-esophageal reflux disease with esophagitis; K31.89 Other diseases of stomach and duodenum; K28.9 Gastrojejunal ulcer, unspecified as acute or chronic, without hemorrhage or perforation; D64.9 Anemia, unspecified; E66.01 Morbid (severe) obesity due to excess calories; K76.0 Fatty (change of) liver, not elsewhere classified; J45.909 Unspecified asthma, uncomplicated; Z87.01 Personal history of pneumonia (recurrent); I10 Essential (primary) hypertension; E78.5 Hyperlipidemia, unspecified; I83.90 Asymptomatic varicose veins of unspecified lower extremity; R60.9 Edema, unspecified; K90.0 Celiac disease; F95.9 Tic disorder, unspecified; I73.9 Peripheral vascular disease, unspecified; Z88.6 Allergy status to analgesic agent; Z91.041 Radiographic dye allergy status; Z88.0 Allergy status to penicillin; Z91.013 Allergy to seafood; Z01.810 Encounter for preprocedural cardiovascular examination; Z01.812 Encounter for preprocedural laboratory examination; Z11.59 Encounter for screening for other viral diseases; Z79.02 Long term (current) use of antithrombotics/antiplatelets; Z68.41 Body mass index [BMI] 40.0-44.9, adult; Z95.820 Peripheral vascular angioplasty status with implants and grafts
CPT/HCPCS: 36415; 43239; 81025; 82784; 83516; 85025; 86256; 87635; 93005; C9113; J2001; J2250; J2405; J2704; J2765; J3010

== ENCOUNTER 2019-10-16 02:52 | Emergency (ER) | payer BC, OTHER ==
[~2019-10-16] VITALS: Ht 149.9 cm; Wt 83.5 kg
[~2019-10-16 02:52] MED LIST changes: -FENTANYL CITRATE/PF 100MCG/2 ML INJ ONE; -LIDOCAINE HCL 2% LOCAL INJ 5 ML SDV VIAL INJ ONE; -METOCLOPRAMIDE HCL 10 MG/2ML VIAL ONE; -MIDAZOLAM HCL 2 MG/2 ML VIAL ONE; -ONDANSETRON HCL INJ 2MG/ML 2ML 2 MG/ML VIAL ONE; -PANTOPRAZOLE 40 MG 10ML VIAL ONE; -PROPOFOL IV EMULSION 10 MG/ML 20 ML VIAL ONE
[2019-10-16] MEDS ORDERED: ONDANSETRON HCL INJ 2MG/ML 2ML 2 MG/ML VIAL IV STA (03:03)
[2019-10-16] MEDS ORDERED: KETOROLAC TROMETHAMINE 30 MG/ML VIAL IV STA (03:03)
--- NOTE | 2019-10-16 03:18 | Emergency Department Note ---
History of Present Illnes History of Present Illness Chief Complaint: Abdominal Complaints History of Present Illness This is a 44 year old female c/o left flank pain that started with n/v/d. Patient also states pain radiates to left upper and lower quadrant., pt with h/o kidney stones in the past. reports fever at home of 101 yesterday . Historian: Patient Arrival Mode: Car Onset (how long ago): day(s) (4) Location: left flank/abd Quality: pain Radiation: Reports abdomen Severity: moderate Onset quality: sudden Duration (how long): day(s) (4) Timing of current episode: intermittent Progression: waxing and waning Chronicity: new Context: Denies recent illness, Denies recent surgery, Denies trauma/injury Relieving factors: none Exacerbating factors: none Associated symptoms: Reports nausea/vomiting Treatments prior to arrival: none Past Medical/Family History Physician Review I have reviewed the patient's past medical and family history. Any updates have been documented here. Past Medical History Recent Fever: No Clinical Suspicion of Infectio: No New/Unexplained Change in Ment: No Past Medical History: Hypertension, Asthma, Kidney Stones, Hyperlipedemia Other Surgery: OVARIAN CYST REMOVAL. bilateral leg stents Social History Smoking Cessation: Never Smoker Alcohol Use: None Any Illegal Drug Use: No Family History Family history of heart diseas: No Other Last Tetanus: UTD Review of Systems Review of Systems Constitutional: Reports no symptoms EENTM: Reports no symptoms Cardiovascular: Reports no symptoms Respiratory: Reports no symptoms Gastrointestinal: Reports as per HPI Genitourinary: Reports no symptoms Musculoskeletal: Reports no symptoms Integumentary: Reports no symptoms Neurological: Reports no symptoms Psychological: Reports no symptoms Endocrine: Reports no symptoms Hematological/Lymphatic: Reports no symptoms Physical Exam Related Data Allergies: Coded Allergies: Penicillins (Verified Allergy, Unknown, 01/17/17) aspirin (Verified Allergy, Unknown, 01/17/17) codeine (Verified Allergy, Unknown, 01/17/17) grepafloxacin (Verified Allergy, Unknown, 01/17/17) iodine (Verified Allergy, Unknown, ITCHING, 01/15/19) Uncoded Allergies: FISH (Allergy, Unknown, 01/17/17) SULFA (Allergy, Unknown, 01/17/17) Triage Vital Signs Vital Signs Date Time Temp Pulse Resp B/P (MAP) Pulse Ox O2 Delivery O2 Flow Rate FiO2 10/16/19 03:08 98.2 91 20 131/83 98 Room Air Vital signs reviewed: Yes Physical Exam CONSTITUTIONAL Constitutional: Present well-developed, Present well-nourished, Present distressed (mild) HENT HENT: Present normocephalic, Present atraumatic, Present oropharynx clear/moist, Present nose normal HENT L/R: Present left ext ear normal, Present right ext ear normal EYES Eyes: Reports PERRL, Reports conjunctivae normal NECK Neck: Present ROM normal PULMONARY Pulmonary: Present effort normal, Present breath sounds normal CARDIOVASCULAR Cardiovascular: Present regular rhythm, Present heart sounds normal, Present capillary refill normal, Present normal rate GASTROINTESTINAL Abdominal: Present soft, Present bowel sounds normal, Present tender (luq), Present left CVA tenderness (mild) GENITOURINARY Genitourinary: Present exam deferred SKIN Skin: Present warm, Present dry MUSCULOSKELETAL Musculoskeletal: Present ROM normal NEUROLOGICAL Neurological: Present alert, Present oriented x 3, Present no gross motor or sensory deficits PSYCHOLOGICAL Psychological: Present mood/affect normal, Present judgement normal Results Laboratory Laboratory Laboratory Tests Test 10/16/19 03:30 10/16/19 03:15 Urine Color Yellow (YELLOW) Urine Clarity Clear (CLEAR) Urine pH 5 (5 - 7) Urine Specific [place] 1.030 (1.010-1.025) Urine Protein Negative (NEGATIVE) Urine Glucose (UA) Negative (NEGATIVE) Urine Ketones Negative (NEGATIVE) Urine Blood Negative (NEGATIVE) Urine Nitrite Negative (NEGATIVE) Urine Bilirubin Negative (NEGATIVE) Urine Urobilinogen 0.2 mg/dL (0.2 - 1) Urine Leukocyte Esterase Negative (NEGATIVE) Urine RBC 0-5 /HPF (0-5) Urine WBC 6-10 /HPF (0-5) Urine Epithelial Cells Few /LPF (NONE) Urine Bacteria Moderate /HPF (NONE) Urine Test Negative (NEGATIVE) White Blood Count 13.83 x10e3/uL (4.8-10.8) Red Blood Count 4.48 x10e6/uL (3.6-5.1) Hemoglobin 12.3 g/dL (12.0-16.0) Hematocrit 39.0 % (34.2-44.1) Mean Corpuscular Volume 87.1 fL (81-99) Mean Corpuscular Hemoglobin 27.5 pg (28-32) Mean Corpuscular Hemoglobin Concent 31.5 g/dL (31-35) Red Cell Distribution Width 13.2 % (11.7-14.4) Platelet Count 379 x10e3/uL (140-360) Neutrophils (%) (Auto) 66.5 % (38.7-80.0) Lymphocytes (%) (Auto) 24.9 % (18.0-39.1) Monocytes (%) (Auto) 5.8 % (4.4-11.3) Eosinophils (%) (Auto) 1.7 % (0.0-6.0) Basophils (%) (Auto) 0.6 % (0.0-1.0) Neutrophils # (Auto) 9.2 (2.1-6.9) Lymphocytes # (Auto) 3.4 (1.0-3.2) Monocytes # (Auto) 0.8 (0.2-0.8) Eosinophils # (Auto) 0.2 (0.0-0.4) Basophils # (Auto) 0.1 (0.0-0.1) Absolute Immature Granulocyte (auto 0.07 x10e3/uL (0-0.1) Sodium Level 140 mmol/L (136-145) Potassium Level 3.8 mmol/L (3.5-5.1) Chloride Level 107 mmol/L (98-107) Carbon Dioxide Level 18 mmol/L (22-29) Anion Gap 18.8 mmol/L (8-16) Blood Urea Nitrogen 12 mg/dL (7-26) Creatinine 0.90 mg/dL (0.57-1.11) Estimat Glomerular Filtration Rate > 60 ML/MIN (60-) BUN/Creatinine Ratio 13 (6-25) Glucose Level 97 mg/dL (74-118) Calcium Level 8.9 mg/dL (8.4-10.2) Total Bilirubin 0.3 mg/dL (0.2-1.2) Aspartate Amino Transf (AST/SGOT) 32 IU/L (5-34) Alanine Aminotransferase (ALT/SGPT) 47 IU/L (0-55) Alkaline Phosphatase 93 IU/L (40-150) Total Protein 6.9 g/dL (6.5-8.1) Albumin 4.2 g/dL (3.5-5.0) Globulin 2.7 g/dL (2.3-3.5) Albumin/Globulin Ratio 1.6 (0.8-2.0) Amylase Level 75 U/L (25-125) Lipase 38 U/L (8-78) Lab results reviewed: Yes Imaging Imaging results reviewed: Yes Procedures 12 Lead ECG Interpretation ECG Interpretation : ECG: ECG 1 Development Technical Lead: Interpreted by ED physician Date: Oct 16, 2019 Time: 03:02 Rhythm: sinus rhythm Rate: normal BPM: 91 QRS axis: normal ST segments normal: Yes T waves normal: Yes Other findings: no other findings Clinical Impression: normal ECG Assessment & Plan Medical Decision Making MDM pt with left flank and left abdominal pain cbc, cmp, amylase, lipase, ua, ct abd/pelvis ordered to eval for pancreatitis, colitis, diverticulitis, uti, hematuria, kidney stone, toradol 30 mg iv ordered zofran 4 mg iv ordered Assessment & Plan Final Impression: (1) Flank pain Depart Disposition: HOME, SELF-CARE Last Vital Signs Date Time Temp Pulse Resp B/P (MAP) Pulse Ox O2 Delivery O2 Flow Rate FiO2 10/16/19 03:08 98.2 91 20 131/83 98 Room Air Home Meds Reported Medications Azelastine Hcl (AZELASTINE HCL) 6 Ml Drops, NS BID 06/26/19 Cefdinir (OMNICEF) 300 Mg Capsule, 300 MG PO BID, CAP 06/26/19 Cetirizine Hcl (CETIRIZINE HCL) 10 Mg Tablet, 10 MG PO PRN 06/19/19 Ondansetron Hcl* (ZOFRAN*) 4 Mg Tablet, 8 MG PO PRN 06/19/19 Colestipol Hcl,Micronized (COLESTIPOL HCL) 1 Gm Tablet, 1 GM PO BID, #30 TAB 06/19/19 Montelukast Sodium (MONTELUKAST SODIUM) 10 Mg Tablet, 10 MG PO DAILY, #30 TAB 06/19/19 Potassium Chloride (POTASSIUM CHLORIDE) 20 Meq Tab.er.prt, 20 MEQ PO BID 06/19/19 Clopidogrel Bisulfate* (PLAVIX) 75 Mg Tablet, 75 MG PO DAILY, #30 TAB 06/19/19 Metolazone (METOLAZONE) 5 Mg Tablet, 10 MG PO DAILY, #30 TAB 06/19/19 Budesonide/Formoterol Fumarate (SYMBICORT 160-4.5 MCG INHALER) 10.2 Gm Hfa.aer.ad, 2 INH INH BID 06/19/19 Bethanechol Chloride (URECHOLINE) 50 Mg Tablet, 50 MG PO TID 01/15/19 Furosemide (FUROSEMIDE) 20 Mg Tablet, 60 MG PO DAILY 01/15/19 Rabeprazole Sodium (ACIPHEX) 20 Mg Tablet.dr, 1 TAB PO BID THERAPEUTIC INTERCHANGE WITH [facility] 09/24/18 Dicyclomine Hcl (DICYCLOMINE HCL) 20 Mg Tablet, 20 MG PO TID, TAB 09/24/18 Nitrofurantoin Macrocrystal (NITROFURANTOIN) 100 Mg Capsule, 50 MG PO DAILY 09/24/18 Sucralfate (SUCRALFATE) 1 Gm Tablet, 1 GM PO TID, TAB 09/24/18 Tamsulosin Hcl* (FLOMAX*) 0.4 Mg Cap, 0.4 MG PO DAILY, #30 CAP 09/24/18 Albuterol Sulf* (PROAIR HFA INHALER*) 8.5 Gm Inh, 2 INH INH PRN 01/13/17 Medications in the ED Ketorolac Tromethamine 30 mg ONCE STAT IV ; Start 10/16/19 at 03:03; Stop 10/15 at 03:10; Status DC Ondansetron HCl 4 mg NOW STAT IV ; Start 10/16/19 at 03:03; Stop 10/16/19 at 03:06; Status DC RAMY SIGALA MD Oct 16, 2019 03:18
[2019-10-16 03:23] LABS: BASOPHILS # (AUTO) 0.1 (0.0-0.1); BASOPHILS % 0.6 % (0.0-1.0); EOSINOPHILS # (AUTO) 0.2 (0.0-0.4); EOSINOPHILS % 1.7 % (0.0-6.0); HEMOGLOBIN 12.3 g/dL (12.0-16.0); LYMPHOCYTES # (AUTO) 3.4 (1.0-3.2); LYMPHOCYTES % 24.9 % (18.0-39.1); MEAN CORPUSCULAR HEMOGLOBIN 27.5 pg (28-32); MEAN CORPUSCULAR HGB CONC 31.5 g/dL (31-35); MEAN CORPUSCULAR VOLUME 87.1 fL (81-99); MONOCYTES # (AUTO) 0.8 (0.2-0.8); MONOCYTES % 5.8 % (4.4-11.3); NEUTROPHILS # (AUTO) 9.2 (2.1-6.9); NEUTROPHILS % 66.5 % (38.7-80.0); PLATELET COUNT 379 x10e3/uL (140-360); RED BLOOD COUNT 4.48 x10e6/uL (3.6-5.1); RED CELL DISTRIBUTION WIDTH 13.2 % (11.7-14.4)
[2019-10-16 03:42] LABS: AMYLASE 75 U/L (25-125); LIPASE 38 U/L (8-78)
[2019-10-16 03:43] LABS: BILIRUBIN,URINE NEGATIVE (NEGATIVE); CLARITY,URINE CLEAR (CLEAR); COLOR,URINE YELLOW (YELLOW); KETONES,URINE NEGATIVE (NEGATIVE); LEUKOCYTE ESTERASE ,URINE NEGATIVE (NEGATIVE); NITRITE,URINE NEGATIVE (NEGATIVE); PROTEIN,URINE DIPSTICK NEGATIVE (NEGATIVE); URINE UROBILINOGEN 0.2 mg/dL (0.2 - 1)
[2019-10-16 03:46] LABS: ALANINE AMINOTRANSFERASE 47 IU/L (0-55); ALBUMIN 4.2 g/dL (3.5-5.0); ALBUMIN/GLOBULIN RATIO 1.6 (0.8-2.0); ALKALINE PHOSPHATASE 93 IU/L (40-150); ANION GAP 18.8 mmol/L (8-16); BLOOD UREA NITROGEN 12 mg/dL (7-26); BUN/CREATININE RATIO 13 (6-25); CALCIUM 8.9 mg/dL (8.4-10.2); CARBON DIOXIDE 18 mmol/L (22-29); CHLORIDE 107 mmol/L (98-107); EST GLOMERULAR FILTRATION RATE > 60 ML/MIN (60-); GLUCOSE 97 mg/dL (74-118); POTASSIUM 3.8 mmol/L (3.5-5.1); SODIUM 140 mmol/L (136-145)
[2019-10-16 03:49] LABS: BACTERIA,URINE MODERATE /HPF; EPITHELIAL CELLS,URINE FEW /LPF; RBC,URINE 0-5 /HPF (0-5)
--- NOTE | 2019-10-16 04:51 | Diagnostic Imaging Report ---
EXAM: CT Abdomen and Pelvis WITHOUT contrast INDICATION: Left flank pain COMPARISON: Abdominal CT 02/21/2019. TECHNIQUE: Abdomen and pelvis were scanned utilizing a multidetector helical scanner from the lung base to the pubic symphysis without administration of IV contrast. Absence of intravenous contrast decreases sensitivity for detection of focal lesions and vascular pathology. Coronal and sagittal reformations were obtained. Routine protocol was performed. IV CONTRAST: None ORAL CONTRAST: None COMPLICATIONS: None RADIATION DOSE: Total DLP: 687 mGy*cm Estimated effective dose: (DLP x 0.015 x size factor) mSv CTDIvol has been reviewed. It is below the limits set by the Radiation Protocol Committee (RPC). Dose modulation, iterative reconstruction, and/or weight based adjustment of the mA/kV was utilized to reduce the radiation dose to as low as reasonably achievable. FINDINGS: LINES and TUBES: None. LOWER THORAX: Unremarkable HEPATOBILIARY: Enlarged hypodense liver. No focal hepatic lesions. No biliary ductal dilation. GALLBLADDER: There are cholecystectomy clips. SPLEEN: No splenomegaly. PANCREAS: No focal masses or ductal dilatation. ADRENALS: No adrenal nodules KIDNEYS/URETERS: No hydronephrosis. No cystic or solid mass lesions. No stones. GI TRACT: No abnormal distention, wall thickening, or evidence of bowel obstruction. Appendix has been removed. PELVIC ORGANS/BLADDER: Unremarkable. LYMPH NODES: No lymphadenopathy. VESSELS: Iliocaval stents. Minimal arterial calcifications.. PERITONEUM / RETROPERITONEUM: No free air or fluid. BONES: Degenerative changes. SOFT TISSUES: Unremarkable. IMPRESSION: Hepatomegaly with hepatic steatosis. Signed by: Santos Balderas DO on 10/16/2019 4:48 AM
--- OUTSIDE RECORDS SUMMARY | 2019-10-16 05:04 | XMS REPORT | Clinical Summary ---
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
--- OUTSIDE RECORDS SUMMARY | 2019-10-16 05:04 | XMS REPORT | Continuity of Care Document ---
Author Author Partha Samuels [facility] AMBROSIO [facility] Organization [employer] Address Unknown Phone Unavailable Care Team Providers Care Co Founder & Ceo Name Role Phone [employer] Unavailable Un available Problems Problem Status Onset Date Classification Date Reported Comments Source G35 = MULTIPLE SCLEROSIS Active 05/19/2016 [place] [address].50 - CHEST PAIN NOS Active 06/19/2013 [facility] Medications No Data Provided for This Section Allergies, Adverse Reactions, Alerts No Known Medication Allergies Immunizations No Data Provided for This Section Results Order Name Results Value Reference Range Date Interpretation Comments Source BODY FLUIDS Color CSF Daykin rless (05/25/16 9:01 AM) Colorless 05/25/2016 [facility] BODY FLUIDS Clarity CSF Magy r (05/25/16 9:01 AM) Clear 05/25/2016 [facility] BODY FLUIDS Supernat CSF Daykin rless (05/25/16 9:01 AM) Colorless 05/25/2016 [facility] BODY FLUIDS WBC CSF 0 0 - 53 05/25/2016 [facility] BODY FLUIDS RBC CSF 1 0 - 03 05/25/2016 [facility] FLUIDS Tube Num CSF 4 05/25/2016 [facility] BODY FLUIDS Glucose CSF 57 45 - 80 05/25/2016 [facility] BODY FLUIDS Protein CSF 43 15 - 45 05/25/2016 [facility] MYELIN BASIC PROT CSF 1.1 0.0 - 1.2 05/25/2016 Result Comment: Results for this test ar e for research purposes only by the
assay's digital marketing officer. The performance characteristics of
this product have not been established. Results should not
be used as a diagnostic procedure without confirmation of
the diagnosis by another medically established diagnostic
product or procedure.
Performed At: [facility]
[address], [place] [id number]
Jay Fuentes MD Ph:[phone] [facility] IgG Lvl CSF <35.0 2.0 - 4.0 05/25/2016 [facility] IgG Lvl CSF 2.4 2.0 - 4.0 05/25/2016 [facility] Alb CSF (CPE) 26.3 14.0 - 25.0 05/25/2016 [facility] IMMUNOLOGY Alb (CPE) 3900.0 05/25/2016 [facility] IMMUNOLOGY IgG (CPE) 751 694 - 1618 05/25/2016 [facility] IgG Index 0.5 0.3 - 0.7 05/25/2016 [facility] URINE CHEM U Preg Negat maribel (05/25/16 8:18 AM) Negative 05/25/2016 [facility] Pathology Reports No Data Provided for This Section Diagnostic Reports Report Value Date Source Retroperitoneal Complete US EX AM: US RETROPERITONEAL COMPLETE DATE: 01/06/2017 8:27 AM 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 Lower back [...] visualized, likely from steatosis (fatty infiltration). 01/06/2017 [facility] Spine lumbar puncture w fluoro DX Patient Name: AMBROSIO CHILD : 1975; Age: 40 years y/o Female MR: [id number] Study: Spine lumbar puncture w fluoro DX [...] None. IMPRESSION: Fluoroscopically guided lumbar puncture. SL: [id number] 05/25/2016 [facility] Small bowel series DX EXAMINAT ION: Small Bowel Follow-Through HISTORY: Abdominal pain; food intolerance COMPARISON: None. TECHNIQUE: After a md ophthalmologist radiograph was obtained, the patient was given barium to drink and multiple fluoroscopic and conventional overhead radiographs of the stomach, duodenum, and small bowel were obtained. FINDINGS: Product Support Representative radiograph demonstrates a normal bowel gas pattern [...] small bowel f ollow-through examination. 01/13/2014 [facility] Chest 2 views CHEST RADIOGRAPH Y CLINICAL HISTORY: Chest pain. COMPARISON IMAGING: None. FINDINGS: Two views of the chest were acquired and submitted for evaluation. No pleural fluid is identified. The contour of the cardiac silhouette is within normal limits. There is no significant pulmonary consolidation or nodularity. Bones are unremarkable. IMPRESSION: No significant abnormality. 06/19/2013 [facility] Consultation Notes No Data Provided for This Section Discharge Summaries No Data Provided for This Section History and Physicals No Data Provided for This Section Vital Signs No Data Provided for This Section Encounters Location Location Details Encounter Type Encounter Number Reason For Visit Attending Provider ADM Date DC Date Status Source [facility] [place] [facility] [id number] Brian Eliu 06/19/2013 06/20/[address] [facility] [place] [place] [facility] [id number] Damon Xavi 01/13/2014 01/14/2014 [facility] Outpatient [id number] Frankie Regan 05/25/2016 05/26/2016 [facility] [place] [facility] [id number] Brennan Julianne 01/06/2017 01/07/2017 [facility] [place] Procedures No Data Provided for This Section Assessment and Plan No Data Provided for This Section Plan of Care No Data Provided for This Section Social History Social History Date Source No data available for this section 01/07/2017 [facility] [place] No data available for this section 05/26/2016 [facility] Family History No Data Provided for This Section Advance Directives No Data Provided for This Section Functional Status No Data Provided for This Section
--- OUTSIDE RECORDS SUMMARY | 2019-10-16 05:05 | XMS REPORT | Continuity of Care Document ---
Author Author [facility] t Organization [facility] Address [address] 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 50 - CHEST PAIN NOS Active 06/19/2013 ANDREW [facility] Active 2013-06-19 00:01:00 2013-06-19 16:27:00 [facility] Allergies, Adverse Reactions, Alerts Allergy Name Allergy Type Status Severity Reaction(s) Onset Date Inacti ve Date Treating Clinician Comments Source codeine DA Active SV 2018-04-24 00:00:00 [facility] Iodinated Contrast Media DA Active SV 2018-03-19 00:00:00 [facility] Penicillins DA Active U 2018-03-19 00:00:00 [facility] Sulfa (Sulfonamide Antibiotics) DA Active U 2018-03-19 00 :00:00 [facility] aspirin DA Active U 2018-03-19 00:00:00 [facility] fish oil FA Active U 2018-03-19 00:00:00 [facility] fish oil DA Active U 2018-03-19 00:00:00 [facility] Codeine Propensity to adverse reactions to drug Active 2017-09-14 00:00:00 [facility] Fish Oil Propensity to adverse reactions to drug Active 2017-09-14 00:00:00 [facility] Luke Penicillins Propensity to adverse reactions to drug Active 2017-09-14 00:00:00 Orlando salgado Sulfa (Sulfonamide Antibiotics) Propensity to adverse reactions to drug Active 2017-09-14 00:00:00 Nehemias Luke Iodinated Contrast- Oral and IV Dye DA Active SV 2016-12-08 4 00:00:00 [facility] Penicillins DA Active U 2016-12-30 00:00:00 [facility] Sulfa (Sulfonamide Antibiotics) DA Active U 2016-12-30 00 :00:00 [facility] aspirin DA Active U 2016-12-30 00:00:00 [facility] fish oil DA Active U 2016-12-30 00:00:00 [facility] Social History Social Habit Start Date Stop Date Quantity Comments Source Sex Assigned At [facility] Alcohol intake 2017-09-14 00:00:00 2017-09-14 00:00:00 Current non-drinker of alcohol (finding) [facility] Luke Social History 2016-05-26 04:59:00 2016-05-26 04:59:00 [facility] Smoking Status Start Date Stop Date Source Never smoker Orlando salgado Medications Ordered Medication Name Filled Medication Name Start Date Stop Da te Current Medication? Ordering Clinician Indication Dosage Frequency Signature (SIG) Comments Components Source hydroCHLOROthiazide (HYDRODIURIL) 12.5 MG tablet 2017-09-18 20:48:12 Yes 12.5mg QD Take 12.5 mg by mouth daily. Orlando Luke ergocalciferol (VITAMIN D2) 50,000 unit capsule 2017-09-18 20:48 :12 Yes 24640T Q7D Take 50,000 Units by mouth once a week. Orlando Luke potassium gluconate 595 mg (99 mg) tablet 2017-09-18 20:48:12 Yes 1{tbl} Take 1 tablet by mouth daily. Orlando Luke albuterol (ACCUNEB) 0.63 mg/3 mL nebulizer solution 09-18 20:48:12 Yes 1{ampule} Q6H Take 1 ampule by nebulization every 6 (six) hours as needed for wheezing. Orlando Luke acetaminophen (TYLENOL) 325 MG tablet 2017-09-18 20:48:12 Y es 325mg Q6H Take 325 mg [...] Date Details Comments Source Future Scheduled Test 2019-11-07 00:00:00 INFLUENZA VACCINE [code = INFLUENZA VACCINE] Orlando Luke Future Scheduled Test 1998 00:00:00 Screening for josé antonio gnant neoplasm of cervix (procedure) [code = 406924457] Orlando salgado Encounters Start Date/Time End Date/Time Encounter Type Admission Type [facility] Care Department Encounter ID Source 2017-01-06 07:57:00 2017-01-06 23:59:00 Outpatient Radha Whitaker MHOIB MHOIB [id number] 2016-05-25 07:24:00 2016-05-25 23:59:00 Outpatient Frankie Regan MHSE MHSE [id number] 2014-01-13 10:38:00 2014-01-13 23:59:00 Outpatient Damon Hurley IE IE [id number] 2013-06-19 15:47:00 2013-06-19 23:59:00 Outpatient Brian Nowak IE IE [id number] Results Test Description Test Time Test Comments Results Result Comments Source CT ABDOMEN/PELVIS WO 2019-10-16 04:34:00 [place] [address] Patient Name: AMBROSIO CHILD MR #: [id number] : 1975 Age/Sex: 44/F Req #: [id number] Adm Physician: Ordered by: RAMY SIGALA MD Report #: [id number] Location: ER Room/Bed: Procedure: CT/CT ABDOMEN/PELVIS WO Exam Date: 10/16/19 Exam Time: 0350 REPORT STATUS: Signed EXAM: CT Abdomen and Pelvis WITHOUT contrast INDICATION: Left flank pain COMPARISON: Abdominal CT 02/21/2019. TECHNIQUE: Abdomen and pelvis were scanned utilizing a multidetector helical scanner from the lung base to the pubic symphysis without administration of IV contrast. Absence of intravenous contrast decreases sensitivity for detection of focal lesions and vascular pathology. Coronal and sagittal reformations were obtained. Routine protocol was performed. IV CONTRAST: None ORAL CONTRAST: None COMPLICATIONS: None RADIATION DOSE: Total DLP: 687 mGy*cm Estimated effective dose: (DLP x 0.015 x size factor) mSv CTDIvol has been reviewed. It is below the limits set by the Radiation Protocol Committee (RPC). Dose modulation, iterative reconstruction, and/or weight based adjustment of the mA/kV was utilized to reduce the radiation dose to as low as reasonably achievable. FINDINGS: LINES and TUBES: None. LOWER THORAX: Unremarkable HEPATOBILIARY: Enlarged hypodense liver. No focal hepatic lesions. No biliary ductal dilation. GALLBLADDER: There are cholecystectomy clips. SPLEEN: No splenomegaly. PANCREAS: No focal masses or ductal dilatation. ADRENALS: No adrenal nodules KIDNEYS/URETERS: No hydronephrosis. No cystic or solid mass lesions. No stones. GI TRACT: No abnormal distention, wall thickening, or evidence of bowel obstruction. Appendix has been removed. PELVIC ORGANS/BLADDER: Unremarkable. LYMPH NODES: No lymphadenopathy. VESSELS: Iliocaval stents. Minimal arterial calcifications.. PERITONEUM / RETROPERITONEUM: No free air or fluid. BONES: Degenerative changes. SOFT TISSUES: Unremarkable. IMPRESSION: Hepatomegaly with hepatic steatosis. Signed by: Santos Hogue DO on 10/16/2019 4:48 AM Dictated By: SANTOS HOGUE DO 7 Transcribed By: ALAN on 10/16/19447 COPY TO: RAMY SIGALA MD Novel Coronavirus 2019 Inhouse 2019-08-31 16:03:00 Test Item Novel Coronavirus 2019 Inhouse (test code = COVNONPUI) Negative Negative Novel Coronavirus 2019 [id number] 16:02:00* Test Item Value Reference Range Interpretation Comments Novel Coronavirus 2019 Inhouse (test code = COVNONPUI) Negative Negative STREPTOCOCCUS PCR [id number] 05:57:00* Test Item Value Reference Range Interpretation Comments STREPTOCOCCUS DYSGALACTIAE (test code = STREPGC) NEGATIVE FOR G/C N EGATIVE STREPA MOLECULAR (test code = STREPAMOL) NEGATIVE FOR GRP A NEGATIV E B-TYPE NATRIURETIC [id number] 20:13:00* Test Item Value Reference Range Interpretation Comments B-TYPE NATRIURETIC PEPTIDE (test code = BNP) 2.80 pgram/mL 0-100 N - XR CHEST 1 [id number] 19:58:00 FAX: Richardson Lopes MD [phone] [place]: St: REG Name: AMBROSIO GARCES [facility] : [birth year] Age/S: 44/F [address] [facility] Unit #: [id number] Loc: [place] [address] Phys: Richardson Lopes MD Acct: [id number] Dis Date: Status: REG ER PHONE #: [phone] Exam Date: 08/01/2019 1855 FAX #: [phone] Reason: Shortness of Breath EXAMS: CPT CODE: [id number] XR CHEST 1 V 19163 EXAM: Chest X-ray, 1 view; CLINICAL HISTORY: Fever and shortness of breath; FINDINGS: The lungs are clear, no infiltrates, no edema; no effusions; no pn eumothorax; normal cardiomediastinal silhouette. IMPRESSIO N: Normal chest x-ray. Location code: [facility] at 1957 Reported and signed by: Pasha Beltran M.D. CC: Richardson Lopes MD Technologist: AMBROSE AARON, RT(R) Trnscrd Date/Time/By: 08/01/2019 (1957) : By: Leslee Orig Print D/T: S: 08/01/2019 (2000) PAGE 1 Signed Report URINALYSIS COMPLETE 2019-08-01 19:53:00* Test Item Value Reference Range Interpretation Comments UA COLOR (test code = COLU) COLORLESS YELLOW A UA APPEARANCE (test code = APPU) CLEAR CLEAR UA GLUCOSE DIPSTICK (test code = DGLUU) NEGATIVE mg/dL NEGATIVE UA BILIRUBIN DIPSTICK (test code = BILU) NEGATIVE mg/dL NEGATIVE UA KETONE DIPSTICK (test code = KETU) NEGATIVE mg/dL NEGATIVE UA SPECIFIC GRAVITY (test code = SGU) 1.005 1.001-1.035 UA BLOOD DIPSTICK (test code = PHOEBE) 0.2 mg/dL (2+) mg/dL NEGATIVE A UA PH DIPSTICK (test code = ITA) 5.0 5.0-8.0 UA PROTEIN DIPSTICK (test code = PROU) NEGATIVE mg/dL NEGATIVE UA UROBILINIOGEN DIPSTICK (test code = URO) Normal mg/dL NEGATIVE UA NITRITE DIPSTICK (test code = EVARISTO) NEGATIVE NEGATIVE UA LEUKOCYTE ESTERASE W REFLEX (test code = LEUUR) 75 Simone/uL (1+) Simone/uL NEGATIVE A UA WBC (test code = WBCU) 6-10 per HPF 0-5 A UA RBC (test code = RBCU) 0-2 #/HPF 0-5 UA WBC CLUMPS (test code = WBCUCL) 3-6 /HPF NONE A UA EPITHELIAL CELLS (test code = EPIU) FEW per HPF FEW UA BACTERIA (test code = BACU) FEW #/HPF NONE A UA MUCUS (test code = MUCU) FEW #/LPF FEW Urine Source? Clean CatchBASIC METABOLIC [id number] 19:51:00* Test Item Value Reference Range Interpretation Comments SODIUM (test code = NA) 139 mmol/L 136-145 N POTASSIUM (test code = K) 4.3 mmol/L 3.5-5.1 N CHLORIDE (test code = CL) 105.0 mmol/L 98-107 N CARBON DIOXIDE (test code = CO2) 23.0 mmol/L 21-32 N ANION GAP (test code = GAP) 15.3 10-20 N GLUCOSE (test code = GLU) 104 mg/dL 74-106 N BLOOD UREA NITROGEN (test code = BUN) 14 mg/dL 7-18 N GLOMERULAR FILTRATION RATE (test code = GFR) > 60 mL/min >=60 Estimated GFR by using Modified MDRD formula.Chronic kidney disease is defined as either kidney damageor GFR <60 mL/min/1.73 m2 for >3 months. CREATININE (test code = CREAT) 1.00 mg/dL 0.55-1.02 N Note change in reference range due to change in reagent. BUN/CREATININE RATIO (test code = BUN/CREA) 14.0 10-20 N CALCIUM (test code = CA) 9.6 mg/dL 8.5-10.1 N [id number] 19:51:00* Test Item Value Reference Range Interpretation Comments TROPONIN-I (test code = TROPI) <0.015 ng/mL 0-0.045 N BASIC METABOLIC [id number] 19:43:00* Test Item Value Reference Range Interpretation Comments SODIUM (test code = NA) 139 mmol/L 136-145 N POTASSIUM (test code = K) 4.3 mmol/L 3.5-5.1 N CHLORIDE (test code = CL) 105.0 mmol/L 98-107 N CARBON DIOXIDE (test code [...] CALCIUM (test code = CA) mg/dL 8.5-10.1 [id number] 19:43:00* Test Item Value Reference Range Interpretation Comments TROPONIN-I (test code = TROPI) ng/mL 0-0.045 Coronavirus 2019 nCoV [id number] 19:33:00* Test Item Value Reference Range Interpretation Comments Coronavirus 2019 nCoV Bedside (test code = COVNONPUIBED) Negative Is patient requiring admission or transfer? YIndication for rapid COVID-19 testi ng: Emergent [id number] 19:32:00* Test Item Value Reference Range Interpretation Comments D-DIMER (test code = DDIMER) 166.00 ng/mLFEU 0-500 N Clinical Cut-off value for D-Dimer is 500 ng/mL FEU. Comment: The [employer] D-Dimer assay is intended for use asan aid in the diagnosis of venous thromboembolism (VTE)[deep vein thrombosis (DVT) or pulmonary embolism (PE)].The measurement of D-Dimer should not be used as an aid inthe diagnosis of VTE, in patient with: -Therapeutic dose anticoagulant therapy for >24 hours -Fibrinolytic therapy within previous 7 days -Trauma or surgery within previous 4 weeks -Disseminated malignancies -Aortic aneurysm -Sepsis, severe infections, pneumonia, severe skin infections -Liver cirrhosis - CBC W/O [id number] 19:25:00* Test Item Value Reference Range Interpretation Comments WHITE BLOOD CELL (test code = WBC) 11.7 K/mm3 4.5-12.5 N RED BLOOD CELL (test code = RBC) 4.99 mill/mm3 3.7-5.2 N HEMOGLOBIN (test code = HGB) 14.1 gram/dL 11.5-15.5 N HEMATOCRIT (test code = HCT) 43.5 % 36.0-46.0 N MEAN CELL VOLUME (test code = MCV) 87.2 fL 80-98 N MEAN CELL HGB (test code = MCH) 28.3 picogram 27.0-33.0 N MEAN CELL HGB CONCETRATION (test code = MCHC) 32.4 gram/dL 33.0-36. 0 L RED CELL DISTRIBUTION WIDTH (test code = RDW) 13.1 % 11.6-16. 2 N PLATELET COUNT (test code = PLT) 485 K/mm3 150-450 H MEAN PLATELET VOLUME (test code = MPV) 9.8 fL 6.7-11.0 N CBC W/O [id number] 19:19:00* Test Item Value Reference Range Interpretation Comments WHITE BLOOD CELL (test code = WBC) K/mm3 4.5-12.5 RED BLOOD CELL (test code = RBC) mill/mm3 3.7-5.2 HEMOGLOBIN (test code = HGB) 14.1 gram/dL 11.5-15.5 N HEMATOCRIT (test code = HCT) 43.5 % 36.0-46.0 N MEAN CELL VOLUME (test code = MCV) fL 80-98 MEAN CELL HGB (test code = MCH) picogram 27.0-33.0 MEAN CELL HGB CONCETRATION (test code = MCHC) gram/dL 33.0-36. 0 RED CELL DISTRIBUTION WIDTH (test code = RDW) % 11.6-16. 2 PLATELET COUNT (test code = PLT) K/mm3 150-450 MEAN PLATELET VOLUME (test code = MPV) fL 6.7-11.0 [id number] 09:38:00* Test Item Value Reference Range Interpretation Comments [id number] (test code = UWYLK14Qrbdhjmv) Negative [facility] this entry is for TRACKING purposes only and the testwas done outside [facility], the performing entity isfound in specimen comments. [id number] 12:43:00* Test Item Value Reference Range Interpretation Comments HZFWI26Bljsztfr (test code = XBZYB63Jmqcdypj) Negative Negative Note: this entry is for TRACKING purposes only and the testwas done outside [facility], the performing entity isfound in specimen comments. Novel Coronavirus [id number] 22:43:00* Test Item Value Reference Range Interpretation Comments Novel Coronavirus 2019 nCoV (test code = COVID19) NEGATIVE NOT DETECT. Testing Criteria: Fever & Resp S/S w/AdmitCARDIAC ENZYMES [id number] 13:20:00* Test Item Value Reference Range Interpretation Comments CREATINE KINASE (CK) (test code = CK) 91 Units/L 26-192 N TROPONIN-I (test code = TROPI) <0.02 NG/ML 0.00-0.06 N REFERENCE RANGE TROPONIN I HEALTHY INDIVIDUALS: <0.06 ng/mL R/O ISCHEMIA: 0.07 - 0.60 ng/mL CUT-OFF RANGE FOR AMI: 0.60 - 1.5 ng/mL - XR CHEST 1 [id number] 08:15:00 FAX: Merlene Araya MD [phone] [place]: St: [facility] FAX: Joyce Ladd [phone] Name: AMBROSIO CHILD [facility] : 1975 Age/S: 43/F [address] [facility] Unit #: [id number] Loc: [address] [place], [place]: [place] [address] Acct: [id number] Dis Date: Status: ADM IN PHONE #: [phone] Exam Date: 05/03/2019811 FAX #: [phone] Reason: ADMISSION SOB EXAMS: CPT CODE: [id number] XR CHEST 1 V 11063 EXAM: - XR CHEST 1 V LOCATION: [...] MD; Jenise Ricardo MD Technologist: [facility] CORONEL [facility] Date/Time/By: 05/03/2019 (08) : By: [email or web address] PAGE 1 Signed Report FAX: Merlene Aryaa MD [phone] [place]: St: ADM FAX: Joyce Ladd ----- Name: DANYELLAMBROSIO [facility] : 1975 Age/S: 43/F [address] [facility] Unit #: [id number] Loc: [address] [place], [place]: [place] [address] Acct: [id number] Dis Date: Status: ADM IN PHONE #: [phone] Exam Date: 05/03/2019 0812 FAX #: [phone] Reason: ADMISSION SOB EXAM S: CPT CODE: [id number] XR EDA ST 1 V 87449 <Continued> Orig Print D/T: S: 05/03/2019 (3050) PAGE 2 Signed Report CARDIAC ENZYMES [id number] 07:05:00* Test Item Value Reference Range Interpretation Comments CREATINE KINASE (CK) (test code = CK) 97 Units/L 26-192 N TROPONIN-I (test code = TROPI) <0.02 NG/ML 0.00-0.06 N REFERENCE RANGE TROPONIN I HEALTHY INDIVIDUALS: <0.06 ng/mL R/O ISCHEMIA: 0.07 - 0.60 ng/mL CUT-OFF RANGE FOR AMI: 0.60 - 1.5 ng/mL URINALYSIS [id number] 06:49:00* Test Item Value Reference Range Interpretation [...] (test code = YEASTU) MANY NEGATIVE URINALYSIS [id number] 06:44:00* Test Item Value Reference Range Interpretation [...] (test code = BACU) NONE CBC W/AUTO [id number] 03:11:00* Test Item Value Reference Range Interpretation [...] (test code = PLTEST) INCREASED COMPREHENSIVE METABOLIC [id number] 02:10:00* Test Item Value Reference Range Interpretation [...] 98 Units/L 50.0-136 .0 N CARDIAC ENZYMES [id number] 02:09:00* Test Item Value Reference Range Interpretation Comments CREATINE KINASE (CK) (test code = CK) 92 Units/L 26-192 N TROPONIN-I (test code = TROPI) <0.02 NG/ML 0.00-0.06 N REFERENCE RANGE TROPONIN I HEALTHY INDIVIDUALS: <0.06 ng/mL R/O ISCHEMIA: 0.07 - 0.60 ng/mL CUT-OFF RANGE FOR AMI: 0.60 - 1.5 ng/mL CBC W/AUTO [id number] 01:48:00* Test Item Value Reference Range Interpretation [...] BA#) 0.0 K/mm3 0.0-0.2 N STREPTOCOCCUS PCR [id number] 00:40:00* Test Item Value Reference Range Interpretation Comments STREPTOCOCCUS DYSGALACTIAE (test code = STREPGC) NEGATIVE FOR G/C N EGATIVE STREPA MOLECULAR (test code = STREPAMOL) NEGATIVE FOR GRP A NEGATIV E LACTIC [id number] 17:52:00* Test Item Value Reference Range Interpretation Comments LACTIC ACID (test code = LACT) 1.9 mmol/L 0.4-1.9 N NEEDEDURINALYSIS [id number] 17:48:00* Test Item Value Reference Range Interpretation [...] Urine Source? Clean Catch- XR CHEST 1 [id number] 15:46:00 FAX: Jaqui Barrientos [phone] [place]: St: REG Name: AMBROSIO GARCES [facility] : [birth year] Age/S: 43/F [address] [facility] Unit #: [id number] Loc: [place] [address] Phys: Jaqui Manzanares MD Acct: [id number] Dis Date: Status: REG ER PHONE #: [phone] Exam Date: 05/02/2019 1540 FAX #: [phone] Reason: CODE SEPSIS EXAMS: CPT CODE: [id number] XR CHEST 1 V 32683 HISTORY: CODE SEPSIS, shortness of breath TECHNIQUE: AP chest x-ray COMPARISON: 04/22/18 FINDINGS: Low lung volumes. No airspace consolidat ion or pleural effusion. Mild cardiomegaly. Mediastinal silhouette is unre markable. Thoracic spondylosis. IMPRESSION: No radiographic evidence of acute cardiopulmonary process. LOCATION: at 1546 Reported and signed by: Jayde Ramsey D.O. CC: Jaqui Manzanares MD Technologist: LAI BURKETT Trnscrd Date/Time/By: 05/02/2019 (5219) : By: [email or web address] Orig Print D/T: S: 05/02/2019 (1543) PAGE 1 Signed Report B-TYPE NATRIURETIC [id number] 15:42:00* Test Item Value Reference Range Interpretation Comments B-TYPE NATRIURETIC PEPTIDE (test code = BNP) 1.97 pgram/mL 0-100 N LACTIC [id number] 15:15:00* Test Item Value Reference Range Interpretation Comments LACTIC ACID (test code = LACT) 2.2 mmol/L 0.4-1.9 HH Results called to by V.LAB.QD 05/02/19 1514Critical results verified and read back by Nurse? YES BASIC METABOLIC [id number] 15:14:00* Test Item Value Reference Range Interpretation [...] CA) 9.0 mg/dL 8.5-10.1 N HEPATIC FUNCTION [id number] 15:14:00* Test Item Value Reference Range Interpretation [...] reference range due to change in reagent. [id number] 15:14:00* Test Item Value Reference Range Interpretation Comments LIPASE (test code = LIP) 129 U/L 73.0-393.0 N HCG SERUM [id number] 15:14:00* Test Item Value Reference Range Interpretation Comments HCG SERUM QUAL (test code = HCGQL) NEGATIVE NEGATIVE This HCGQL test is NOT applicable for MALE patients.Check with nurse about probable order error.If Tumor Marker Test needed, nurse should order test "HCGTU"(Test #550.01967) [id number] 15:14:00* Test Item Value Reference Range Interpretation Comments TROPONIN-I (test code = TROPI) <0.015 ng/mL 0-0.045 N BASIC METABOLIC [id number] 15:05:00* Test Item Value Reference Range Interpretation [...] code = CA) mg/dL 8.5-10.1 HEPATIC FUNCTION [id number] 15:05:00* Test Item Value Reference Range Interpretation [...] TOTAL (test code = ALKP) IUnit/L 45-117 [id number] 15:05:00* Test Item Value Reference Range Interpretation Comments LIPASE (test code = LIP) U/L 73.0-393.0 HCG SERUM [id number] 15:05:00* Test Item Value Reference Range Interpretation Comments HCG SERUM QUAL (test code = HCGQL) NEGATIVE NEGATIVE This HCGQL test is NOT applicable for MALE patients.Check with nurse about probable order error.If Tumor Marker Test needed, nurse should order test "HCGTU"(Test #550.11494) [id number] 15:05:00* Test Item Value Reference Range Interpretation Comments TROPONIN-I (test code = TROPI) ng/mL 0-0.045 PROTHROMBIN [id number] 15:03:00* Test Item Value Reference Range Interpretation [...] (2.5-3.5) IS PATIENT ON ANTICOAGULANTS? NTHROMBOPLASTIN TIME [id number] 15:03:00* Test Item Value Reference Range Interpretation Comments THROMBOPLASTIN TIME PARTIAL (test code = PTT) 32.8 seconds 25.0-36. 5 N IS PATIENT ON ANTICOAGULANTS? NCBC W/AUTO [id number] 14:50:00* Test Item Value Reference Range Interpretation [...] (test code = MDIFF) NO CBC W/AUTO [id number] 14:44:00* Test Item Value Reference Range Interpretation [...] code = BA#) K/mm3 0.0-0.2 CT ABDOMEN/PELVIS [id number] 12:00:00 [facility] [address] [place], [place] [address] Patient Name: AMBROSIO CHILD MR #: [id number] : 1975 Age/Sex: 43/F Req #: [id number] Adm Physician: Ordered by: JUSTINE ZHANG MD Report #: [id number] Location: CT Room/Bed: Procedure: 8530-5996 CT /CT ABDOMEN/PELVIS W Exam Date: 02/21/19 [...] MD 121 Transcribed By: ALAN on 02/21/19 121 COPY TO: JUSTINE ZHANG MD CT ABDOMEN/PELVIS [id number] 16:15:00 [place] [address] Patient Name: AMBROSIO CHILD MR #: [id number] : 1975 Age/Sex: 43/F Req #: [id number] Adm Physician: Ordered by: COLE BALLARD DO Report #: [id number] Location: [employer] [facility] Room/Bed: Procedure: 7996-1871 C T/CT ABDOMEN/PELVIS WO Exam Date: Exam [...] BACA MD 19 Transcribed By: ALAN on 01/17/191619 COPY TO : COLE BALLARD DO CTA ABD/PEL/RUN [id number] 17:09:00 [place] [address] Patient Name: AMBROSIO CHILD MR #: [id number] : 1975 Age/Sex: 43/F Req #: [id number] Adm Physician: Ordered by: COLE BALLARD DO Report #: [id number] Location: CT Room/Bed: Procedure: 5519-2183 C T/CTA ABD/PEL/RUN OFF Exam Date: 11/19/18 [...] BALLARD DO CT ABDOMEN/PELVIS WO 2018-06-06 16:13:00 [place] [address] Patient Name: AMBROSIO CHILD MR #: [id number] : 1975 Age/Sex: 42/F Req #: [id number] Adm Physician: Ordered by: JUSTINE ZHANG MD Report #: [id number] Location: CT Room/Bed: Procedure: 4109-6950 CT /CT ABDOMEN/PELVIS WO Exam Date: 06/06/18 [...] 02/24 1620 COPY TO: JUSTINE ZHANG MD [id number] 13:06:00 RUN DATE: 04/25/18 [facility] PAGE 1 RUN TIME: 1306 Specimen Inqui ry RUN USER: INTERFACE PATIENT: AMBROSIO CHILD ACCT #: V [id number] LOC: [facility] U #: [id number] AGE/SX: 42/F ROOM: [facility] RE04/22/18[facility] DR: Poli Bazan MD : [birth year] BED: A DIS: STATUS: ADM Afua TLOC: SPEC #: [id number] RECD: 04/24/18 STATUS: BEHZAD REQ #: [id number] ALIRIO: 04/24/[address] [facility] [address]: Evans Deleon MD ENTERED: 04/24/18 SP TYPE: GALLBLADD OTHR DR: Vandana Ballard Fernando E MDORDERED: GROSS COPIES TO: Juan Pablo Ballard DO [address] [place] [address] Evans Deleon MD [address] [place] [address] [email or web address] MARKERS: ABNORMAL TISSUE, GALLBLADDER PROCEDURES: GROSS (04/25/18113) TISSUES: GALLBLADDER, NOS CLINICAL HISTORY COLLECTION DATE: 04/24/2018 CHOLECYSTITIS FINAL DIAGNOSIS Gallbladder, cholecystectomy: CHRONIC CHOLECYSTITIS CHOLESTEROLOSIS NEGATIVE FOR MALIGNANCY FA/sm A [id number] CONTINUED ON NEXT PAGE RUN DATE: 04/25/18 [place] - Lab PAGE 2 RUN TIME: 1306 Speci men Inquiry RUN USER: INTERFACE SPEC #: [id number] PATIENT: AMBROSIO DEL ROSARIO #[id number] (Continued) TOYA ROSCOPIC The specimen is received in formalin, labeled [...] in a single cassette. GROSS PERFORMED AT [facility] [address] [place] [address] (p)[phone] MICROSCOPIC All of the stains, including any con trols performed, stain appropriately. MICROSCOPIC PERFORMED AT [facility] [address] [place] [address] (p)[phone] PERFORMING SITE Diagnosis performed at: [facility] [address] [facility] [place] [address] Signed SIGNATURE ON FILE Jona Girard MD 04/25/18 1306 END OF REPORT CBC W/AUTO [id number] 07:37:00* Test Item Value Reference Range Interpretation [...] (test code = MDIFF) NO HEPATIC FUNCTION [id number] 07:33:00* Test Item Value Reference Range Interpretation [...] due to change in reagent. COMPREHENSIVE METABOLIC [id number] 10:11:00* Test Item Value Reference Range Interpretation [...] due to change in reagent. COMPREHENSIVE METABOLIC [id number] 09:55:00* Test Item Value Reference Range Interpretation [...] code = ALKP) IUnit/L 45-117 CBC W/AUTO [id number] 09:53:00* Test Item Value Reference Range Interpretation [...] (test code = MDIFF) NO CBC W/AUTO [id number] 09:50:00* Test Item Value Reference Range Interpretation [...] 0.0-0.2 - HEPA IMAG INCL GB W [id number] 09:12:00 FAX: Poli Alvarado MD [place]: B St: ADM FAX: Juan Pablo Rdz DO [phone] Name: AMBROSIO CHILD [facility] : 1975 Age/S: 42/F Poonam Munoz guevara Unit #: [id number] Loc: [id number] [place] [address] Phys: Poli Bazan MD Acct: [id number] Dis Date: Status: ADM IN PHONE #: [phone] Exam Date: 04/23/2018909 FAX #: [phone] Reason: contracted gallbladder w/ abd pain. EXAMS: CPT CODE: [id number] HEPA IMAG INCL GB W PHA [id number] HISTORY: Abdominal pain and contracted gallbladder. COMPARISON: [...] Trnscrd Da te/Time/By: 04/23/2018 (0912) : By: Norma.TH4 Orig Print D/T: S: 04/23 (15) PAGE 1 Signed Report [id number] 07:41:00* Test Item Value Reference Range Interpretation Comments TROPONIN-I (test code = TROPI) <0.015 ng/mL 0-0.045 N COMMENTS TO LAND PLANNER: COLLECT 3 HOURS AFTER PREVIOUS [id number] 05:22:00* Test Item Value Reference Range Interpretation Comments TROPONIN-I (test code = TROPI) <0.015 ng/mL 0-0.045 N COMMENTS TO LAND PLANNER: COLLECT 3 HOURS AFTER PREVIOUS [id number] 23:15:00* Test Item Value Reference Range Interpretation Comments TROPONIN-I (test code = TROPI) <0.015 ng/mL 0-0.045 N - CT ABD PELVIS W/O [id number] 22:52:00 Name: AMBROSIO CHILD [facility] : 1975 Age/S: 42 / F [address] Unit #: [id number] Loc: [place] [address] Phys: Gay Washburn DO Acct: [id number] Dis Date: Status: REG ER PHONE #: [phone] Exam Date: 04/22/20185 FAX #: [phone] Reason: abdominal pain, r/o appendicitis EXAMS: CPT CODE: [id number] CT ABD PELVIS W/O CONT 78923 REASON FOR EXAM: abdominal pain, r/o appendicitis EXAM ORDER DATE: 04/22/2018 10:11 PM Ordering M.DMendoza: Gay Washburn DO PROCEDURE: - CT ABD [...] t:HUMER[facility] CTDI: DLP: Trnscb Date/Time: (217) Selene Orig Print D/T: S: 04/22/2018 (2 255) CTDI: DLP: PAGE 1 Signed Rep ort - US ABDOMEN [id number] 21:22:00 Name: AMBROSIO CHILD [facility] : 1975 Age/S: 42 / F [address] Unit #: [id number] Loc: [place] [address] Phys: Justin Washburn DO Acct: [id number] Di s Date: Status: REG ER PHONE #: Exam Date: 04/22/20182111 FAX #: Reason: Abdominal Pain EXAMS: CPT CODE: [id number] US ABDOMEN LTD 06907 REASON FOR EXAM: Abdominal Pain EXAM ORDER DATE: 04/22/2018 8:11 PM At tonyaing M.D.: Gay Washburn DO PROCEDURE: - US ABDOMEN [...] DO; Rafia Washburn DO Technologist: ELIZABETH YADAV Trnmdb Date/Time: 04/22/2018 (2121) tNANO Orig Print D/T: S: 04/22/2018 (2124) Probe: PAGE 1 Signed Report BASIC METABOLIC [id number] 20:49:00* Test Item Value Reference Range Interpretation [...] CA) 9.0 mg/dL 8.5-10.1 N HEPATIC FUNCTION [id number] 20:49:00* Test Item Value Reference Range Interpretation [...] reference range due to change in reagent. [id number] 20:49:00* Test Item Value Reference Range Interpretation Comments LIPASE (test code = LIP) 150 U/L 73.0-393.0 N HCG SERUM [id number] 20:49:00* Test Item Value Reference Range Interpretation Comments HCG SERUM QUAL (test code = HCGQL) NEGATIVE NEGATIVE This HCGQL test is NOT applicable for MALE patients.Check with nurse about probable order error.If Tumor Marker Test needed, nurse should order test "HCGTU"(Test #550.29347) BASIC METABOLIC [id number] 20:46:00* Test Item Value Reference Range Interpretation [...] CA) 9.0 mg/dL 8.5-10.1 N HEPATIC FUNCTION [id number] 20:46:00* Test Item Value Reference Range Interpretation [...] reference range due to change in reagent. [id number] 20:46:00* Test Item Value Reference Range Interpretation Comments LIPASE (test code = LIP) 150 U/L 73.0-393.0 N HCG SERUM [id number] 20:46:00* Test Item Value Reference Range Interpretation Comments HCG SERUM QUAL (test code = HCGQL) NEGATIVE BASIC METABOLIC [id number] 20:42:00* Test Item Value Reference Range Interpretation [...] code = CA) mg/dL 8.5-10.1 HEPATIC FUNCTION [id number] 20:42:00* Test Item Value Reference Range Interpretation [...] TOTAL (test code = ALKP) IUnit/L 45-117 [id number] 20:42:00* Test Item Value Reference Range Interpretation Comments LIPASE (test code = LIP) U/L 73.0-393.0 HCG SERUM [id number] 20:42:00* Test Item Value Reference Range Interpretation Comments HCG SERUM QUAL (test code = HCGQL) NEGATIVE - XR CHEST 1 [id number] 20:34:00 FAX: Juan Pablo Rdz DO [phone] [place]: St: PRE FAX: Gay Washburn DO Name: DANYELLAMBROSIO [facility] : 1975 Age/S: 42/F [address] [facility] Unit #: [id number] Loc: [place] [address] Phys: Gay Washburn DO Acct: [id number] Dis Date: Status: PRE ER PHONE #: [phone] Exam Date: 04/22/20182029 FAX #: [phone] Reason: chest pain EXAMS: CPT CODE: [id number] XR CHEST 1 V 28430 REASON FOR EXAM: chest pain EXAM ORDER [...] Ballard DO; Gay Washburn DO Technologist: Sai WAY(Whit) Trnmdmark Date/Time/By: 04/22/2018 (2033) : By: Norma.VTL Orig Print D/T: S: 04/22/2018 (2037) PAGE 1 Signed Report CBC W/O [id number] 20:22:00* Test Item Value Reference Range Interpretation [...] MPV) 10.2 fL 6.7-11.0 N CBC W/O [id number] 20:17:00* Test Item Value Reference Range Interpretation [...] (test code = MPV) fL 6.7-11.0 URINALYSIS [id number] 20:17:00* Test Item Value Reference Range Interpretation [...] FEW #/LPF FEW Urine Source? Clean CatchURINALYSIS [id number] 20:12:00* Test Item Value Reference Range Interpretation [...] per HPF 0-5 Urine Source? Clean CatchURINALYSIS [id number] 21:31:00* Test Item Value Reference Range Interpretation [...] Urine Source? Clean CatchDRUGS OF ABUSE SCREEN [id number] 21:31:00* Test Item Value Reference Range Interpretation [...] NEGATIVE <300 ng/mL Urine Source? Clean CatchURINALYSIS [id number] 21:09:00* Test Item Value Reference Range Interpretation [...] Urine Source? Clean CatchDRUGS OF ABUSE SCREEN [id number] 21:09:00* Test Item Value Reference Range Interpretation [...] ng/mL Urine Source? Clean Catch- US ABDOMEN [id number] 20:27:00 Name: AMBROSIO CHILD [facility] : 1975 Age/S: 42 / F [address] Unit #: [id number] Loc: [place], [place] [address] Phys: RITA ORTIZ MD Acct: [id number] Di s Date: Status: REG ER PHONE #: [phone] Exam Date: 03/19/20181955 FAX #: Reason: RUQ pain, vomiting EXAMS: CPT CODE: [id number] US ABDOMEN LTD 96873 REASON FOR EXAM: RUQ pain, vomiting EXAM [...] Moncada RDMS Trnscb Date/Ti me: 03/19/2018 (2026) tNANO Orig Print D/T: S: 2018 (2029) Probe: PAGE 1 Anu d Report [id number] 19:06:00* Test Item Value Reference Range Interpretation Comments TROPONIN-I (test code = TROPI) <0.015 ng/mL 0-0.045 N [id number] 18:49:00* Test Item Value Reference Range Interpretation Comments LIPASE (test code = LIP) 180 U/L 73.0-393.0 N [id number] 18:49:00* Test Item Value Reference Range Interpretation Comments MAGNESIUM (test code = MAG) 2.2 mg/dL 1.8-2.4 N BASIC METABOLIC [id number] 16:44:00* Test Item Value Reference Range Interpretation [...] CA) 8.9 mg/dL 8.5-10.1 N HEPATIC FUNCTION [id number] 16:44:00* Test Item Value Reference Range Interpretation [...] due to change in reagent. HCG SERUM [id number] 16:44:00* Test Item Value Reference Range Interpretation Comments HCG SERUM QUAL (test code = HCGQL) NEGATIVE NEGATIVE This HCGQL test is NOT applicable for MALE patients.Check with nurse about probable order error.If Tumor Marker Test needed, nurse should order test "HCGTU"(Test #550.41820) [id number] 16:44:00* Test Item Value Reference Range Interpretation Comments ACETAMINOPHEN (test code = ACET) < 10 mcg/mL 10-30 L A RANGE OF 10-30 mcg/mL IS A THERAPEUTIC RANGE. TOXIC CONCENTRATIONS: >150 mcg/mL AT 4 HOURS AFTER INGESTION >= 50 mcg/mL AT 12 HOURS AFTER INGESTION [id number] 16:44:00* Test Item Value Reference Range Interpretation Comments SALICYLATE (test code = ALBERTO) 1.8 mg/dL 2.8-20.0 L [id number] 16:44:00* Test Item Value Reference Range Interpretation [...] ANADDITIONAL CHARGE TO THE PATIENT. BASIC METABOLIC [id number] 16:34:00* Test Item Value Reference Range Interpretation [...] code = CA) mg/dL 8.5-10.1 HEPATIC FUNCTION [id number] 16:34:00* Test Item Value Reference Range Interpretation [...] code = ALKP) IUnit/L 45-117 HCG SERUM [id number] 16:34:00* Test Item Value Reference Range Interpretation Comments HCG SERUM QUAL (test code = HCGQL) NEGATIVE NEGATIVE This HCGQL test is NOT applicable for MALE patients.Check with nurse about probable order error.If Tumor Marker Test needed, nurse should order test "HCGTU"(Test #550.19987) [id number] 16:34:00* Test Item Value Reference Range Interpretation Comments ACETAMINOPHEN (test code = ACET) mcg/mL 10-30 [id number] 16:34:00* Test Item Value Reference Range Interpretation Comments SALICYLATE (test code = ALBERTO) mg/dL 2.8-20.0 [id number] 16:34:00* Test Item Value Reference Range Interpretation Comments ALCOHOL (test code = ALC) mg/dL 0-3 BASIC METABOLIC [id number] 16:34:00* Test Item Value Reference Range Interpretation [...] code = CA) mg/dL 8.5-10.1 HEPATIC FUNCTION [id number] 16:34:00* Test Item Value Reference Range Interpretation [...] code = ALKP) IUnit/L 45-117 HCG SERUM [id number] 16:34:00* Test Item Value Reference Range Interpretation Comments HCG SERUM QUAL (test code = HCGQL) NEGATIVE NEGATIVE This HCGQL test is NOT applicable for MALE patients.Check with nurse about probable order error.If Tumor Marker Test needed, nurse should order test "HCGTU"(Test #550.01506) [id number] 16:34:00* Test Item Value Reference Range Interpretation Comments ACETAMINOPHEN (test code = ACET) mcg/mL 10-30 [id number] 16:34:00* Test Item Value Reference Range Interpretation Comments SALICYLATE (test code = ALBERTO) mg/dL 2.8-20.0 [id number] 16:34:00* Test Item Value Reference Range Interpretation Comments ALCOHOL (test code = ALC) mg/dL 0-3 CBC W/O [id number] 16:23:00* Test Item Value Reference Range Interpretation [...] code = MPV) 9.9 fL 6.7-11.0 N BODY [id number] 14:01:00Colorless (05/25/16 9:01 AM)[facility] [id number] 14:01:00Clear (05/25/16 9:01 AM)[facility] 2016-05-25 14:01:00Colorless (05/25/16 9:01 AM)[facility] 2016-05-25 14:01:000[facility] [id number] 14:01:001[facility] [id number] 14:01:00* Test Item Value Reference Range Interpretation Comments Tube Num CSF (test code = Tube Num CSF) 4 1 [facility] [id number] 14:01:0057[facility] FLU[facility] 2016-05-25 14:01:0043[facility] [id number] 14:01:001.1[facility] ZcqsssmBLEOIEKCZO7902-39-01 14:01:00<35.0[facility] FlazqshRMCREHQIEM4682-35-67 14:01:002.4[facility] GsxpnqzKWNEQMUHIO1405-28-07 14:01:0026.3[facility] [id number] 14:01:056868.0[facility] RfqungfYLLSYLFEOW0713-84-16 14:01:00 751[facility] EqyupqcSXLCAUYQCQ8426-85-15 14:01:000.5[facility] 2016-05-25 13:18:25Negative (05/25/16 8:18 AM)[facility]annHEPT[facility]ILI[facility] W PHARM [place] [address] Patient Name: AMBROSIO CHILD MR #: [id number] : 1975 Age/Sex: 41/F Req #: [id number] [facility] Physician: Ordered by: JUSTINE ZHANG MD Report #: [id number] Location: [place] Room/Bed: Procedure: [id number] NM/HEPTOBILIARY W PHARM Exam Date: 04/11/17 Exam [...] TO: JUSTINE ZHANG MD CT ABDOMEN/PELVIS WO [place] [address] Patient Name: AMBROSIO CHILD MR #: [id number] : 1975 Age/Sex: 41/F Req #: [id number] Adm Physician: Ordered by: BALLARD ANDREW DO Report #: [id number] Location: CT Room/Bed: Procedure: [id number] CT/CT ABDOMEN/PELVIS WO Exam D ate: 12/19/16 [...]
== END 2019-10-16 04:53 | disposition home or self-care (01) ==
LOC: ER 03:01
DX: M54.5 Low back pain (principal); R10.12 Left upper quadrant pain; R11.2 Nausea with vomiting, unspecified; I10 Essential (primary) hypertension; E78.5 Hyperlipidemia, unspecified; Z87.442 Personal history of urinary calculi
CPT/HCPCS: 36415; 74176; 80053; 81001; 81025; 82150; 83690; 85025; 93005; 99284; J1885; J2405

== ENCOUNTER 2020-02-28 14:16 | Emergency (ER) | payer SELFPAY ==
[~2020-02-28] VITALS: Ht 149.9 cm; Wt 83.5 kg
[2020-02-28] MEDS ORDERED: LACTULOSE SYRUP 20 GM/30 ML UDC PO ONE (15:00)
[2020-02-28] MEDS ORDERED: BISACODYL 5 MG TAB EC PO ONE (15:15)
[2020-02-28] MEDS ORDERED: MINERAL OIL 132 ML BTL PR ONE (15:15)
[2020-02-28] MEDS ORDERED: BISACODYL 10 MG SUPP PR ONE (15:15)
[2020-02-28] MEDS ORDERED: COLACE100 MG PO (17:25)
== END 2020-02-28 18:04 | disposition home or self-care (01) ==
LOC: ER 14:22
DX: K59.00 Constipation, unspecified (principal); Z87.442 Personal history of urinary calculi; I10 Essential (primary) hypertension; J45.909 Unspecified asthma, uncomplicated; E78.5 Hyperlipidemia, unspecified; Z88.0 Allergy status to penicillin; Z88.2 Allergy status to sulfonamides; Z88.8 Allergy status to other drugs, medicaments and biological substances; Z88.6 Allergy status to analgesic agent; Z91.041 Radiographic dye allergy status; Z79.02 Long term (current) use of antithrombotics/antiplatelets; Z95.820 Peripheral vascular angioplasty status with implants and grafts
CPT/HCPCS: 74018; 81025; 99283

== ENCOUNTER 2021-01-24 13:23 | Emergency (ER) | payer SELFPAY ==
[~2021-01-24] VITALS: Ht 149.9 cm; Wt 83.5 kg
[~2021-01-24 13:23] MED LIST changes: +COLACE100 MG PO
[2021-01-24 14:21] LABS: BASOPHILS # (AUTO) 0.1 (0.0-0.1); BASOPHILS % 0.8 % (0.0-1.0); EOSINOPHILS # (AUTO) 0.2 (0.0-0.4); EOSINOPHILS % 1.8 % (0.0-6.0); HEMATOCRIT 46.6 % (34.2-44.1); HEMOGLOBIN 14.7 g/dL (12.0-16.0); LYMPHOCYTES # (AUTO) 1.6 (1.0-3.2); LYMPHOCYTES % 17.5 % (18.0-39.1); MEAN CORPUSCULAR HEMOGLOBIN 28.2 pg (28-32); MEAN CORPUSCULAR HGB CONC 31.5 g/dL (31-35); MEAN CORPUSCULAR VOLUME 89.4 fL (81-99); MONOCYTES # (AUTO) 0.7 (0.2-0.8); MONOCYTES % 7.6 % (4.4-11.3); NEUTROPHILS # (AUTO) 6.4 (2.1-6.9); PLATELET COUNT 368 x10e3/uL (140-360); RED BLOOD COUNT 5.21 x10e6/uL (3.6-5.1); RED CELL DISTRIBUTION WIDTH 12.6 % (11.7-14.4)
[2021-01-24 14:28] LABS: CLARITY,URINE HAZY (CLEAR); COLOR,URINE YELLOW (YELLOW); LEUKOCYTE ESTERASE ,URINE LARGE (NEGATIVE); NITRITE,URINE NEGATIVE (NEGATIVE)
[2021-01-24 14:29] LABS: KETONES,URINE NEGATIVE (NEGATIVE); PROTEIN,URINE DIPSTICK NEGATIVE (NEGATIVE); URINE UROBILINOGEN 0.2 mg/dL (0.2 - 1)
[2021-01-24 14:32] LABS: BACTERIA,URINE FEW /HPF; EPITHELIAL CELLS,URINE FEW /LPF; WBC,URINE (MAN) >50 /HPF (0-5)
[2021-01-24] MEDS ORDERED: ONDANSETRON HCL INJ 2MG/ML 2ML 2 MG/ML VIAL IV STA (14:33)
[2021-01-24] MEDS ORDERED: KETOROLAC TROMETHAMINE 30 MG/ML VIAL IV STA (14:33)
[2021-01-24 14:40] LABS: ALBUMIN/GLOBULIN RATIO 1.2 (0.8-2.0); ANION GAP 14.1 mmol/L (8-16); CALCIUM 9.1 mg/dL (8.4-10.2); CREATININE, SERUM 0.88 mg/dL (0.57-1.11); POTASSIUM 4.1 mmol/L (3.5-5.1)
[2021-01-24] MEDS ORDERED: SODIUM CHLORIDE 0.9% 1000ML 1,000 ML IV ONE (14:45)
[2021-01-24] MEDS ORDERED: CEFTRIAXONE 1 GM in SODIUM CHLORIDE 0.9% 50ML 50 ML IV ONE (16:00)
== END 2021-01-24 17:59 | disposition home or self-care (01) ==
LOC: ER 14:23
DX: M54.50 Low back pain, unspecified (principal); N12 Tubulo-interstitial nephritis, not specified as acute or chronic; R11.2 Nausea with vomiting, unspecified; I10 Essential (primary) hypertension; E78.5 Hyperlipidemia, unspecified; J45.909 Unspecified asthma, uncomplicated
CPT/HCPCS: 36415; 74176; 80053; 81001; 84702; 85025; 87086; 87186; 99284; J0696; J2405; J7030

== ENCOUNTER 2022-07-18 18:22 | Emergency (ER) | payer SELFPAY ==
[~2022-07-18] VITALS: Ht 149.9 cm; Wt 83.5 kg
[2022-07-18 19:35] LABS: BASOPHILS # (AUTO) 0.1 (0.0-0.1); BASOPHILS % 0.5 % (0.0-1.0); EOSINOPHILS # (AUTO) 0.1 (0.0-0.4); EOSINOPHILS % 0.9 % (0.0-6.0); HEMATOCRIT 45.8 % (34.2-44.1); LYMPHOCYTES # (AUTO) 3.8 (1.0-3.2); LYMPHOCYTES % 26.9 % (18.0-39.1); MEAN CORPUSCULAR HEMOGLOBIN 28.2 pg (28-32); MEAN CORPUSCULAR HGB CONC 32.8 g/dL (31-35); MEAN CORPUSCULAR VOLUME 86.3 fL (81-99); MONOCYTES # (AUTO) 0.9 (0.2-0.8); MONOCYTES % 6.4 % (4.4-11.3); NEUTROPHILS # (AUTO) 9.1 (2.1-6.9); NEUTROPHILS % 64.9 % (38.7-80.0); PLATELET COUNT 429 x10e3/uL (140-360); RED BLOOD COUNT 5.31 x10e6/uL (3.6-5.1); RED CELL DISTRIBUTION WIDTH 12.9 % (11.7-14.4)
[2022-07-18 19:46] LABS: CLARITY,URINE SL CLOUDY (CLEAR); COLOR,URINE YELLOW (YELLOW); KETONES,URINE NEGATIVE (NEGATIVE); LEUKOCYTE ESTERASE ,URINE NEGATIVE (NEGATIVE); NITRITE,URINE NEGATIVE (NEGATIVE); PROTEIN,URINE DIPSTICK NEGATIVE (NEGATIVE); URINE UROBILINOGEN 0.2 mg/dL (0.2 - 1)
[2022-07-18 19:50] LABS: ALBUMIN/GLOBULIN RATIO 1.1 (0.8-2.0); ANION GAP 14.5 mmol/L (8-16); CALCIUM 9.3 mg/dL (8.4-10.2); CREATININE, SERUM 0.94 mg/dL (0.57-1.11); POTASSIUM 3.5 mmol/L (3.5-5.1)
[2022-07-18 20:00] LABS: BACTERIA,URINE MODERATE /HPF; EPITHELIAL CELLS,URINE MODERATE /LPF
[2022-07-18] MEDS ORDERED: Morphine 4mg INJECTION 4 MG/ML INJ IV STA (20:34)
[2022-07-18] MEDS ORDERED: ONDANSETRON HCL INJ 2MG/ML 2ML 2 MG/ML VIAL IV STA (20:34)
[2022-07-18] MEDS ORDERED: PROMETHAZINE 25MG/ NS 50ML (IV) IV STA (22:13)
[2022-07-18] MEDS ORDERED: PROMETHAZINE HC25 M1 PO (22:51)
[2022-07-18] MEDS ORDERED: ULTRAM 50MG50 MG PO (22:51)
[2022-07-18 23:08] VITALS: BP 131/73; PULSE 84; RESP 18; TEMP 98.6; O2SAT 98
== END 2022-07-18 23:15 | disposition home or self-care (01) ==
LOC: ER 18:33
DX: R10.11 Right upper quadrant pain (principal); K76.0 Fatty (change of) liver, not elsewhere classified; I10 Essential (primary) hypertension; E78.5 Hyperlipidemia, unspecified; J45.909 Unspecified asthma, uncomplicated; R94.31 Abnormal electrocardiogram [ECG] [EKG]; Z87.442 Personal history of urinary calculi
CPT/HCPCS: 36415; 74176; 80053; 81001; 81025; 83690; 85025; 93005; 99284; J2270; J2405; J2550

== ENCOUNTER 2023-11-17 19:09 | Emergency (ER) | payer SELFPAY ==
[~2023-11-17] VITALS: Ht 149.9 cm; Wt 102.1 kg
[~2023-11-17 19:09] MED LIST changes: +AZITHROMYCIN250 MG PO; +BENZONATATE100 MG PO; +KETOROLAC TROME10 MG PO; +MEDROL4 M2 PO; +ONDANSETRON ODT4 MG PO; +ONDANSETRON ODT4 MG SL; +PAXLOVID 300-11 EAC1 PO; +PEPCID20 MG PO; +PREDNISONE20 MG PO; +PROMETHAZINE HC25 M1 PO; +ULTRAM 50MG50 MG PO; +VENTOLIN HFA18 GM INH
[2023-11-17 19:47] VITALS: TEMP 98.8
[2023-11-17 20:11] LABS: STREPTOCOCCUS GRP A ANTIGEN NEGATIVE (NEGATIVE)
[2023-11-17 20:29] LABS: INFLUENZAE A&B ANTIGEN (RAPID) NEGATIVE (NEGATIVE); RESPIRATORY SYNC. VIRUS NEGATIVE (NEGATIVE)
[2023-11-17 23:00] VITALS: PULSE 78; RESP 17
[2023-11-17 23:09] VITALS: BP 176/88; O2SAT 100
== END 2023-11-17 23:08 | disposition home or self-care (01) ==
LOC: ER 19:15
DX: R05.9 Cough, unspecified (principal); J06.9 Acute upper respiratory infection, unspecified; I10 Essential (primary) hypertension; J44.9 Chronic obstructive pulmonary disease, unspecified; I25.10 Atherosclerotic heart disease of native coronary artery without angina pectoris; E78.5 Hyperlipidemia, unspecified; Z11.52 Encounter for screening for COVID-19; Z87.442 Personal history of urinary calculi
CPT/HCPCS: 71045; 83518; 87070; 87400; 87420; 99283; U0002

== ENCOUNTER 2023-12-04 14:31 | Emergency (ER) | payer BC ==
[~2023-12-04] VITALS: Ht 149.9 cm; Wt 102.1 kg
[2023-12-04 14:41] VITALS: PULSE 74; RESP 18; TEMP 98.8; O2SAT 98
[2023-12-04 15:15] LABS: STREPTOCOCCUS GRP A ANTIGEN NEGATIVE (NEGATIVE)
[2023-12-04] MEDS ORDERED: LEVOFLOXACIN750 MG PO (15:18)
[2023-12-04 15:26] LABS: INFLUENZAE A&B ANTIGEN (RAPID) NEGATIVE (NEGATIVE); RESPIRATORY SYNC. VIRUS NEGATIVE (NEGATIVE)
== END 2023-12-04 16:00 | disposition home or self-care (01) ==
LOC: ER 14:44
DX: R50.9 Fever, unspecified (principal); R05.9 Cough, unspecified; I10 Essential (primary) hypertension; J44.9 Chronic obstructive pulmonary disease, unspecified; I25.10 Atherosclerotic heart disease of native coronary artery without angina pectoris; E78.5 Hyperlipidemia, unspecified; Z11.52 Encounter for screening for COVID-19; Z87.442 Personal history of urinary calculi
CPT/HCPCS: 71046; 83518; 87070; 87400; 87420; 99283; U0002

== ENCOUNTER 2024-02-02 18:00 | Emergency (ER) | payer SELFPAY ==
[~2024-02-02] VITALS: Ht 149.9 cm; Wt 102.1 kg
[2024-02-02 18:00] VITALS: PULSE 71; RESP 18; TEMP 98.3; O2SAT 98
[~2024-02-02 18:00] MED LIST changes: +LEVOFLOXACIN750 MG PO
[2024-02-02 18:55] LABS: STREPTOCOCCUS GRP A ANTIGEN NEGATIVE (NEGATIVE)
[2024-02-02 18:57] LABS: INFLUENZA A AG NEGATIVE (NEGATIVE)
[2024-02-02 18:58] LABS: CORONAVIRUS COVID-19 AG NEGATIVE (NEGATIVE); INFLUENZA B AG NEGATIVE (NEGATIVE)
== END 2024-02-02 19:48 | disposition home or self-care (01) ==
LOC: ER 18:19
DX: R05.9 Cough, unspecified (principal); J06.9 Acute upper respiratory infection, unspecified; I10 Essential (primary) hypertension; J44.9 Chronic obstructive pulmonary disease, unspecified; J45.909 Unspecified asthma, uncomplicated; Z11.52 Encounter for screening for COVID-19
CPT/HCPCS: 83518; 87070; 99283

== ENCOUNTER 2024-08-01 20:14 | Emergency (ER) | payer SELFPAY ==
[~2024-08-01] VITALS: Ht 147.3 cm; Wt 99.8 kg
[2024-08-01 20:28] VITALS: RESP 18; TEMP 98.9
[2024-08-01 20:46] LABS: CLARITY,URINE CLEAR (CLEAR); COLOR,URINE YELLOW (YELLOW)
[2024-08-01 20:47] LABS: BILIRUBIN,URINE NEGATIVE (NEGATIVE); GLUCOSE, URINE NEGATIVE (NEGATIVE); KETONES,URINE NEGATIVE (NEGATIVE); LEUKOCYTE ESTERASE ,URINE TRACE (NEGATIVE); NITRITE,URINE NEGATIVE (NEGATIVE); PH,URINE 5.5 (5 - 7); PROTEIN,URINE DIPSTICK NEGATIVE (NEGATIVE); URINE UROBILINOGEN 0.2 mg/dL (0.2 - 1)
[2024-08-01 20:51] LABS: BACTERIA,URINE MODERATE /HPF; EPITHELIAL CELLS,URINE MODERATE /LPF; RBC,URINE 0-5 /HPF (0-5)
[2024-08-01 20:53] LABS: STREPTOCOCCUS GRP A ANTIGEN NEGATIVE (NEGATIVE)
[2024-08-01 20:58] LABS: CORONAVIRUS COVID-19 AG NEGATIVE (NEGATIVE); INFLUENZA A AG NEGATIVE (NEGATIVE); INFLUENZA B AG NEGATIVE (NEGATIVE)
[2024-08-01 22:09] VITALS: PULSE 75
[2024-08-01 22:27] VITALS: RESP 18; TEMP 98.2; O2SAT 98
== END 2024-08-01 22:28 | disposition home or self-care (01) ==
LOC: ER 20:29
DX: R05.9 Cough, unspecified (principal); J06.9 Acute upper respiratory infection, unspecified; B34.9 Viral infection, unspecified; N39.0 Urinary tract infection, site not specified; I10 Essential (primary) hypertension; J44.9 Chronic obstructive pulmonary disease, unspecified; J45.909 Unspecified asthma, uncomplicated; Z11.52 Encounter for screening for COVID-19
CPT/HCPCS: 71045; 81001; 83518; 87070; 99284

== ENCOUNTER 2024-08-06 20:53 | Emergency (ER) | payer SELFPAY ==
[~2024-08-06] VITALS: Ht 147.3 cm; Wt 99.8 kg
[2024-08-06 21:07] VITALS: TEMP 98.5
[2024-08-06 21:17] VITALS: PULSE 96; RESP 17
[2024-08-06 21:17] LABS: STREPTOCOCCUS GRP A ANTIGEN NEGATIVE (NEGATIVE)
[2024-08-06 21:29] LABS: CORONAVIRUS COVID-19 AG NEGATIVE (NEGATIVE)
[2024-08-06 21:48] VITALS: BP 137/90; PULSE 85; RESP 17; TEMP 98.4; O2SAT 98
== END 2024-08-06 21:54 | disposition home or self-care (01) ==
LOC: ER 21:04
DX: R05.9 Cough, unspecified (principal); J06.9 Acute upper respiratory infection, unspecified; I10 Essential (primary) hypertension; J44.9 Chronic obstructive pulmonary disease, unspecified; J45.909 Unspecified asthma, uncomplicated; Z11.52 Encounter for screening for COVID-19
CPT/HCPCS: 71046; 83518; 87070; 99283

== ENCOUNTER 2024-11-10 23:32 | Emergency (ER) | payer SELFPAY ==
[~2024-11-10] VITALS: Ht 147.3 cm; Wt 99.8 kg
[2024-11-10 23:46] VITALS: PULSE 88; RESP 16; TEMP 98.4; O2SAT 100
[2024-11-11 00:09] LABS: CORONAVIRUS COVID-19 AG NEGATIVE (NEGATIVE)
== END 2024-11-11 00:29 | disposition home or self-care (01) ==
LOC: ER 23:42
DX: M79.89 Other specified soft tissue disorders (principal); R53.81 Other malaise; I10 Essential (primary) hypertension; J44.9 Chronic obstructive pulmonary disease, unspecified; I25.10 Atherosclerotic heart disease of native coronary artery without angina pectoris; J45.909 Unspecified asthma, uncomplicated; Z11.52 Encounter for screening for COVID-19
CPT/HCPCS: 93005; 99283

== ENCOUNTER 2024-12-03 19:14 | Emergency (ER) | payer SELFPAY ==
[~2024-12-03] VITALS: Ht 147.3 cm; Wt 99.8 kg
[2024-12-03 19:34] VITALS: TEMP 98.2
[2024-12-03 20:18] LABS: BASOPHILS % 0.6 % (0.0-1.0); EOSINOPHILS % 1.9 % (0.0-6.0); LYMPHOCYTES % 31.7 % (18.0-39.1); MONOCYTES % 6.2 % (4.4-11.3); NEUTROPHILS % 59.4 % (38.7-80.0); RED CELL DISTRIBUTION WIDTH 12.8 % (11.7-14.4)
[2024-12-03] MEDS: ONDANSETRON HCL INJ 2MG/ML 2ML 2 MG/ML VIAL IV STA (20:19)
[2024-12-03 20:20] LABS: LEUKOCYTE ESTERASE ,URINE NEGATIVE (NEGATIVE); PROTEIN,URINE DIPSTICK NEGATIVE (NEGATIVE); URINE UROBILINOGEN 0.2 mg/dL (0.2 - 1)
[2024-12-03] MEDS: SODIUM CHLORIDE 0.9% 1000ML 1,000 ML IV STA (20:20)
[2024-12-03 20:23] LABS: PREGNANCY TEST, URINE NEGATIVE (NEGATIVE)
[2024-12-03 20:32] LABS: EPITHELIAL CELLS,URINE MODERATE /LPF
[2024-12-03 20:43] LABS: EST GLOMERULAR FILTRATION RATE 76.0 ML/MIN (>=60)
[2024-12-03] MEDS: LIDOCAINE VISC 2% SOLN 15 ML UDC PO STA (21:23)
[2024-12-03] MEDS: MAGNESIUM/ALUMINUM/SIMETHICONE 30 ML UDC PO STA (21:23)
[2024-12-03] MEDS: BELLADONNA ALK/PHENOBARBITAL 5 ML UDC PO ONE (21:23)
[2024-12-03 23:15] VITALS: PULSE 65; RESP 16
[2024-12-03 23:43] VITALS: BP 126/82; PULSE 67; RESP 16; TEMP 98.4; O2SAT 95
[2024-12-03] MEDS ORDERED: PANTOPRAZOLE SO40 MG PO (23:43)
== END 2024-12-03 23:55 | disposition home or self-care (01) ==
LOC: ER 19:17
DX: R10.11 Right upper quadrant pain (principal); R11.2 Nausea with vomiting, unspecified; I10 Essential (primary) hypertension; J44.9 Chronic obstructive pulmonary disease, unspecified; I25.10 Atherosclerotic heart disease of native coronary artery without angina pectoris; J45.909 Unspecified asthma, uncomplicated
CPT/HCPCS: 36415; 74176; 80053; 81001; 81025; 83690; 85025; 99284; J2405; J7030